=== PATIENT | female | born 1965 | race Caucasian/White ===

== ENCOUNTER 2022-07-29 12:00 | Emergency (ER) | payer OTHER, SELFPAY ==
[2022-07-29 12:07] VITALS: BP 144/94; PULSE 84; TEMP 37.3; O2SAT 97; BMI 25.6
--- NOTE | 2022-07-29 13:04 | ED.BACK ---
HPI - Back Pain/Injury General Chief Complaint: Back Injury/Pain Stated Complaint: Lower right side back pain Time Seen by Provider: 07/29/22 12:21 History of Present Illness HPI Narrative: This 56-year-old female comes in with right-sided low back pain that radiates down her leg. She does have a history of back problems and has taken a steroid in the past which helped improve these symptoms previously. She went to her chiropractor who instructed that she should come here for further evaluation and treatment. She does not report any recent injury event or strenuous activity. Related Data Home Medications Medication Instructions Recorded Confirmed Diabetic Test Strips 02/17/22 02/17/22 albuterol 90 mcg/actuation aerosol 2 spray inhalation PRN 02/17/22 02/17/22 inhaler albuterol sulfate 90 mcg/actuation 2 inhalation PRN 02/17/22 02/17/22 aerosol inhaler atorvastatin 20 mg tablet mg PO .Bedtime 02/17/22 02/17/22 blood-glucose meter (Accu-Chek 02/17/22 02/17/22 Guide Glucose Meter) cholecalciferol (vitamin D3) 50 250 mcg PO DAILY 02/17/22 02/17/22 mcg (2,000 unit) capsule citalopram 20 mg tablet 20 mg PO DAILY 02/17/22 02/17/22 fluorouracil 5 % topical cream 5 applic topical DIRECTED 02/17/22 02/17/22 gabapentin 300 mg capsule mg PO .Bedtime 02/17/22 02/17/22 glipizide 5 mg tablet 5 mg PO 02/17/22 02/17/22 hydrochlorothiazide 50 mg tablet mg PO DAILY 02/17/22 02/17/22 hydroxyzine pamoate 25 mg capsule mg PO PRN 02/17/22 02/17/22 levothyroxine 88 mcg tablet mcg PO DAILY 02/17/22 02/17/22 lorazepam 0.5 mg tablet mg PO .Daily as needed PRN 02/17/22 02/17/22 metformin 500 mg tablet 500 mg PO 02/17/22 02/17/22 Previous Rx's Medication Instructions Recorded cyclobenzaprine 10 mg tablet 10 mg PO TID #15 tabs 07/29/22 hydrocodone 5 mg-acetaminophen 325 1 tab PO Q4-6H PRN pain #20 tabs 07/29/22 mg tablet prednisone 10 mg tablet 10 mg PO TID PRN #30 tabs 07/29/22 Allergies Allergy/AdvReac Type Severity Reaction Status Date / Time morphine Allergy Mild Hives Verified 02/17/22 15:19 naproxen Allergy Mild Verified 02/17/22 15:19 Penicillins Allergy Mild Hives Verified 02/17/22 15:19 Review of Systems Status of ROS: Reports: 10 or more systems reviewed and unremarkable except as noted in History and below Narrative: Constitutional: No fevers, no weight gain or loss. Eyes: No discharge. No vision changes. HENT: No congestion, no sore throat, no ear pain. Cardiovascular: No chest pain, no palpitations. Respiratory: No shortness of breath, no wheezes, no cough. Gastrointestinal: No abdominal pain, no vomiting, no diarrhea. Genitourinary: No dysuria, no hematuria. Musculoskeletal: Normal range of motion. Right-sided low back pain radiating down the right leg. Skin: No rashes, no pruritis. Neurological: No dizziness, weakness, sensory change, speech change. Endo/Heme/Allergies: No bruising or bleeding. No polydipsia. Pysch: no suicidality, no anxiety, no insomnia. All other systems reviewed and are negative. [facility] Social History Smoking Status: Current every day smoker What tobacco products do you use: cigarettes Smoking packs per day: 1 Smoking cigarettes per day: 20.0 How often do you have a drink containing alcohol: never How often do you have six or more drinks on one occasion: Never AUDIT-C Alcohol total score: 0 Non-prescribed substance use: denies use Exam Narrative: Exam Narrative: Constitutional: Well-developed, well-nourished, no acute distress. HEENT: Normocephalic, atraumatic. Neck: Normal range of motion. Nontender. Supple. Heart: Intact distal pulses. Lungs: No chest discomfort. No wheezes, rhonchi, or rales. Abdomen: Nontender. Back: Low back pain on the right radiating down the right leg. Straight leg raise is negative bilaterally. Extremities: Normal range of motion. No injury. Skin: Intact. No rash. Warm. No erythema or pallor. Neurologic: No altered sensation. No weakness. Alert and oriented. Psychiatric: No suicidality. No anxiety or depression. No insomnia. Nursing notes and vitals signs are reviewed. Const: Vital Signs, click to edit/add: Vital Signs - 24 hr 07/29/22 12:07 Temperature 99.2 F Pulse Rate [Left P ulse Oximeter] 84 Blood Pressure [Ri ght Upper Arm] 144/94 H Pulse Oximetry 97 Oxygen Delivery Me thod Room Air Course Vital Signs Vital signs: Initial Vital Signs Temperature 99.2 F 07/29/22 12:07 Temperature Source Temporal Artery Scan 07/29/22 12:07 Pulse Rate 84 07/29/22 12:07 Blood Pressure 144/94 H 07/29/22 12:07 Blood Pressure Mean 110 07/29/22 12:07 Pulse Oximetry 97 07/29/22 12:07 Oxygen Delivery Method 07/29/22 12:07 Vital Signs Temperature 99.2 F 07/29/22 12:07 Pulse Rate 84 07/29/22 12:07 Blood Pressure 144/94 H 07/29/22 12:07 Pulse Oximetry 97 07/29/22 12:07 Oxygen Delivery Method 07/29/22 12:07 Temperature 99.2 F 07/29/22 12:07 Pulse Rate 84 07/29/22 12:07 Blood Pressure 144/94 H 07/29/22 12:07 Pulse Oximetry 97 07/29/22 12:07 Oxygen Delivery Method 07/29/22 12:07 MDM - Back Pain/Injury MDM Narrative Medical decision making narrative: This patient has symptoms typical of a lumbar radiculopathy. She has had symptoms like this in the past. There is no new injury event or mechanism of injury that would indicate imaging at this time. She received an intramuscular injection of Dilaudid and prescription for prednisone, Flexeril, and [place]. I advised her to have follow-up with a spine clinic if not improving. Discharge Plan Discharge Clinical Impression: Lumbar radiculopathy Patient Disposition: Home w/ Parent or Adult Condition: Stable Additional Instructions: Take medication as needed and indicated. Activity as tolerated. Follow up with Spine Clinic if not improving or worsening. Call [phone] for appointment. Prescriptions: New cyclobenzaprine 10 mg tablet 10 mg PO TID Qty: 15 0RF prednisone 10 mg tablet 10 mg PO TID PRNQty: 30 0RF hydrocodone-acetaminophen 5-325 mg tablet 1 tab PO Q4-6H PRN (Reason: pain) Qty: 20 0RF No Action (DME) blood-glucose meter [Accu-Chek Guide Glucose Meter] Misc See Rx Instructions .ROUTE Rx Instructions: As directed glipizide 5 mg tablet 5 mg PO levothyroxine 88 mcg tablet PO DAILY hydroxyzine pamoate 25 mg capsule PO PRN metformin 500 mg tablet 500 mg PO citalopram 20 mg tablet 20 mg PO DAILY (DME) Diabetic Test Strips Misc See Rx Instructions .ROUTE Rx Instructions: As directed albuterol 90 mcg/actuation aerosol 2 spray inhalation PRN atorvastatin 20 mg tablet PO .Bedtime albuterol sulfate 90 mcg/actuation HFA aerosol inhaler 2 inhalation PRN gabapentin 300 mg capsule PO .Bedtime lorazepam 0.5 mg tablet PO .Daily as needed PRN Rx Instructions: 1 po 30 minutes prior to flying for anxiety. hydrochlorothiazide 50 mg tablet PO DAILY cholecalciferol (vitamin D3) 50 mcg (2,000 unit) capsule 250 mcg PO DAILY fluorouracil 5 % cream 5 applic topical DIRECTED Rx Instructions: Apply topically to affected area one day every week. Follow Up/Referrals: Yuan Lira PA-C [Primary Care Provider] - Stand Alone Forms: [facility] Info Instructions
[2022-07-29] MEDS: HYDROmorphone 0.5 mg/0.5 ml inj 1 MG IM (13:23)
[2022-07-29 13:32] VITALS: BP 168/104; PULSE 80; O2SAT 95
== END 2022-07-29 13:33 | disposition home or self-care (01) ==
PROVIDERS: Emergency Provider Emergency Medicine Emergency Medical Services; PCP Physician Assistant Medical
DX: M54.16 Radiculopathy, lumbar region (principal)
CPT/HCPCS: 96372; 99283; 99284; J1170

== ENCOUNTER 2022-12-03 08:30 | Outpatient (CLI) | payer SELFPAY | END 2022-12-03 08:31 | disposition home or self-care (01) | PROVIDERS: PCP Physician Assistant Medical; Visit Provider Physician Assistant Medical | DX: I10 Essential (primary) hypertension (principal); E78.5 Hyperlipidemia, unspecified; E11.9 Type 2 diabetes mellitus without complications; E03.9 Hypothyroidism, unspecified; R79.89 Other specified abnormal findings of blood chemistry; E78.2 Mixed hyperlipidemia | CPT/HCPCS: 80053; 80061; 82043; 82570; 84439; 84443 ==

== ENCOUNTER 2023-02-05 21:58 | Outpatient (REF) | payer SELFPAY ==
[2023-02-12 19:59] LABS: C282Y Hemochromatosis Mutation Negative; H63D Hemochromatosis Mutation Negative; HFE PCR Specimen Whole Blood; S65C Hemochromatosis Mutation Negative
== END 2023-02-05 21:59 | disposition home or self-care (01) ==
LOC: LAB 21:58
PROVIDERS: PCP Physician Assistant Medical
DX: R79.89 Other specified abnormal findings of blood chemistry (principal); R68.81 Early satiety
CPT/HCPCS: 36415; 81256

== ENCOUNTER 2023-03-05 08:25 | Outpatient (CLI) | payer SELFPAY | END 2023-03-05 08:26 | disposition home or self-care (01) | LOC: NFLDREF 03-06 08:32 | PROVIDERS: PCP Physician Assistant Medical; Referring Provider Physician Assistant Medical; Visit Provider Physician Assistant Medical | DX: E03.9 Hypothyroidism, unspecified (principal); E11.9 Type 2 diabetes mellitus without complications; E78.5 Hyperlipidemia, unspecified | CPT/HCPCS: 80061; 84439; 84443; 84450; 84460 ==

== ENCOUNTER 2023-03-14 19:41 | Emergency (ER) | payer SELFPAY ==
[2023-03-14 19:48] VITALS: BP 144/82; PULSE 85; RESP 18; TEMP 35.4; O2SAT 98
[2023-03-14] MEDS: KETOROLAC 30 MG/ML inj 15 MG IM (20:24)
--- NOTE | 2023-03-14 21:44 | ED.DENTAL ---
HPI - Dental/Oral General Date Seen: 03/14/23 Chief complaint: Dental/Oral/Mouth Injury/Pain Stated complaint: Tooth removal last week dealing with a lot of pain Time Seen by Provider: 03/14/23 20:18 Source: patient and family Mode of arrival: ambulatory Limitations: no limitations History of Present Illness HPI Narrative: Patient is a 57-year-old female who presents here with a removal of the tooth, she has a history of carries, and had a tooth removed and [place] approximately 1 week ago she has had ongoing problems with pain, is unable to take ibuprofen because of a history of steatohepatitis. She tells me she called her liver specialist who recommended that she not take Tylenol or ibuprofen or least talk to the nurse. She presents here for help with this she has had no fevers or chills she is worried also about possible infection, she has been unable to get a hold of her dentist. MD Complaint: tooth pain Teeth map: 1. Severity: moderate Relieving factors: nothing Exacerbating factors: chewing and drinking fluids Context: history of dental caries Treatment prior to arrival: topical analgesic and other (Cloves) Related Data Home Medications Medication Instructions Recorded Confirmed Diabetic Test Strips 02/17/22 01/11/23 blood-glucose meter (Accu-Chek 02/17/22 01/11/23 Guide Glucose Meter) fluorouracil 5 % topical cream 5 applic topical DIRECTED 02/17/22 01/11/23 Previous Rx's Medication Instructions Recorded albuterol sulfate 90 mcg/actuation 2 puff inhalation Q4-6H PRN 11/26/22 aerosol inhaler shortness of breath or wheezing #8.5 grams gabapentin 300 mg capsule 300 mg PO .Bedtime #90 caps 12/03/22 glipizide 10 mg tablet 10 mg PO BID #180 tabs 12/03/22 lorazepam 0.5 mg tablet 0.5 mg PO .Daily as needed PRN 12/03/22 fear of flying #10 tabs metformin 1,000 mg tablet 1,000 mg PO BIDWMEAL #180 tabs 12/03/22 hydroxyzine pamoate 25 mg capsule 25 mg PO TID PRN anxiety #90 caps 12/04/22 citalopram 20 mg tablet 20 mg PO DAILY #90 tabs 01/07/23 benzocaine 10 % mucosal gel 1 applic mucous membrane QID PRN 01/11/23 mouth irritation #7 grams hydrochlorothiazide 50 mg tablet 50 mg PO DAILY #90 tabs 03/12/23 levothyroxine 100 mcg tablet 100 mcg PO QDAY #90 tabs 03/12/23 clindamycin HCl 300 mg capsule 300 mg PO TID #20 caps 03/14/23 gabapentin 300 mg capsule 300 mg PO TID #30 caps 03/14/23 Allergies Allergy/AdvReac Type Severity Reaction Status Date / Time Penicillins Allergy Mild Swelling Verified 01/11/23 14:02 of Lip/Tongue/Throat hydrocodone Allergy Verified 01/11/23 14:02 morphine AdvReac Mild Vomiting Verified 01/11/23 14:02 naproxen AdvReac Mild skin Verified 01/11/23 14:02 crawling acetaminophen AdvReac Heartburn Verified 01/11/23 14:02 Review of Systems Status of ROS: Reports: 10 or more systems reviewed and unremarkable except as noted in History and below [facility] Medical History Right upper quadrant abdominal pain ?R10.11 - Right upper quadrant pain (ICD-10) Wheezing ?R06.2 - Wheezing (ICD-10) Sinusitis ?J32.9 - Chronic sinusitis, unspecified (ICD-10) Seasonal allergic rhinitis ?J30.2 - Other seasonal allergic rhinitis (ICD-10) Malignant neoplasm of cervix ?C53.9 - Malignant neoplasm of cervix uteri, unspecified (ICD-10) 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 - Epidermal thickening, unspecified (ICD-10) History of squamous cell carcinoma in situ (SCCIS) of skin ?Z86.007 - Personal history of in-situ neoplasm of skin (ICD-10) History of malignant neoplasm of cervix ?Z85.41 - Personal history of malignant neoplasm of cervix uteri (ICD-10) History of eating disorder ?Z86.59 - Personal history of other mental and behavioral disorders (ICD-10) History of bladder stone ?Z87.448 - Personal history of other diseases of urinary system (ICD-10) Surgical History History of liver biopsy ?Z98.890 - Other specified postprocedural states (ICD-10) History of bladder repair surgery ?Z98.890 - Other specified postprocedural states (ICD-10) History of shoulder surgery ?Z98.890 - Other specified postprocedural states (ICD-10) History of hysterectomy ?Z90.710 - Acquired absence of both cervix and uterus (ICD-10) History of carpal tunnel release of both wrists ?Z98.890 - Other specified postprocedural states (ICD-10) History of bladder surgery ?Z98.890 - Other specified postprocedural states (ICD-10) Family History Mother Diabetes Sudden cardiac , Onset Age: 62 Father Diabetes Sister Diabetes Brother Diabetes Paternal Grandfather Diabetes Paternal Grandmother Diabetes Social History Narrative: Smoker Does not drink alcohol Does not use illicit drugs Smoking Status: Current every day smoker What tobacco products do you use: cigarettes Smoking packs per day: 1 Smoking cigarettes per day: 20.0 How often do you have a drink containing alcohol: never How often do you have six or more drinks on one occasion: Never AUDIT-C Alcohol total score: 0 Non-prescribed substance use: denies use Little interest or pleasure in doing things: several days Feeling down, depressed, or hopeless: several days Exam Narrative: Exam Narrative: Patient is seen in room 3 she is in no apparent distress she is here with a significant other. She has no trismus able to open her mouth, and there is evidence of the right lower more molar, removal, no lymphadenopathy anterior posterior chains, or sublingually notable. She has no mass within her pupil mucosa. Her tongue is otherwise normal. There is some area within the tooth cavity, that is a normal whitish looking post extraction Const: Vital Signs, click to edit/add: Vital Signs - 24 hr 03/14/23 19:48 Temperature 95.8 F L Pulse Rate [Left P ulse Oximeter] 85 Respiratory Rate 18 Blood Pressure [Ri ght Upper Arm] 144/82 H Pulse Oximetry 98 Oxygen Delivery Me thod Room Air Documenting provider has reviewed patient's vital signs: yes Course Course Hospital Course: I offered her a dental block, and a shot of lower does Toradol. I will also refill her gabapentin for 30 tablets, she will call her dentist tomorrow, I do believe she actually has initially dry socket and I will start her on clindamycin as this is worked well for her in the past Vital Signs Vital signs: Initial Vital Signs Temperature 95.8 F L 03/14/23 19:48 Temperature Source Temporal Artery Scan 03/14/23 19:48 Pulse Rate 85 03/14/23 19:48 Pulse Rhythm Regular 03/14/23 19:48 Respiratory Rate 18 03/14/23 19:48 Blood Pressure 144/82 H 03/14/23 19:48 Blood Pressure Mean 102 03/14/23 19:48 Blood Pressure Position Sitting 03/14/23 19:48 Pulse Oximetry 98 03/14/23 19:48 Oxygen Delivery Method Room Air 03/14/23 19:48 Vital Signs Temperature 95.8 F L 03/14/23 19:48 Pulse Rate 85 03/14/23 19:48 Respiratory Rate 18 03/14/23 19:48 Blood Pressure 144/82 H 03/14/23 19:48 Pulse Oximetry 98 03/14/23 19:48 Oxygen Delivery Method Room Air 03/14/23 19:48 Temperature 95.8 F L 03/14/23 19:48 Pulse Rate 85 03/14/23 19:48 Respiratory Rate 18 03/14/23 19:48 Blood Pressure 144/82 H 03/14/23 19:48 Pulse Oximetry 98 03/14/23 19:48 Oxygen Delivery Method Room Air 03/14/23 19:48 MDM - Dental/Oral MDM Narrative Medical decision making narrative: Life-threatening differential diagnosis considered include mastoiditis, and retropharyngeal abscess. Other differential diagnosis considered include dental caries, periodontal abscess, periapical abscess, parotitis, tooth avulsion, tooth fracture, gingivitis as well as other etiologies Medical Records Attestation: I reviewed the patient's medical records. Lab Data Attestation: I reviewed the patient's lab results. Discharge Plan Discharge Clinical Impression: Dry tooth socket, Pain in tooth Patient Disposition: Home w/ Parent or Adult Condition: Stable Instructions: Toothache (ED), Dry Socket (ED) Additional Instructions: Home rest prescription given for clindamycin, and gabapentin, called her dentist tomorrow, you can continue with the clove extract, and your other medications such as Tylenol. Avoidance of ibuprofen until you talk to your claims agent right of way. Activity Level: Light activity Prescriptions: New gabapentin 300 mg capsule 300 mg PO TID Qty: 30 0RF clindamycin HCl 300 mg capsule 300 mg PO TID Qty: 20 0RF No Action lorazepam 0.5 mg tablet 0.5 mg PO .Daily as needed PRN (Reason: fear of flying) Qty: 10 0RF Rx Instructions: 1 po 30 minutes prior to flying for anxiety. gabapentin 300 mg capsule 300 mg PO .Bedtime Qty: 90 3RF metformin 1,000 mg tablet 1,000 mg PO BIDWMEAL Qty: 180 0RF glipizide 10 mg tablet 10 mg PO BID Qty: 180 0RF hydroxyzine pamoate 25 mg capsule 25 mg PO TID PRN (Reason: anxiety) Qty: 90 3RF (DME) blood-glucose meter [Accu-Chek Guide Glucose Meter] Misc See Rx Instructions .Route Rx Instructions: As directed (DME) Diabetic Test Strips Misc See Rx Instructions .Route Rx Instructions: As directed fluorouracil 5 % cream 5 applic topical DIRECTED Rx Instructions: Apply topically to affected area one day every week. albuterol sulfate 90 mcg/actuation HFA aerosol inhaler 2 puff inhalation Q4-6H PRN (Reason: shortness of breath or wheezing) Qty: 8.5 0RF benzocaine 10 % gel 1 applic mucous membrane QID PRN (Reason: mouth irritation) Qty: 7 0RF citalopram 20 mg tablet 20 mg PO DAILY Qty: 90 0RF hydrochlorothiazide 50 mg tablet 50 mg PO DAILY Qty: 90 3RF levothyroxine 100 mcg tablet 100 mcg PO QDAY Qty: 90 1RF Follow Up/Referrals: Yuan Lira PA-C [Primary Care Provider] - Stand Alone Forms: [facility] [employer] Info Instructions
== END 2023-03-14 20:32 | disposition home or self-care (01) ==
PROVIDERS: Emergency Provider Family Medicine; PCP Physician Assistant Medical
DX: M27.3 Alveolitis of jaws (principal)
CPT/HCPCS: 96372; 99283; J1885

== ENCOUNTER 2023-04-09 08:37 | Outpatient (CLI) | payer SELFPAY ==
--- NOTE | 2023-04-09 09:00 | CRLHL7_ITS ---
For Patients: As a result of the Century Cures Act, medical imaging exams and procedure reports are released immediately into your electronic medical record. You may view this report before your referring provider. If you have questions, please contact your health care provider. INDICATION: Nonalcoholic steatohepatitis. Chronic diarrhea.. TECHNIQUE: CT abdomen and pelvis acquired with 100 cc Omnipaque 350 IV contrast. COMPARISON: None. FINDINGS: Heart is normal in size. No pericardial or pleural effusion. Clear lung bases. No focal hepatic lesion. Liver is not enlarged. Diffuse hepatic steatosis. Spleen, gallbladder, pancreas, adrenals and kidneys are within normal limits. No enlarged retroperitoneal or pelvic adenopathy. No free pelvic fluid or ascites. Status post hysterectomy. Urinary bladder is within normal limits. No abnormally dilated bowel loops to suggest bowel obstruction. Normal appendix. Both ovaries are seen. no pneumoperitoneum. No suspicious bony lesion. IMPRESSION: Hepatic steatosis. No focal liver lesion. Please note that all CT scans at this facility use dose modulation, iterative reconstruction, and/or weight-based dosing when appropriate to reduce radiation dose to as low as reasonably achievable. Dictated by Isaiah Lira MD @ 04/13/2023 10:01:22 AM (Electronically Signed)
== END 2023-04-09 08:38 | disposition home or self-care (01) ==
LOC: CT 08:39
PROVIDERS: PCP Physician Assistant Medical; Visit Provider Physician Assistant
DX: K75.81 Nonalcoholic steatohepatitis (NASH) (principal); K52.9 Noninfective gastroenteritis and colitis, unspecified; K76.0 Fatty (change of) liver, not elsewhere classified
CPT/HCPCS: 74177; Q9967

== ENCOUNTER 2023-05-18 08:37 | Outpatient (CLI) | payer SELFPAY | END 2023-05-18 08:38 | disposition home or self-care (01) | PROVIDERS: PCP Physician Assistant Medical; Visit Provider Physician Assistant Medical | DX: E11.9 Type 2 diabetes mellitus without complications (principal); I10 Essential (primary) hypertension; E03.9 Hypothyroidism, unspecified; E78.5 Hyperlipidemia, unspecified; K76.0 Fatty (change of) liver, not elsewhere classified; F41.9 Anxiety disorder, unspecified | CPT/HCPCS: 82043; 82570; 84439; 84443 ==

== ENCOUNTER 2023-08-30 17:54 | Emergency (ER) | payer MEDICAID, SELFPAY ==
[2023-08-30 18:03] VITALS: BP 135/88; PULSE 101; RESP 16; TEMP 36.4; O2SAT 95; BMI 26.9
--- NOTE | 2023-08-30 18:14 | ED.GENADULT ---
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 Has been having pain, bloating, pressure on R side of abdomen that started about 5 days ago. Pain about 5/10. Intermittent nausea/vomiting . 58-year-old woman presenting to the emergency department with concern of abdominal pain the right side of the abdomen or the last 5 days or so. Feels like an intense ache. Feels a little bit better she admits later which places or hand at her side. No dysuria but she has noted stronger odor lately. When I initially am talking with her she is in tears worrying that ?it is getting worse?. Does have a history of VALENCIA. So diabetes. Blood sugars have been a little bit low. She denies constipation of a had a good bowel movement today. Notes usual daily bowel movements but tends towards looser stools from diabetic meds which she a just a little bit also in light of lower blood sugars. She has not had any fever or indication infection otherwise. Did take some ibuprofen earlier today. Acetaminophen makes her stomach hurt she says. Did apparently have a liver biopsy back in January or February of 2023. That is the last time she had an ultrasound. She still has her gallbladder. Has not had any unusual vaginal discharge noting that she is status post hysterectomy; that her ovaries are still there but ?I think they're ?. She has been experiencing nausea with discomfort as above but not actually vomiting. Did try some hydroxyzine but it did seem to make a difference. She has this I believe for anxiety. Does not take chronic pain medication she says. Also notes a number of lesions on her skin and is worried about what I think is probably recurrence of squamous cell carcinoma. Most of what she points out look to be in line with evolving cutaneous horns or keratosis. History of Mohs on her left hand and she is under some degree of surveillance apparently. Related Data Home Medications Medication Instructions Recorded Confirmed Diabetic Test Strips 02/17/22 05/18/23 blood-glucose meter (Accu-Chek 02/17/22 05/18/23 Guide Glucose Meter) fluorouracil 5 % topical cream 5 applic topical DIRECTED 02/17/22 05/18/23 Previous Rx's Medication Instructions Recorded albuterol sulfate 90 mcg/actuation 2 puff inhalation Q4-6H PRN 11/26/22 aerosol inhaler shortness of breath or wheezing #8.5 grams lorazepam 0.5 mg tablet 0.5 mg PO .Daily as needed PRN 12/03/22 fear of flying #10 tabs hydroxyzine pamoate 25 mg capsule 25 mg PO TID PRN anxiety #90 caps 12/04/22 hydrochlorothiazide 50 mg tablet 50 mg PO DAILY #90 tabs 03/12/23 gabapentin 300 mg capsule 300 mg PO TID #30 caps 03/14/23 blood-glucose meter,continuous #1 ea 05/18/23 (Dexcom G7 Finished Stock Inspector) blood-glucose sensor (Dexcom G7 #1 ea 05/18/23 Sensor device) blood-glucose transmitter (Dexcom #1 ea 05/18/23 G6 Transmitter device) citalopram 20 mg tablet See Rx Instructions .Route 05/18/23 .COMPLEX #90 tabs glipizide 5 mg tablet 5 mg PO BID #180 tabs 05/19/23 levothyroxine 100 mcg tablet 100 mcg PO QDAY #45 tabs 05/19/23 levothyroxine 88 mcg tablet 88 mcg PO QDAY #45 tabs 05/19/23 ondansetron 4 mg disintegrating 4 mg PO Q4-6H PRN nausea and 08/30/23 tablet vomiting #12 tabs Allergies Allergy/AdvReac Type Severity Reaction Status Date / Time Penicillins Allergy Mild Swelling Verified 05/18/23 08:24 of Lip/Tongue/Throat hydrocodone Allergy Verified 05/18/23 08:24 morphine AdvReac Mild Vomiting Verified 05/18/23 08:24 naproxen AdvReac Mild skin Verified 05/18/23 08:24 crawling acetaminophen AdvReac Heartburn Verified 05/18/23 08:24 Review of Systems Status of ROS: Reports: 6 or more systems reviewed and unremarkable except as noted in History and below 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 - Epidermal thickening, unspecified (ICD-10) History of squamous cell carcinoma in situ (SCCIS) of skin ?Z86.007 - Personal history of in-situ neoplasm of skin (ICD-10) History of malignant neoplasm of cervix ?Z85.41 - Personal history of malignant neoplasm of cervix uteri (ICD-10) History of eating disorder ?Z86.59 - Personal history of other mental and behavioral disorders (ICD-10) History of bladder stone ?Z87.448 - Personal history of other diseases of urinary system (ICD-10) Surgical History History of liver biopsy ?Z98.890 - Other specified postprocedural states (ICD-10) History of bladder repair surgery ?Z98.890 - Other specified postprocedural states (ICD-10) History of shoulder surgery ?Z98.890 - Other specified postprocedural states (ICD-10) History of hysterectomy ?Z90.710 - Acquired absence of both cervix and uterus (ICD-10) History of carpal tunnel release of both wrists ?Z98.890 - Other specified postprocedural states (ICD-10) History of bladder surgery ?Z98.890 - Other specified postprocedural states (ICD-10) Family History Mother Diabetes Sudden cardiac , Onset Age: 62 Father Diabetes Sister Diabetes Brother Diabetes Paternal Grandfather Diabetes Paternal Grandmother Diabetes Social History Narrative: Smoker Does not drink alcohol Does not use illicit drugs Smoking Status: Current every day smoker What tobacco products do you use: cigarettes Smoking packs per day: 0.5 Smoking cigarettes per day: 10.0 Do you use any of these nicotine containing products: None How often do you have a drink containing alcohol: never How often do you have six or more drinks on one occasion: Never AUDIT-C Alcohol total score: 0 Non-prescribed substance use: denies use Little interest or pleasure in doing things: more than half the days Feeling down, depressed, or hopeless: more than half the days service: No Exam Narrative: Exam Narrative: Pleasant. As noted initially tearful. Skin is warm and dry. On the right lower leg there is a sub cm cutaneous horn is noted. Smaller on the left and another lesion on her right upper chest trace erythema surrounding 1 mm by 3 mm keratotic lesion I think as well. I mention to her that I possible this is start of squamous cell but it is too hard for me to tell right now. She has the various tattoos. Lungs are clear. Abdomen is soft and mild to moderately tender in the right upper quadrant. No peritoneal signs. No is no flank pain. Distracted to cold hands. Heart is in elevated but regular rate. Const: Vital Signs, click to edit/add: Vital Signs - 24 hr 08/30/23 18:03 08/30/23 20:11 Temperature 97.6 F Pulse Rate [Pulse Oximeter] 101 H 74 Respiratory Rate 16 18 Blood Pressure [Ri t Upper Arm] 135/88 113/73 Pulse Oximetry 95 94 Oxygen Delivery Me thod Room Air Room Air Documenting provider has reviewed patient's vital signs: yes Course Vital Signs Vital signs: Initial Vital Signs Temperature 97.6 F 08/30/23 18:03 Temperature Source Temporal Artery Scan 08/30/23 18:03 Pulse Rate 101 H 08/30/23 18:03 Respiratory Rate 16 08/30/23 18:03 Blood Pressure 135/88 08/30/23 18:03 Blood Pressure Mean 103 08/30/23 18:03 Blood Pressure Position Sitting 08/30/23 18:03 Pulse Oximetry 95 08/30/23 18:03 Oxygen Delivery Method Room Air 08/30/23 18:03 Vital Signs Temperature 97.6 F 08/30/23 18:03 Pulse Rate 101 H 08/30/23 18:03 Respiratory Rate 16 08/30/23 18:03 Blood Pressure 135/88 08/30/23 18:03 Pulse Oximetry 95 08/30/23 18:03 Oxygen Delivery Method Room Air 08/30/23 18:03 Temperature 97.6 F 08/30/23 18:03 Pulse Rate 74 08/30/23 20:11 Respiratory Rate 18 08/30/23 20:11 Blood Pressure 113/73 08/30/23 20:11 Pulse Oximetry 94 08/30/23 20:11 Oxygen Delivery Method Room Air 08/30/23 20:11 Medications Administered Medications: Discontinued Medications Generic Name Dose Route Start Last Admin Trade Name Catarinoq PRN Reason Stop Dose Admin Sodium Chloride 1,000 mls @ 1,000 mls/hr 08/30/23 18:40 08/30/23 19:45 0.9 % Sodium Chloride 1000 Ml IV 08/30/23 19:39 Infused .Q1H ONE Infusion Ondansetron HCl 4 mg 08/30/23 19:10 08/30/23 19:18 Ondansetron 2 Mg/Ml Inj IVP 08/30/23 19:11 4 mg ONCE ONE Administration Promethazine HCl 12.5 mg 08/30/23 19:10 08/30/23 19:57 Promethazine 25 Mg/Ml Inj IVP 08/30/23 19:11 12.5 mg ONCE ONE Administration Medical Decision Making MDM Narrative Medical decision making narrative: While I still have ultrasound available this evening I think would be reasonable to do an ultrasound looking for progression of disease or possibly gallbladder issue, biliary colic. Will be collecting related labs as well. Pending progression of disease ascites might cause some pain. Is not clearly a rib edge injury. Low lying pneumonia I suppose could possibly be this however seems without cough or cold-type symptoms. Could be gas symptoms but of unusual duration and location. Possibly diverticulitis. Does not appear to be constipated. Vascular disruption? [employer] is available to quickly do limited abdominal ultrasound. Reported as normal per my conversation with them. Radiology over-read as below INDICATION: Abdominal pain. History of VALENCIA. COMPARISON: CT abdomen and pelvis done 04/09/2023. Findings: The liver is of diffuse increased echogenicity consistent with fatty infiltration of the liver. There is no focal liver lesion. There is no gallstone, gallbladder wall thickening or pericholecystic fluid. The common bile duct is not dilated measuring 0.4 cm. The right kidney measures 10.0 x 5.0 x 4.8 cm with a cortical thickness of 1.1 cm. The right kidney is unremarkable. The visualized portion of pancreas is unremarkable. The proximal aorta measures 1.8 cm in AP dimension. IMPRESSION: No acute abnormality. Fatty infiltration of the liver. Labs are not unexpected other than very mildly elevated white count had a little over 11,000. Transaminases are not inconsistent with known underlying liver disease/fatty liver. Fatty liver, Valencia, I suppose could be causing some pain. There is no suggestion of ascites. Was improved with Zofran but with ultrasound procedure I think discomfort amplified nausea again this was improved again with promethazine. Did receive a L of normal saline. Reexamined abdomen. Still little sore in the right upper quadrant. Is clearly not a rib issue. Ultimately she was requesting departure with intention to follow up with [facility] with whom she already has a relationship. I had anticipated potential CT for further investigation although vitals are reassuring as is her limited degree of discomfort and the labs generally. See patient discharge plan Medical Records Medical records reviewed: Yes I reviewed the patient's medical records Lab Data Lab results reviewed: Yes I reviewed the patient's lab results Labs: Lab Results 08/30/23 08/30/23 08/30/23 Range/Units 18:15 18:15 18:15 WBC 11.39 H (4.50-11.00) K/uL RBC 5.15 (4.00-5.20) m/uL Hgb 16.8 H (12.0-16.0) gm/dL Hct 46.9 (33.0-51.0) % MCV 91 (80-100) fL MCH 33 (26-34) pg MCHC 36 (32-36) gm/dL RDW Coeff of Hammad 11.5 (11.5-15.5) % Plt Count 258 (140-440) K/uL Neut % (Auto) 33.3 L (42.0-72.0) % Lymph % (Auto) 54.0 H (20-44) % [place] % (Auto) 9.0 (0.0-11.0) % Eos % (Auto) 3.0 (0.0-7.0) % Baso % (Auto) 0.4 (0.0-3.0) % Neut # (Auto) 3.80 (1.7-7.0) K/uL Lymph # (Auto) 6.20 H (0.90-2.90) K/uL [place] # (Auto) 1.00 H (0.00-0.90) K/UL Eos # (Auto) 0.30 (0.00-0.50) K/uL Baso # (Auto) 0.00 (0.00-0.30) K/uL Abs Immat Gran (auto) 0.00 (0.00-0.30) K/uL Imm/Tot Granulo (auto) 0.3 % Diff Slide Review Acceptable Review (Acceptable) Sodium Cancelled 137 Potassium Cancelled 3.5 L Chloride Cancelled Carbon Dioxide Anion Gap BUN Creatinine Estimated Creat Clear Estimated GFR Glucose Calcium Total Bilirubin (0.1-1.5) mg/dL Direct Bilirubin (0.0-0.5) mg/dL AST (12-35) U/L ALT (4-35) U/L Alkaline Phosphatase (40-150) U/L Total Creatine Kinase C-Reactive Protein Total Protein (6.0-8.3) g/dL Albumin (3.3-5.0) g/dL Lipase (23-300) U/L Urine Color (Yellow) Urine Appearance (Clear) Urine pH (5.0-8.5) Ur Specific [place] (1.000-1.030) Urine Protein (Negative) Urine Glucose (UA) (Negative) Urine Ketones (Negative) Urine Blood (Negative) Urine Nitrite (Negative) Urine Bilirubin (Negative) Urine Urobilinogen (0.2-1.0) Ur Leukocyte Esterase (Negative) Urine RBC (0-2) Urine WBC (0-5) Ur Squamous Epith Cells (None-Few) Urine Bacteria (None) 08/30/23 08/30/23 08/30/23 Range/Units 18:15 18:15 18:15 WBC (4.50-11.00) K/uL RBC (4.00-5.20) m/uL Hgb (12.0-16.0) gm/dL Hct (33.0-51.0) % MCV (80-100) fL MCH (26-34) pg MCHC (32-36) gm/dL RDW Coeff of Hammad (11.5-15.5) % Plt Count (140-440) K/uL Neut % (Auto) (42.0-72.0) % Lymph % (Auto) (20-44) % [place] % (Auto) (0.0-11.0) % Eos % (Auto) (0.0-7.0) % Baso % (Auto) (0.0-3.0) % Neut # (Auto) (1.7-7.0) K/uL Lymph # (Auto) (0.90-2.90) K/uL [place] # (Auto) (0.00-0.90) K/UL Eos # (Auto) (0.00-0.50) K/uL Baso # (Auto) (0.00-0.30) K/uL Abs Immat Gran (auto) (0.00-0.30) K/uL Imm/Tot Granulo (auto) % Diff Slide Review (Acceptable) Sodium Potassium Chloride 100 Carbon Dioxide Cancelled 27 Anion Gap Cancelled 10 BUN Cancelled Creatinine Estimated Creat Clear Estimated GFR Glucose Calcium Total Bilirubin (0.1-1.5) mg/dL Direct Bilirubin (0.0-0.5) mg/dL AST (12-35) U/L ALT (4-35) U/L Alkaline Phosphatase (40-150) U/L Total Creatine Kinase C-Reactive Protein Total Protein (6.0-8.3) g/dL Albumin (3.3-5.0) g/dL Lipase (23-300) U/L Urine Color (Yellow) Urine Appearance (Clear) Urine pH (5.0-8.5) Ur Specific [place] (1.000-1.030) Urine Protein (Negative) Urine Glucose (UA) (Negative) Urine Ketones (Negative) Urine Blood (Negative) Urine Nitrite (Negative) Urine Bilirubin (Negative) Urine Urobilinogen (0.2-1.0) Ur Leukocyte Esterase (Negative) Urine RBC (0-2) Urine WBC (0-5) Ur Squamous Epith Cells (None-Few) Urine Bacteria (None) 08/30/23 08/30/23 08/30/23 Range/Units 18:15 18:15 18:15 WBC (4.50-11.00) K/uL RBC (4.00-5.20) m/uL Hgb (12.0-16.0) gm/dL Hct (33.0-51.0) % MCV (80-100) fL MCH (26-34) pg MCHC (32-36) gm/dL RDW Coeff of Hammad (11.5-15.5) % Plt Count (140-440) K/uL Neut % (Auto) (42.0-72.0) % Lymph % (Auto) (20-44) % [place] % (Auto) (0.0-11.0) % Eos % (Auto) (0.0-7.0) % Baso % (Auto) (0.0-3.0) % Neut # (Auto) (1.7-7.0) K/uL Lymph # (Auto) (0.90-2.90) K/uL [place] # (Auto) (0.00-0.90) K/UL Eos # (Auto) (0.00-0.50) K/uL Baso # (Auto) (0.00-0.30) K/uL Abs Immat Gran (auto) (0.00-0.30) K/uL Imm/Tot Granulo (auto) % Diff Slide Review (Acceptable) Sodium Potassium Chloride Carbon Dioxide Anion Gap BUN 18 Creatinine Cancelled 0.8 Estimated Creat Clear Cancelled 60.62 Estimated GFR Cancelled Glucose Calcium Total Bilirubin (0.1-1.5) mg/dL Direct Bilirubin (0.0-0.5) mg/dL AST (12-35) U/L ALT (4-35) U/L Alkaline Phosphatase (40-150) U/L Total Creatine Kinase C-Reactive Protein Total Protein (6.0-8.3) g/dL Albumin (3.3-5.0) g/dL Lipase (23-300) U/L Urine Color (Yellow) Urine Appearance (Clear) Urine pH (5.0-8.5) Ur Specific [place] (1.000-1.030) Urine Protein (Negative) Urine Glucose (UA) (Negative) Urine Ketones (Negative) Urine Blood (Negative) Urine Nitrite (Negative) Urine Bilirubin (Negative) Urine Urobilinogen (0.2-1.0) Ur Leukocyte Esterase (Negative) Urine RBC (0-2) Urine WBC (0-5) Ur Squamous Epith Cells (None-Few) Urine Bacteria (None) 08/30/23 08/30/23 08/30/23 Range/Units 18:15 18:15 18:15 WBC (4.50-11.00) K/uL RBC (4.00-5.20) m/uL Hgb (12.0-16.0) gm/dL Hct (33.0-51.0) % MCV (80-100) fL MCH (26-34) pg MCHC (32-36) gm/dL RDW Coeff of Hammad (11.5-15.5) % Plt Count (140-440) K/uL Neut % (Auto) (42.0-72.0) % Lymph % (Auto) (20-44) % [place] % (Auto) (0.0-11.0) % Eos % (Auto) (0.0-7.0) % Baso % (Auto) (0.0-3.0) % Neut # (Auto) (1.7-7.0) K/uL Lymph # (Auto) (0.90-2.90) K/uL [place] # (Auto) (0.00-0.90) K/UL Eos # (Auto) (0.00-0.50) K/uL Baso # (Auto) (0.00-0.30) K/uL Abs Immat Gran (auto) (0.00-0.30) K/uL Imm/Tot Granulo (auto) % Diff Slide Review (Acceptable) Sodium Potassium Chloride Carbon Dioxide Anion Gap BUN Creatinine Estimated Creat Clear Estimated GFR 85 Glucose Cancelled 280 H Calcium Cancelled 9.5 Total Bilirubin 0.4 (0.1-1.5) mg/dL Direct Bilirubin 0.2 (0.0-0.5) mg/dL AST 53 H (12-35) U/L ALT 71 H (4-35) U/L Alkaline Phosphatase 78 (40-150) U/L Total Creatine Kinase Cancelled C-Reactive Protein Total Protein (6.0-8.3) g/dL Albumin (3.3-5.0) g/dL Lipase (23-300) U/L Urine Color (Yellow) Urine Appearance (Clear) Urine pH (5.0-8.5) Ur Specific [place] (1.000-1.030) Urine Protein (Negative) Urine Glucose (UA) (Negative) Urine Ketones (Negative) Urine Blood (Negative) Urine Nitrite (Negative) Urine Bilirubin (Negative) Urine Urobilinogen (0.2-1.0) Ur Leukocyte Esterase (Negative) Urine RBC (0-2) Urine WBC (0-5) Ur Squamous Epith Cells (None-Few) Urine Bacteria (None) 08/30/23 08/30/23 08/30/23 Range/Units 18:15 18:15 19:45 WBC (4.50-11.00) K/uL RBC (4.00-5.20) m/uL Hgb (12.0-16.0) gm/dL Hct (33.0-51.0) % MCV (80-100) fL MCH (26-34) pg MCHC (32-36) gm/dL RDW Coeff of Hammad (11.5-15.5) % Plt Count (140-440) K/uL Neut % (Auto) (42.0-72.0) % Lymph % (Auto) (20-44) % [place] % (Auto) (0.0-11.0) % Eos % (Auto) (0.0-7.0) % Baso % (Auto) (0.0-3.0) % Neut # (Auto) (1.7-7.0) K/uL Lymph # (Auto) (0.90-2.90) K/uL [place] # (Auto) (0.00-0.90) K/UL Eos # (Auto) (0.00-0.50) K/uL Baso # (Auto) (0.00-0.30) K/uL Abs Immat Gran (auto) (0.00-0.30) K/uL Imm/Tot Granulo (auto) % Diff Slide Review (Acceptable) Sodium Potassium Chloride Carbon Dioxide Anion Gap BUN Creatinine Estimated Creat Clear Estimated GFR Glucose Calcium Total Bilirubin (0.1-1.5) mg/dL Direct Bilirubin (0.0-0.5) mg/dL AST (12-35) U/L ALT (4-35) U/L Alkaline Phosphatase (40-150) U/L Total Creatine Kinase 88 C-Reactive Protein Cancelled 0.5 Total Protein 8.2 (6.0-8.3) g/dL Albumin 4.6 (3.3-5.0) g/dL Lipase 286 (23-300) U/L Urine Color Yellow (Yellow) Urine Appearance Clear (Clear) Urine pH 6.5 (5.0-8.5) Ur Specific [place] 1.025 (1.000-1.030) Urine Protein Negative (Negative) Urine Glucose (UA) 1+ A (Negative) Urine Ketones Negative (Negative) Urine Blood Negative (Negative) Urine Nitrite Negative (Negative) Urine Bilirubin Negative (Negative) Urine Urobilinogen 0.2 (0.2-1.0) Ur Leukocyte Esterase Negative (Negative) Urine RBC 0-2 (0-2) Urine WBC 0-2 (0-5) Ur Squamous Epith Cells Few (None-Few) Urine Bacteria None (None) Discharge Plan Discharge Clinical Impression: Right upper quadrant abdominal pain, VALENCIA (nonalcoholic steatohepatitis) Patient Disposition: Home w/ Parent or Adult Condition: Stable Additional Instructions: I understand that you want to go and follow-up with [facility]. There are some diagnoses that we have not ruled out yet. I understand that you do not want to wait for CT imaging. Some of this differential might include dysfunctional gallbladder, diverticulitis, dissecting aneurysm. Please return/be seen if pain gets much more intense and persistent, you develop a fever, become short of breath, experience chest pain. I am sorry we are out of Zofran in the [facility], so I have sent it to your pharmacy Prescriptions: New ondansetron 4 mg tablet,disintegrating 4 mg PO Q4-6H PRN (Reason: nausea and vomiting) Qty: 12 0RF No Action lorazepam 0.5 mg tablet 0.5 mg PO .Daily as needed PRN (Reason: fear of flying) Qty: 10 0RF Rx Instructions: 1 po 30 minutes prior to flying for anxiety. hydroxyzine pamoate 25 mg capsule 25 mg PO TID PRN (Reason: anxiety) Qty: 90 3RF (DME) blood-glucose meter [Accu-Chek Guide Glucose Meter] Misc See Rx Instructions .Route Rx Instructions: As directed (DME) Diabetic Test Strips Misc See Rx Instructions .Route Rx Instructions: As directed fluorouracil 5 % cream 5 applic topical DIRECTED Rx Instructions: Apply topically to affected area one day every week. albuterol sulfate 90 mcg/actuation HFA aerosol inhaler 2 puff inhalation Q4-6H PRN (Reason: shortness of breath or wheezing) Qty: 8.5 0RF (DME) Wallept G6 Transmitter Device See Rx Instructions .Route Qty: 1 0RF Rx Instructions: As directed (DME) Dexcom G7 Finished Stock Inspector Misc See Rx Instructions .Route Qty: 1 0RF Rx Instructions: As directed (DME) Dexcom G7 Sensor Device See Rx Instructions .Route Qty: 1 0RF Rx Instructions: As directed citalopram 20 mg tablet See Rx Instructions .ROUTE .COMPLEX Qty: 90 3RF Dose Instruction: TAKE 1 TABLET BY MOUTH DAILY Rx Instructions: TAKE 1 TABLET BY MOUTH DAILY glipizide 5 mg tablet 5 mg PO BID Qty: 180 0RF levothyroxine 88 mcg tablet 88 mcg PO QDAY Qty: 45 0RF Hold Instructions: Doctor's Order Rx Instructions: Alternate every other day with 88mcg and 100mcg levothyroxine 100 mcg tablet 100 mcg PO QDAY Qty: 45 0RF Rx Instructions: Alternate every other day with 88mcg and 100mcg gabapentin 300 mg capsule 300 mg PO TID Qty: 30 0RF Hold Instructions: Doctor's Order hydrochlorothiazide 50 mg tablet 50 mg PO DAILY Qty: 90 3RF Follow Up/Referrals: Yuan Lira PA-C [Primary Care Provider] - Stand Alone Forms: [employer] Info Instructions
--- NOTE | 2023-08-30 18:30 | CRLHL7_ITS ---
For Patients: As a result of the Century Cures Act, medical imaging exams and procedure reports are released immediately into your electronic medical record. You may view this report before your referring provider. If you have questions, please contact your health care provider. INDICATION: Abdominal pain. History of VALENCIA. COMPARISON: CT abdomen and pelvis done 04/09/2023. Findings: The liver is of diffuse increased echogenicity consistent with fatty infiltration of the liver. There is no focal liver lesion. There is no gallstone, gallbladder wall thickening or pericholecystic fluid. The common bile duct is not dilated measuring 0.4 cm. The right kidney measures 10.0 x 5.0 x 4.8 cm with a cortical thickness of 1.1 cm. The right kidney is unremarkable. The visualized portion of pancreas is unremarkable. The proximal aorta measures 1.8 cm in AP dimension. IMPRESSION: No acute abnormality. Fatty infiltration of the liver. Dictated by Almas Chang MD @ 08/30/2023 7:30:59 PM (Electronically Signed)
[2023-08-30] MEDS: 0.9 % SODIUM CHLORIDE 1000 ml 1,000 ML IV (18:40)
--- OUTSIDE RECORDS SUMMARY | 2023-08-30 18:41 | XMS_ITS | Data Portability ---
Author Name Unknown Address [address] [place] [address] Phone [phone] Organization [facility], Main Office Address [address] [place] [address] Assessment Encounter Date Assessment Date Assessment LastModified by Organization Details LastModified Time 10/28/2020 10/28/2020 1. 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 Here for Mohs surgery. Verbally we discussed the taut nature of the hand once its placed in a fist formation. Risk of infection being higher. She has artificial nails we will start doxycycline 100 mg p.o. twice daily. Warned of GI upset photosensitivity. She is taking it before without difficulties. She will take 2 to 3 days off of working in the [employer] and work in the office. Reviewed elevation and support ice. Reviewed the chance of infection bleeding the length of the scar. Lengthening of the scar to decrease tension. Cleansed with Betadine followed by alcohol, anesthetized 1% lidocaine with epinephrine. Mohs case number M 21? 0 3 6. Stage I: Curette debulk. 2 mm margins taken down to the subcutis revealing no residual squamous cell carcinoma. Total stages 1, total sections 1. Final defect 1.2 x 1.2 cm. Tangentially oriented redundancies were removed. Undermined all directions 1 cm. Hemostasis obtained with electrocautery and pressure. Closed with 4-0 Vicryl and 4-0 nylon. Elevation ice were all reviewed. Typewritten and verbal wound care instructions given. Final intermediate closure length was 7.0 cm. Pressure dressing applied. 2. Hypertrophic actinic keratosis left pretibial leg treated with cryotherapy. Discussed premalignant nature 1 lesion total. 3. Seborrheic keratosis x2 on the thigh and one on the left popliteal fossa offered reassurance. Follow-up in 15 days in [place]. Verbal, typewritten wound care instructions given. Cell phone number given [email or web address] Not available 10/28/2020 14:55:38 Plan of Treatment Reminders Order Date Submit Date Provider Last Modified By Organization Details Last Modified Time Details Appointments None recorded. Lab None recorded. Referral None recorded. Procedures None recorded. Surgeries None recorded. Imaging None recorded. Medication Orders doxycycline hyclate 100 mg capsule 2020 021 [email or web address] [id number], [address] [place], [place], [id number], 15:28:55 Patient TargetsNo targets recorded. Patient Instructions Encounter Date Encounter Id Patient Instructions Last Modified By Organization Details Last Modified Time 10/28/2020 [id number] actinic keratosis: care instructions Not available 10/28/2020 15:29:06 cellulitis: care instructions Not available 10/28/2020 14:24:45 Reason for Referral None Reported. Results Created Date Observation Date Name Description Value Unit Range Abnormal Flag LastModifiedBy Organization Detail LastModifiedTime Result Notes None recorded. Medical Equipment None Reported. Medications Name Sig Start Date Stop Date Status Note LastModified by Organization Details LastModified Time doxycycline hyclate 100 mg capsule TAKE 1 CAPSULE BY MOUTH TWICE DAILY active Not Available Not Available No t Available hydrochlorot hiazide 50 mg tablet TAKE 1 TABLET BY MOUTH DAILY active Not Available Not Available Not Available ondansetron HCl 4 mg tablet TK 1 T PO EVERY 6 HOURS PRN active Not Available Not Available No t Available fluorouracil 5 % topical cream active Not Available Not Available Not Available simvastatin 10 mg tablet TK 1 T PO HS active Not Available Not Available No t Available acetaminophe n 300 mg-codeine 30 mg tablet TK 1-2 TS PO EVERY 4 HOURS PRN active Not Available Not Available No t Available ketorolac 10 mg tablet TK 1 T PO TID PRN active Not Available Not Available No t Available levothyroxin e 75 mcg tablet TK 1 T PO QD active Not Available Not Available No t Available levothyroxin e 100 mcg tablet TAKE 1 TABLET BY MOUTH EVERY DAY active Not Available Not Available No t Available citalopram 20 mg tablet TAKE 1 TABLET BY MOUTH DAILY active Not Available Not Available Not Available lorazepam 0.5 mg tablet TK 1 T PO 30 MINUTES PRIOR TO FLIGHT PRN FOR ANXIETY active Not Available Not Available Not Available gabapentin 300 mg capsule TAKE 1 CAPSULE BY MOUTH AT BEDTIME active Not Available Not Available No t Available mupirocin 2 % topical ointment APPLY EXTERNALLY TO THE AFFECTED AREA THREE TIMES DAILY active Not Available Not Available Not Available cefdinir 300 mg capsule TK 1 C PO BID FOR 10 DAYS active Not Available Not Available No t Available metformin ER 500 mg tablet,exten ded release 24 hr TAKE TWO TABLETS BY MOUTH TWICE DAILY active Not Available Not Available No t Available levothyroxin e 112 mcg tablet TAKE 1 TABLET BY MOUTH DAILY active Not Available Not Available Not Available hydroxyzine pamoate 25 mg capsule TAKE 1 CAPSULE BY MOUTH THREE TIMES DAILY NEEDED active Not Available Not Available No t Available Vitals None Recorded Social History None recorded. Functional Status None recorded. Mental Status None recorded. Family History Nothing Reported. Medical History No medical history recorded. Gynecological HistoryNo gynecological history recorded. Obstetrics History GPAL:G 0 P 0 0 0 0 Past Encounters Encounter ID Performer Location Encounter Start Date Encounter Closed Date Diagnosis/Indication [id number] Chloe Ferreira MD Main Office [address] [address] 10/28/2020 10:19:24 10/28/2020 15:30:04 Cellulitis Squamous cell carcinoma of hand Actinic keratosis Health Concerns Section Related Observation LastModified by Organization Detai ls LastModified Time None Recorded Concern Status LastModified by Organization Details LastModified Time None Recorded Advance Directives Directive None Recorded Payers Encounter Date Sequence Insurance Name Policy Number Policy Garcia Covered Member ID Garcia Member ID Guarantor Name 10/28/2020 1 [employer] - INDIVIDUAL AND FAMILY (HMO) Akanksha Araiza [id number] Akanksha [place] Notes Date Note Type Note Provider Name and Address Organization Details Recorded Time 10/28/2020 text/html HPI Notes: 55-year-old female presents with her sister for Mohs surgery of a biopsy-proven painful squamous cell carcinoma left lateral dorsal hand. She has several other lesions she would like evaluated on her legs today. Scaly area left pretibial leg slightly erythematous slightly scaly duration months. No prior treatments. Brown scaly stuck on lesion left popliteal fossa irritated with shaving. Diffuse pink scaly areas on the left leg. She is using Efudex once weekly notes her right leg is clearing well. Her past medical history, family history, and social history: Are unchanged in the interim since seeing her in [place]. Review systems: patient feels overall excellent health, weight stable, no issues with bleeding, clotting or healing. Chloe Ferreira MD [address] [place] [address],[address], [place], [address], [facility] 10/28/2020 15:29:59 OBGyn Episode No OBEpisode recorded.
--- OUTSIDE RECORDS SUMMARY | 2023-08-30 18:41 | XMS_ITS | Encounter Summary ---
Author Name Unknown Organization [place] Address [address] [place] [address] Care Team Providers Care Dance Instructor Name Role Phone Yuan Lira PA-C Primary Care Provider [phone] Encounter Details Date Type Department Care Team (Late st Contact Info) Description 10/08/2021 Documentation Only INTERFACED REPORT Unknown, Provider Social History Tobacco Use Types Packs/Day Years Used Date Smoking Tobacco: Every Day Alcohol Use Standard Drinks/Week Comments No 0 (1 standard drink = 0.6 oz pur e alcohol) Sex and Gender Information Value Date Recorded Sex Assigned at Not on file Gender Identity Not on file Sexual Orientation Not on file COVID-19 Exposure Response Date Recorded In the last month, have you been in contact with someone who was confirmed or suspected to have Coronavirus / COVID-19? 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 [address] [place] [address] PCP - General 10/08/21 documented as of this encounter
--- OUTSIDE RECORDS SUMMARY | 2023-08-30 18:41 | XMS_ITS | Clinical Summary ---
Author Name Unknown Organization [facility] Address [place], [place] [address] Care Team Providers Care Stove Fitter Name Role Phone Pcp, No Primary Care Provider Unavailabl e Allergies Active Allergy Reactions Criticality Noted Date Comments Hydrocodone-Acetaminophen Nausea Only 0 Morphine Vomiting 05/30/2006 Naproxen Other - Describe In Comment Field 10/01/2011 Severe gerd Penicillins Nausea And Vomiting High 01/08/2011 Swelling Medications Medication Sig Dispensed Refills Start Date End Date Status albuterol HFA (PRO-AIR,VENTOLIN, PROVENTIL) 90 mcg/actuation inhalerIndications :COPD exacerbation (HC) Inhale 2 Puffs by mouth every 4 hours if needed. Or any brand covered by insurance 1 Inhaler 2 12/23/2015 Active blood-glucose meter (CONTOUR METER)Indications: Diabetes type 2, controlled (HC) Dispense meter, test strips, lancets covered by pt ins. E11.9 NIDDM type II - Test 1 time/day 1 Kit 0 02/12/2016 Active gabapentin (NEURONTIN) 300 mg capsuleIndications :Carpal tunnel syndrome, unspecified laterality 1 TABLETS AT BEDTIME FOR HAND PAIN. 90 capsule 0 11/16/2016 Active acetaminophen-code ine, 300-30 mg, (TYLENOL #3) tabletIndications: Midline low back pain without sciatica, unspecified chronicity Take 1 tablet by mouth every 4 hours if needed. Max acetaminophen dose: 4000mg in 24 hrs. 30 tablet 0 11/27/2016 Active citalopram (CELEXA) 20 mg tabletIndications: Anxiety Take 1 tablet by mouth once daily. 90 tablet 1 03/11/2017 Active hydroCHLOROthiazid e 50 mg tabletIndications: Essential hypertension Take 1 tablet by mouth once daily. 90 tablet 3 03/11/2017 Active levothyroxine (SYNTHROID) 75 mcg tabletIndications: Hypothyroidism, unspecified type Take 1 tablet by mouth once daily. 90 tablet 1 03/12/2017 Active hydrOXYzine pamoate (VISTARIL) 25 mg capsuleIndications :Depression with anxiety TAKE ONE CAPSULE BY MOUTH THREE TIMES DAILY NEEDED FOR ANXIETY 90 capsule 0 07/26/2017 Active LORazepam (ATIVAN) 0.5 mg tabIndications:Sit uational anxiety Take 1 tablet by mouth 2 times daily if needed for Anxiety. For panic attack. 12 tablet 0 07/26/2017 Active metFORMIN (GLUCOPHAGE XR) 500 mg Extended-Release tablet Take 2,000 mg by mouth two times daily with meals. 0 Active glipiZIDE (GLUCOTROL) 10 mg tablet Take 10 mg by mouth two times daily before meals. 0 12/03/2022 Active Active Problems Problem Noted Date Diagnosed Date Squamous cell carcinoma in situ of skin 02/24/20 16 Hypothyroidism 01/20/2016 Diabetes type 2, controlled 01/20/2016 Dyslipidemia 01/16/2016 Hypertriglyceridemia 01/16/2016 Carpal tunnel syndrome on both sides 10/31/2014 Overview: Carpal Tunnel Syndrome cortisone injections with good but temporary relief: 04/2014 and 07/2014. November 2014: EMG at [facility], showed Moderate right and mild left Carpal Tunnel Syndrome changes. Depression with anxiety 07/07/2012 Rotator cuff tendonitis 08/25/2011 Overview: R - work injury 07/14/11 Shoulder bursitis 08/25/2011 Overview: R - work injury 07/14/11 Carcinoma in situ of cervix uteri 11/15/2006 Allergic rhinitis, cause unspecified 05/30/2006 Anorexia 05/30/2006 Unspecified essential hypertension 05/30/2006 Nausea alone 05/30/2006 Overview: chronic Tobacco use disorder 05/30/2006 Esophageal reflux Resolved Problems Problem Noted Date Diagnosed Date Resolved Date Prediabetes 07/29/2012 02/12/2016 HTN (hypertension) 05/23/2012 2 Anxiety state, unspecified 05/30/2006 1 09/25/2011 Immunizations Name Administration Dates Next Due Influenza, IIV4 07/07/2016 Td (Age >=7 Years) 11/25/2004,07/11/2004 Tdap 03/11/2015 Family History Medical History Relation Name Comments Diabetes Brother Diabetes Father Other Father glaucoma Heart Disease Maternal Aunt 2 Cancer-breast Maternal Grandmother 50's Heart Disease Maternal Grandmother Diabetes Mother Heart Disease Mother Cancer-breast Paternal Grandmother 50's Diabetes Sister and cervical CA Relation Name Status Comments Brother Father (Age 75) diabetes c omplications Maternal Aunt 1 Maternal Aunt 2 Maternal Grandmother Mother (Age 63) think GA? Paternal Grandmother Sister Social History Tobacco Use Types Packs/Day Years Used Date Smoking Tobacco: Every Day Cigarettes 0.3 20 Smokeless Tobacco: Never Tobacco Cessation:Ready to Q uit: No; Counseling Given: Yes Comments:about 10 cigs per day Alcohol Use Standard Drinks/Week Comments No 0 (1 standard drink = 0.6 oz pur e alcohol) Sex and Gender Information Value Date Recorded Sex Assigned at Not on file Gender Identity Not on file Sexual Orientation Not on file Obstetrics History Para Term AB IAB SAB Ectopic Multiple Livin g Live Births 3 2 1 1 1 Date Outcome GA Total Labor Labor/2nd/3rd Weight Sex Delivery Anes PTL Maris A1 A5 Name Cl in IAB SAB Last Filed Vital Signs Vital Sign Reading Time Taken Comments Blood Pressure 129/70 02/12/2023 12:00 PM CDT Pulse 91 02/12/2023 12:00 PM CDT Temperature 36.7 ??C (98.1 ??F) 02/12/2023 10:34 AM C DT Respiratory Rate 16 02/12/2023 10:45 AM CDT Oxygen Saturation 94% 02/12/2023 12:00 PM CDT Inhaled Oxygen Concentration - - Weight 64.4 kg (142 lb) 02/12/2023 7:00 AM CDT Height 157.5 cm (5' 2) 02/12/2023 7:00 AM CDT Body Mass Index 25.97 02/12/2023 7:00 AM CDT Plan of Treatment Health Maintenance Due Date Last Done Comments COVID-19 vaccine series (#1) 01/31/1966 Mammogram for age 45-75 09/18/2011 09/18/2010, 05/16 Zoster (shingles) series for age 50+ (1 of 2) 2015 Fecal testing non-DNA (FIT,FOBT,iFOBT) for age 45-75 02/11/2017 02/12/2016 Depression screening for age 12+ 11/27/2017 11/27/2016, 10/22/2016, 07/07/2016, Additional history exists BMI (ht and wt on same day) for age 18+ 03/11/2018 03/11/2017, 10/19/2016, 02/12/2016, Additional history exists Pap test for age 21-65 02/11/2019 6, 03/31/2012, 10/14/2009, Additional history exists Lipids for age 45-75 01/16/2021 01/17/2016, 12/02/2015, 12/02/2015, Additional history exists Influenza for age 50-64 04/09/2023 07/07/2016 Tetanus booster 03/11/2025 03/11/2015, 11/07, 07/11/2004 HIV for age 15-65 Completed 03/31/2012 Hepatitis C screening for age 18-79 Completed 03/31/2012 Tdap Completed 03/11/2015 Pneumococcal series for age 6-64 Aged Out No longer eligible based on patient's age to complete this topic Care Teams Stove Fitter Relationship Specialty Start Date End Date Pcp, No . PCP - General 08/24/19
--- OUTSIDE RECORDS SUMMARY | 2023-08-30 18:41 | XMS_ITS | Referral Summary ---
Author Name Unknown Organization [place] Address [address] [place] [address] Care Team Providers Care House Manager Name Role Phone Yuan Lira PA-C Primary Care Provider [phone] Allergies Active Allergy Reactions Criticality Noted Date Comments Morphine Sulfate 07/31/2012 Penicillins 07/31/2012 Medications Medication Sig Dispensed Refills Start Date End Date Status HYDROCHLOROTHIAZIDE PO Take by mouth. 0 Active FLUoxetine HCl (PROZAC PO) Take by mouth. 0 Active VITAMIN D, CHOLECALCIFEROL, PO Take by mouth daily. 0 Active Cyanocobalamin (VITAMIN B 12 PO) Take by mouth. 0 Act ben oxyCODONE IR (ROXICODONE) 5 MG tablet Take 1-2 tablets (5-10 mg) by mouth every 6 hours as needed for moderate to severe pain 12 tablet 0 10/02/2017 Active ondansetron (ZOFRAN-ODT) 4 MG ODT tab Take 1 tablet (4 mg) by mouth every 8 hours as needed for nausea 5 tablet 0 10/02/2017 Active Resolved Problems Problem Noted Date Diagnosed Date Resolved Date Pain in joint, shoulder region 08/15/2012 11/23/2012 Stiffness of joint, not else where classified, shoulder region 08/15/2012 11/23/2012 Other postprocedural status(V45.89) 08/15/2012 11/23/2012 Disorder of bursae and tendo ns in shoulder region 09/07/2011 01/18/2012 Overview: Problem list name updated by automated process. Provider to review Rotator cuff (capsule) sprain 09/07/2011 01/18/2012 Pain in joint, shoulder region 09/07/2011 01/18/2012 Social History Tobacco Use Types Packs/Day Years Used Date Smoking Tobacco: Every Day Alcohol Use Standard Drinks/Week Comments No 0 (1 standard drink = 0.6 oz pur e alcohol) Adolescent Education Answer Date Record ed Getting School Help Needed Not on file 04/30 Sex and Gender Information Value Date Recorded Sex Assigned at Not on file Gender Identity Not on file Sexual Orientation Not on file Last Filed Vital Signs Vital Sign Reading Time Taken Comments Blood Pressure 113/67 10/08/2021 11:15 AM BREAK OUT MAN Pulse 69 10/08/2021 11:15 AM BREAK OUT MAN Temperature 36.9 ??C (98.4 ??F) 10/08/2021 9:25 AM CS T Respiratory Rate 18 10/08/2021 9:25 AM BREAK OUT MAN Oxygen Saturation 97% 10/08/2021 11: 15 AM BREAK OUT MAN Inhaled Oxygen Concentration - - Weight 74.8 kg (164 lb 14.5 oz) 022 10:08 AM BREAK OUT MAN Height 157.5 cm (5' 2) 10/02/2017 9:05 AM BREAK OUT MAN Body Mass Index 30.16 10/02/2017 9:05 AM BREAK OUT MAN Plan of Treatment Not on file Care Teams House Manager Relationship Specialty Start Date End Date Yuan Lira PA-C [place] [address] [place] [phone] PCP - General 10/08/21
--- OUTSIDE RECORDS SUMMARY | 2023-08-30 18:41 | XMS_ITS | Clinical Summary ---
Author Name Unknown Organization [facility] Address [address], [place] [address] Care Team Providers Care Chrome Plater Helper Name Role Phone No Primary/Referring, Phy Primary Care Provider Unavailable Source Comments You are receiving this document as you are listed as the primary care provider,follow-up provider, or the patient has been referred to you for consultation.This is in compliance with the Medicare andSelect Medical [facility] Hospital[facility] EHR Incentive Program,which states Providers who transition their patient to another setting of careor provider of care or refers their patient to another provider of care shouldprovide summary care record for each transition of care or referral. [facility] All[facility] Active Allergy Reactions Criticality Noted Date Comments Morphine Gastrointestinal 06/29/2018 Penicillins Other, see comments 06/29/2018 Mouth and jaw swelling Medications Medication Sig Dispensed Refills Start Date End Date Status hydroCHLOROthiazide (ORETIC) 50 MG tablet Take 50 mg by mouth daily. 0 Active levothyroxine (SYNTHROID) 50 MCG tablet Take 50 mcg by mouth daily. 0 Active escitalopram oxalate (LEXAPRO) 20 MG tablet Take 20 mg by mouth daily. 0 Active metFORMIN (GLUCOPHAGE) 500 MG tablet Take 500 mg by mouth daily with breakfast. 0 Active azithromycin (ZITHROMAX) 250 MG tabletIndications:Pn eumonia Take by mouth. Take two tablets on the first day, and take one tablet each day on days 2-5 Indications: Pneumonia 6 Tablet 0 06/29/2018 Active Social History Tobacco Use Types Packs/Day Years Used Date Smoking Tobacco: Every Day Smokeless Tobacco: Never Sex and Gender Information Value Date Recorded Sex Assigned at Not on file Gender Identity Not on file Sexual Orientation Not on file Last Filed Vital Signs Vital Sign Reading Time Taken Comments Blood Pressure 143/91 06/29/2018 12:43 PM HAND BUFFER Pulse 79 06/29/2018 12:43 PM HAND BUFFER Temperature 36.9 ??C (98.4 ??F) 06/29/2018 12:[address] Respiratory Rate 20 06/29/2018 12:43 PM HAND BUFFER Oxygen Saturation 96% 06/29/2018 12:43 PM HAND BUFFER Inhaled Oxygen Concentration - - Weight 73 kg (161 lb) 06/29/2018 12:43 PM HAND BUFFER Height 160 cm (5' 3) 06/29/2018 12:43 PM HAND BUFFER Body Mass Index 28.52 06/29/2018 12:43 PM HAND BUFFER Plan of Treatment Health Maintenance Due Date Last Done Comments Cervical Cancer Screening Due 1965 Colon Cancer Screening Plan Due 1965 Hep C Screening (Preventive Services) 1965 HepB (1) 1965 Mammogram 1965 COVID-19 Vaccine (#1) 01/31/1966 HIV Screening (Preventive Services) 1981 Adult Preventive Visit 1983 Cholesterol 2010 Zoster/Shingles (1 of 2) 2015 Influenza (#1) 2023 07/07/2016 DTaP/Tdap/Td (2 - Tdap) 03/11/2025 03/11/20 15, 11/25/2004, 07/11/2004 HepA Aged Out No longer eligi ble based on patient's age to complete this topic Hib Aged Out No longer eligi ble based on patient's age to complete this topic IPV (Polio) Aged Out No longer eligi ble based on patient's age to complete this topic MCV4 Aged Out No longer eligi ble based on patient's age to complete this topic Pneumococcal Aged Out No longer eligi ble based on patient's age to complete this topic Care Teams Chrome Plater Helper Relationship Specialty Start Date End Date No Primary/Referring, Erviny PCP - General 06/29/18
--- OUTSIDE RECORDS SUMMARY | 2023-08-30 18:41 | XMS_ITS | Clinical Summary ---
Author Name Unknown Organization [facility] Address [address] [place] [address] Care Team Providers Care Food Crops Farm Hand Name Role Phone Yuan Lira PA-C Primary Care Provider [phone] Allergies Active Allergy Reactions Criticality Noted Date [...] Comments Blood Pressure 113/67 10/08/2021 11:15 AM STRIPER SPRAY GUN Pulse 69 10/08/2021 11:15 AM STRIPER SPRAY GUN Temperature 36.9 ??C (98.4 ??F) 10/08/2021 9:25 AM CS T Respiratory Rate 18 10/08/2021 9:25 AM STRIPER SPRAY GUN Oxygen Saturation 97% 10/08/2021 11: 15 AM STRIPER SPRAY GUN Inhaled Oxygen Concentration - - Weight 74.8 kg (164 lb 14.5 oz) 022 10:08 AM STRIPER SPRAY GUN Height 157.5 cm (5' 2) 10/02/2017 9:05 AM STRIPER SPRAY GUN Body Mass Index 30.16 10/02/2017 9:05 AM STRIPER SPRAY GUN Plan of Treatment Health Maintenance Due Date Last Done Comments ADVANCE CARE PLANNING 1965 ANNUAL REVIEW OF HM ORDERS 1965 CT COLONOGRAPHY 1965 FIT 1965 FLEX SIG 1965 HEPATITIS B IMMUNIZATION (1 of 3 - 3-dose series) 1965 MAMMO SCREENING 1965 YEARLY PREVENTIVE VISIT 1965 sDNA (Cologuard) 1965 COVID-19 Vaccine (#1) 01/31/1966 Pneumococcal Vaccine: Pediatrics (0 to 5 Years) and At-Risk Patients (6 to 64 Years) (1 of 2 - PCV) 1971 COLONOSCOPY 1975 COLORECTAL CANCER SCREENING 1975 HIV SCREENING 1980 HEPATITIS C SCREENING 1983 PAP 1986 LIPID 2010 LUNG CANCER SCREENING 2015 ZOSTER IMMUNIZATION (1 of 2) 2015 INFLUENZA VACCINE (#1) 2023 07/07/2016 PHQ-2 (once per calendar year) 2023 DTAP/TDAP/TD IMMUNIZATION (2 - Td or Tdap) 03/11/2025 03/11/2015, 11/25/2004, 07/11/2004 HPV IMMUNIZATION Aged Out No longer e ligible based on patient's age to complete this topic IPV IMMUNIZATION Aged Out No longer e ligible based on patient's age to complete this topic MENINGITIS IMMUNIZATION Aged Out No l onger eligible based on patient's age to complete this topic RSV MONOCLONAL ANTIBODY Aged Out No l onger eligible based on patient's age to complete this topic Care Teams Food Crops Farm Hand Relationship Specialty Start Date End Date Yuan Lira PA-C [facility] [address] [place], [place] [phone] PCP - General 10/08/21
[2023-08-30] MEDS: ONDANSETRON 2 MG/ML inj 4 MG IVP (19:18)
[2023-08-30 19:29] LABS: Albumin* 4.6 g/dL (3.3-5.0); Basophils Percent Auto 0.4 % (0.0-3.0); Chloride* 100 mmol/L (96-114); Hematocrit 46.9 % (33.0-51.0); Hemoglobin* 16.8 gm/dL (12.0-16.0); Immature Granulocytes Pct Auto 0.3 %; Mean Corpuscular HGB Conc 36 gm/dL (32-36); Mean Corpuscular Hemoglobin 33 pg (26-34); Mean Corpuscular Volume 91 fL (80-100); Neutrophils Percent Auto 33.3 % (42.0-72.0); Platelet Count* 258 K/uL (140-440); RDW Coefficient of Variation % 11.5 % (11.5-15.5); Red Blood Count 5.15 m/uL (4.00-5.20); White Blood Count* 11.39 K/uL (4.50-11.00)
[2023-08-30 19:30] LABS: Potassium* 3.5 mmol/L (3.6-5.1); Sodium* 137 mmol/L (135-149)
[2023-08-30 19:31] LABS: Creatinine* 0.8 mg/dL (0.5-1.5); Est. Creatinine Clearance* 60.62; Estimated Glomerular Filt Rate 85 ml/min
[2023-08-30 19:32] LABS: Alkaline Phosphatase* 78 U/L (40-150); Anion Gap 10 mEq/L (7-15); Aspartate Amino Transferase* 53 U/L (12-35); Bilirubin Direct* 0.2 mg/dL (0.0-0.5); Bilirubin Total* 0.4 mg/dL (0.1-1.5); Blood Urea Nitrogen* 18 mg/dL (7-30); Carbon Dioxide* 27 mmol/L (20-32); Total Protein* 8.2 g/dL (6.0-8.3)
[2023-08-30 19:33] LABS: Alanine Aminotransferase* 71 U/L (4-35); Calcium* 9.5 mg/dL (8.4-10.6); Creatine Kinase* 88 U/L (41-117); Glucose* 280 mg/dL (60-115); Lipase* 286 U/L (23-300)
[2023-08-30 19:35] LABS: C Reactive Protein* 0.5 mg/dL (0.5-1.0)
[2023-08-30 19:51] LABS: Slide Review Reflex Yes
[2023-08-30 19:52] LABS: Slide Review Acceptable Review (Acceptable)
[2023-08-30] MEDS: PROMETHAZINE 25 MG/ML INJ 12.5 MG IVP (19:57)
[2023-08-30 19:59] LABS: Appearance Urine Clear (Clear); Bilirubin Urine Negative (Negative); Blood Urine Negative (Negative); Color Urine Yellow (Yellow); Glucose Urine 1+ (Negative); Ketones Urine Negative (Negative); Leukocyte Esterase Urine Negative (Negative); Nitrite Urine Negative (Negative); Protein Urine Negative (Negative); Specific Gravity Urine 1.025 (1.000-1.030); Urobilinogen Urine 0.2 (0.2-1.0); pH Urine 6.5 (5.0-8.5)
[2023-08-30 20:11] VITALS: BP 113/73; PULSE 74; RESP 18; O2SAT 94
--- NOTE | 2023-08-30 20:11 | ED.NURSE ---
Pt report given to onchannah RN
[2023-08-30 20:17] LABS: RBC Urine 0-2 (0-2); WBC Urine 0-2 (0-5)
[2023-08-30 20:18] LABS: Squamous Epithelial Cell Urine Few (None-Few)
== END 2023-08-30 20:22 | disposition home or self-care (01) ==
PROVIDERS: Emergency Provider Family Medicine; PCP Physician Assistant Medical
DX: R10.11 Right upper quadrant pain (principal); K75.81 Nonalcoholic steatohepatitis (NASH)
CPT/HCPCS: 36415; 76705; 80048; 80076; 81001; 82550; 83690; 85025; 86140; 87493; 96361; 96374; 96375; 99284; J2405; J2550; J7030

== ENCOUNTER 2023-10-25 13:29 | Outpatient (CLI) | payer BC, SELFPAY ==
--- NOTE | 2023-10-25 14:00 | CT_ITS ---
Patient: DOROTHY RUTLEDGE Facility:?[facility] Patient ID:?[id number] Site Patient ID:?[id number]. Site :?[id number] Study:?CT-Abdomen/Pelvis W/ 72CC ISOVUE 370-10/25/2023 3:01:01 PM Ordering Physician:MARYSE RILEY Final Report: Indication: RIGHT LOWER QUADRANT PAIN HX OF NON Alcoholic Steatohepatitis Technique: CT Abdomen/Pelvis W/ 72CC ISOVUE 370Add TF Please note that all CT scans at this facility use dose modulation, iterative reconstruction, and/or weight-based dosing when appropriate to reduce radiation dose to as low as reasonably achievable. Comparison: 04/09/2023 Findings: Lung bases are clear. Diffuse low-attenuation of the hepatic parenchyma. Liver measures 16.2 cm. No intrahepatic mass. Gallbladder normal. Normal pancreas and spleen. The adrenal glands are within normal limits. Normal kidneys. No hiatal hernia. The bladder is incompletely distended. No pelvic mass. Postop changes hysterectomy. Ovaries are unremarkable and unchanged. Normal appendix. No bowel obstruction, free air, free fluid or abscess. No enlarged lymph nodes within the abdomen or pelvis. Degenerative disc disease L4-5 with discogenic sclerosis and vacuum disc phenomenon. No vertebral body compression fracture. Atherosclerotic changes noted without aneurysm. Incidental bone island within the right posterior iliac bone. Spurring at the iliac crests. Mild degenerative joint disease of both hips. Normal patency of the main portal vein. Impression: Diffuse hepatic steatosis without intrahepatic mass or ascites. Normal appendix. No bowel obstruction or inflammatory change. Please note that all CT scans at this facility use dose modulation, iterative reconstruction, and/or weight-based dosing when appropriate to reduce radiation dose to as low as reasonably achievable. Dictated by Anil Murphy MD @ 10/26/2023 11:46:20 AM Signed by:?Anil Murphy MD @10/26/2023 11:46:20 AM (Electronic Signature)
[2023-10-25 14:08] LABS: Creatinine* 0.7 mg/dL (0.5-1.5); Estimated Glomerular Filt Rate 100 ml/min
== END 2023-10-25 13:30 | disposition home or self-care (01) ==
LOC: CT 13:30
PROVIDERS: PCP Physician Assistant Medical; Visit Provider Physician Assistant
DX: K75.81 Nonalcoholic steatohepatitis (NASH) (principal); K76.0 Fatty (change of) liver, not elsewhere classified; R10.31 Right lower quadrant pain; R53.83 Other fatigue; R68.81 Early satiety
CPT/HCPCS: 36415; 74177; 82565; Q9967

== ENCOUNTER 2024-01-22 06:54 | Emergency (ER) | payer BC, SELFPAY ==
[2024-01-22 07:02] VITALS: BP 119/71; PULSE 96; RESP 18; TEMP 35.9; O2SAT 92; BMI 26.2
--- NOTE | 2024-01-22 07:24 | ED.GENADULT ---
HPI - General Adult General Chief complaint: Dental/Oral/Mouth Injury/Pain Stated complaint: tooth infection Time Seen by Provider: 01/22/24 07:24 History of Present Illness HPI narrative: comes to ed with concerns of an infection of the upper gum-my teeth are rotting. has numerous health issues and has taken old doxycycline at home- had 8 doses (old rx) . feels that the infection is going up to her nostrils. has had low grade temp 99.6 -had chills. this started on Wednesday. 58-year-old woman presenting to the emergency department with concern of a tooth infection. She has been taking an old prescription of doxycycline. She has pain up into the upper right face. She is worried that an infection is tracking up here. Has had some chills mildly elevated temperature. No drainage from any tooth. Historically bad dentition. Also has a sore on her left lower leg that has developed after suture removal following excision of suspected skin cancer; I believe squamous cell. This wound has been present for quite some time. She has been treating it with hydrogen peroxide. There has been some drainage. Is not having significant pain here. Related Data Home Medications ?Medication ?Instructions ?Recorded ?Confirmed Diabetic Test Strips 02/17/22 12/01/23 blood-glucose meter (Accu-Chek 02/17/22 12/01/23 Guide Glucose Meter) fluorouracil 5 % topical cream 5 applic topical DIRECTED 02/17/22 12/01/23 dimenhydrinate 50 mg tablet 50 mg PO Q4-6H PRN 12/01/23 12/01/23 (Dramamine) Previous Rx's ?Medication ?Instructions ?Recorded albuterol sulfate 90 mcg/actuation 2 puff inhalation Q4-6H PRN 11/26/22 aerosol inhaler shortness of breath or wheezing #8.5 grams hydrochlorothiazide 50 mg tablet 50 mg PO DAILY #90 tabs 03/12/23 citalopram 20 mg tablet See Rx Instructions .Route 05/18/23 .COMPLEX #90 tabs ondansetron 4 mg disintegrating 4 mg PO Q4-6H PRN nausea and 08/30/23 tablet vomiting #12 tabs hydroxyzine pamoate 25 mg capsule 25 mg PO TID PRN anxiety #90 caps 10/01/23 lorazepam 0.5 mg tablet 0.5 mg PO .Daily as needed PRN 10/01/23 fear of flying #10 tabs blood-glucose sensor (Dexcom G7 #1 ea 10/19/23 Sensor device) metformin 500 mg tablet,extended 2,000 mg (4 x 500 mg) PO QDAY 90 12/01/23 release 24 hr days #360 tabs gabapentin 300 mg capsule 300 mg PO TID 90 days #270 caps 12/08/23 levothyroxine 100 mcg tablet 100 mcg PO QDAY #45 tabs 12/08/23 levothyroxine 88 mcg tablet 88 mcg PO .qod #45 tabs 12/08/23 chlorhexidine gluconate 0.12 % 15 ml mucous membrane BID #1,893 mL 01/22/24 mouthwash clindamycin HCl 300 mg capsule 300 mg PO QID 8 days #32 caps 01/22/24 glipizide 10 mg tablet, extended 10 mg PO BID #180 tabs 02/01/24 release 24 hr Allergies Allergy/AdvReac Type Severity Reaction Status Date / Time Penicillins Allergy Mild Swelling Verified 12/01/23 12:32 of Lip/Tongue/Throat hydrocodone Allergy Verified 12/01/23 12:32 semaglutide [From Ozempic] AdvReac Severe nausea, Verified 12/01/23 12:32 vomiting, morphine AdvReac Mild Vomiting Verified 12/01/23 12:32 naproxen AdvReac Mild skin Verified 12/01/23 12:32 crawling acetaminophen AdvReac Heartburn Verified 12/01/23 12:32 Review of Systems Status of ROS: Reports: 6 or more systems reviewed and unremarkable except as noted in History and below [facility] Medical History Dental caries ?K02.9 - Dental caries, unspecified (ICD-10) Seasonal allergic rhinitis ?J30.2 - Other seasonal allergic rhinitis (ICD-10) Malignant neoplasm of cervix ?C53.9 - Malignant neoplasm of cervix uteri, unspecified (ICD-10) 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 - Epidermal thickening, unspecified (ICD-10) History of squamous cell carcinoma in situ (SCCIS) of skin ?Z86.007 - Personal history of in-situ neoplasm of skin (ICD-10) History of malignant neoplasm of cervix ?Z85.41 - Personal history of malignant neoplasm of cervix uteri (ICD-10) History of eating disorder ?Z86.59 - Personal history of other mental and behavioral disorders (ICD-10) History of bladder stone ?Z87.448 - Personal history of other diseases of urinary system (ICD-10) Surgical History History of liver biopsy ?Z98.890 - Other specified postprocedural states (ICD-10) History of bladder repair surgery ?Z98.890 - Other specified postprocedural states (ICD-10) History of shoulder surgery ?Z98.890 - Other specified postprocedural states (ICD-10) History of hysterectomy ?Z90.710 - Acquired absence of both cervix and uterus (ICD-10) History of carpal tunnel release of both wrists ?Z98.890 - Other specified postprocedural states (ICD-10) History of bladder surgery ?Z98.890 - Other specified postprocedural states (ICD-10) Family History Mother Diabetes Sudden cardiac , Onset Age: 62 Father Diabetes Sister Diabetes Brother Diabetes Paternal Grandfather Diabetes Paternal Grandmother Diabetes Social History Narrative: Smoker Does not drink alcohol Does not use illicit drugs Smoking Status: Current every day smoker What tobacco products do you use: cigarettes Smoking packs per day: 0.5 Smoking cigarettes per day: 10.0 Do you use any of these nicotine containing products: None How often do you have a drink containing alcohol: never How often do you have six or more drinks on one occasion: Never AUDIT-C Alcohol total score: 0 Non-prescribed substance use: denies use Little interest or pleasure in doing things: several days Feeling down, depressed, or hopeless: several days service: No Exam Narrative: Exam Narrative: Pleasant. Appears little uncomfortable. Breathing easily. Lungs appear to be clear. Heart in elevated rate but regular rhythm I do not see any facial swelling or erythema. There is not particular tenderness reproducible to palpation of the face. Oropharynx with inflamed gingiva consistent with gingivitis. Various teeth are decayed or broken. There is broken tooth I believe 6 or 7 that she would quite with the potential problem. Lower extremities with tattoos. No edema. The wound in question is about 3 cm in maximal size it is an oval on the lower outer leg. Serosanguineous light drainage present. I do not see significant surrounding induration or erythema or calor. Const: Vital Signs, click to edit/add: Vital Signs - 24 hr 01/22/24 07:02 Temperature 96.7 F L Pulse Rate [Pulse Oximeter] 96 Respiratory Rate 18 Blood Pressure [Ri ght Upper Arm] 119/71 Pulse Oximetry 92 Oxygen Delivery Me thod Room Air Documenting provider has reviewed patient's vital signs: yes Course Vital Signs Vital signs: Initial Vital Signs Temperature 96.7 F L 01/22/24 07:02 Temperature Source Temporal Artery Scan 01/22/24 07:02 Pulse Rate 96 01/22/24 07:02 Pulse Rhythm Regular 01/22/24 07:02 Respiratory Rate 18 01/22/24 07:02 Blood Pressure 119/71 01/22/24 07:02 Blood Pressure Mean 87 01/22/24 07:02 Blood Pressure Position Supine 01/22/24 07:02 Pulse Oximetry 92 01/22/24 07:02 Oxygen Delivery Method Room Air 01/22/24 07:02 Vital Signs Temperature 96.7 F L 01/22/24 07:02 Pulse Rate 96 01/22/24 07:02 Respiratory Rate 18 01/22/24 07:02 Blood Pressure 119/71 01/22/24 07:02 Pulse Oximetry 92 01/22/24 07:02 Oxygen Delivery Method Room Air 01/22/24 07:02 Temperature 96.7 F L 01/22/24 07:02 Pulse Rate 96 01/22/24 07:02 Respiratory Rate 18 01/22/24 07:02 Blood Pressure 119/71 01/22/24 07:02 Pulse Oximetry 92 01/22/24 07:02 Oxygen Delivery Method Room Air 01/22/24 07:02 Medical Decision Making MDM Narrative Medical decision making narrative: I doubt that this wound is the source of the chills and potential infection. Possibly secondary viral process. Dentition is clearly bothering her and might certainly have an apical abscess. We discussed potential imaging though I do not think has a loculated sinus infection. With a history of diabetes however I would be concerned about evolving infection. I think at this point might be prudent to initiate clindamycin. Concerned though would be potential C diff colitis. Ms. [place] is familiar with clindamycin; I think this would be a better oral drug. With history of diabetes and the gingivitis present I think an oral antibacterial rinse would be a good idea. Prescribing a chlorhexidine gluconate. I would also like follow-up with wound clinic. Sounds like puzzling or limited advice to date and is delaying healing with application of hydrogen peroxide to the wound. Would like her to follow-up with wound clinic locally as it might be more convenient as well. Does have peripheral neuropathy. See patient discharge plan for further discussion Medical Records Medical records reviewed: Yes I reviewed the patient's medical records Discharge Plan Discharge Clinical Impression: Dental decay, Dental infection, Gingivitis, Open wound Patient Disposition: Home w/ Parent or Adult Condition: Stable Additional Instructions: Yes. I do have concerns that the use of hydrogen peroxide is slowing your wound healing. Would discuss that further with your registered physical therapist. Partly out of convenience, there is a wound care center here at the [facility] that you might consider attending. Prescriptions: New chlorhexidine gluconate 0.12 % mouthwash 15 ml mucous membrane BID Qty: 1893 0RF clindamycin HCl 300 mg capsule 300 mg PO QID 8 Days Qty: 32 0RF No Action hydroxyzine pamoate 25 mg capsule 25 mg PO TID PRN (Reason: anxiety) Qty: 90 3RF lorazepam 0.5 mg tablet 0.5 mg PO .Daily as needed PRN (Reason: fear of flying) Qty: 10 0RF Rx Instructions: 1 po 30 minutes prior to flying for anxiety. (DME) Dexcom G7 Sensor Device See Rx Instructions .Route Qty: 1 11RF Rx Instructions: As directed dimenhydrinate [Dramamine] 50 mg tablet 50 mg PO Q4-6H PRN (DME) blood-glucose meter [Accu-Chek Guide Glucose Meter] Misc See Rx Instructions .Route Rx Instructions: As directed (DME) Diabetic Test Strips Misc See Rx Instructions .Route Rx Instructions: As directed fluorouracil 5 % cream 5 applic topical DIRECTED Rx Instructions: Apply topically to affected area one day every week. albuterol sulfate 90 mcg/actuation HFA aerosol inhaler 2 puff inhalation Q4-6H PRN (Reason: shortness of breath or wheezing) Qty: 8.5 0RF citalopram 20 mg tablet See Rx Instructions .ROUTE .COMPLEX Qty: 90 3RF Dose Instruction: TAKE 1 TABLET BY MOUTH DAILY Rx Instructions: TAKE 1 TABLET BY MOUTH DAILY metformin 500 mg tablet extended release 24 hr 2,000 mg PO QDAY 90 Days Qty: 360 1RF ondansetron 4 mg tablet,disintegrating 4 mg PO Q4-6H PRN (Reason: nausea and vomiting) Qty: 12 0RF hydrochlorothiazide 50 mg tablet 50 mg PO DAILY Qty: 90 3RF gabapentin 300 mg capsule 300 mg PO TID 90 Days Qty: 270 3RF levothyroxine 100 mcg tablet 100 mcg PO QDAY Qty: 45 0RF Rx Instructions: Alternate every other day with 88mcg and 100mcg levothyroxine 88 mcg tablet 88 mcg PO .qod Qty: 45 0RF Rx Instructions: alternate with 100mcg levothyroxine glipizide 10 mg tablet extended release 24hr 10 mg PO BID Qty: 180 0RF Follow Up/Referrals: Yuan Lira PA-C [Primary Care Provider] - [facility]one [facility]
--- OUTSIDE RECORDS SUMMARY | 2024-01-22 08:03 | XMS_ITS | Clinical Summary ---
Author Organization [facility] Address [address] [place] [address] Care Team Providers Care Meter Reader Inspector Name Role Phone No Primary/Referring, Phy Primary Care Provider Unavailable Source Comments You are receiving this document as you are listed as the primary care provider,follow-up provider, or the patient has been referred to you for consultation.This is in compliance with the Medicare and[facility] EHR Incentive Program,which states Providers who transition their patient to another setting of careor provider of care or refers their patient to another provider of care shouldprovide summary care record for each transition of care or referral. [employer] Allergies Active Allergy Reactions Criticality Noted Date Comments Morphine Gastrointestinal 06/29/2018 Penicillins Other, see comments 06/29/2018 Mouth and jaw swelling Medications Medication Sig Dispensed Refills Start Date End Date Status hydroCHLOROthiazide (ORETIC) 50 MG tablet Take 50 mg by mouth daily. Active levothyroxine (SYNTHROID) 50 MCG tablet Take 50 mcg by mouth daily. Active escitalopram oxalate (LEXAPRO) 20 MG tablet Take 20 mg by mouth daily. Active metFORMIN (GLUCOPHAGE) 500 MG tablet Take 500 mg by mouth daily with breakfast. Active azithromycin (ZITHROMAX) 250 MG tabletIndications:Pn eumonia Take by mouth. Take two tablets on the first day, and take one tablet each day on days 2-5 Indications: Pneumonia 6 Tablet 06/29/2018 Active Social History Tobacco Use Types Packs/Day Years Used Date Smoking Tobacco: Every Day Smokeless Tobacco: Never Sex and Gender Information Value Date Recorded Sex Assigned at Not on file Gender Identity Not on file Sexual Orientation Not on file Last Filed Vital Signs Vital Sign Reading Time Taken Comments Blood Pressure 143/91 06/29/2018 12:43 PM BLACKENER Pulse 79 06/29/2018 12:43 PM BLACKENER Temperature 36.9 ??C (98.4 ??F) 06/29/2018 12:[address] Respiratory Rate 20 06/29/2018 12:43 PM BLACKENER Oxygen Saturation 96% 06/29/2018 12:43 PM BLACKENER Inhaled Oxygen Concentration - - Weight 73 kg (161 lb) 06/29/2018 12:43 PM BLACKENER Height 160 cm (5' 3) 06/29/2018 12:43 PM BL[facility]ENER Body Mass Index 28.52 06/29/2018 12:43 PM BLACKENER Plan of Treatment Health Maintenance Due Date Last Done Comments Cervical Cancer Screening Due 1965 Colon Cancer Screening Plan Due 1965 Hep C Screening (Preventive Services) 1965 Mammogram 1965 HIV Screening (Preventive Services) 1981 Adult Preventive Visit 1983 HepB (1) 1984 Cholesterol 2010 Zoster/Shingles (1 of 2) 2015 COVID-19 Vaccine (1 - 2022-2 4 season) 2023 Influenza (Season Ended) 2024 07/07/2016 DTaP/Tdap/Td (2 - Tdap) 03/11/2025 03/11/20 [...] age to complete this topic Care Teams Meter Reader Inspector Relationship Specialty Start Date End Date No Primary/Referring, Erviny PCP - General 06/29/18
--- OUTSIDE RECORDS SUMMARY | 2024-01-22 08:03 | XMS_ITS | Clinical Summary ---
Author Organization [facility] Address [address] [place] [address] Care Team Providers Care Paper Coating Supervisor Name Role Phone Yuan Lira PA-C Primary Care Provider [phone] Allergies Active Allergy Reactions Criticality Noted Date Comments Morphine Sulfate 07/31/2012 Penicillins 07/31/2012 Medications Medication Sig Dispensed Refills Start Date End Date Status HYDROCHLOROTHIAZIDE PO Take by mouth. Active FLUoxetine HCl (PROZAC PO) Take by mouth. Active VITAMIN D, CHOLECALCIFEROL, PO Take by mouth daily. Active Cyanocobalamin (VITAMIN B 12 PO) Take by mouth. Act ben oxyCODONE IR (ROXICODONE) 5 MG tablet Take 1-2 tablets (5-10 mg) by mouth every 6 hours as needed for moderate to severe pain 12 tablet 10/02/2017 Active ondansetron (ZOFRAN-ODT) 4 MG ODT tab Take 1 tablet (4 mg) by mouth every 8 hours as needed for nausea 5 tablet 10/02/2017 Active Resolved Problems Problem Noted Date [...] Comments Blood Pressure 113/67 10/08/2021 11:15 AM [employer]NAGER Pulse 69 10/08/2021 11:15 AM [employer] MANAGER Temperature 36.9 ??C (98.4 ??F) 10/08/2021 9:25 AM CS T Respiratory Rate 18 10/08/2021 9:25 AM [employer] MANAGER Oxygen Saturation 97% 10/08/2021 11: 15 AM [employer] MANAGER Inhaled Oxygen Concentration - - Weight 74.8 kg (164 lb 14.5 oz) 022 10:08 AM [employer] MANAGER Height 157.5 cm (5' 2) 10/02/2017 9:05 AM [employer] MANA[employer] Body Mass Index 30.16 10/02/2017 9:05 AM [employer] MANAGER Plan of Treatment Health Maintenance Due Date Last Done Comments ADVANCE CARE PLANNING 1965 ANNUAL REVIEW OF HM ORDERS 1965 CT COLONOGRAPHY 1965 FIT 1965 FLEX SIG 1965 MAMMO SCREENING 1965 YEARLY PREVENTIVE VISIT 1965 sDNA (Cologuard) 1965 Pneumococcal Vaccine: Pediatrics (0 to 5 Years) and At-Risk Patients (6 to 64 Years) (1 of 2 - PCV) 1971 COLONOSCOPY 1975 COLORECTAL CANCER SCREENING 1975 HIV SCREENING 1980 HEPATITIS C SCREENING 1983 HEPATITIS B IMMUNIZATION (1 of 3 - 19+ 3-dose series) 1984 PAP 1986 LIPID 2005 LUNG CANCER SCREENING 2015 ZOSTER IMMUNIZATION (1 of 2) 2015 GLUCOSE 10/02/2020 10/02/2017 COVID-19 Vaccine (1 - 2022-2 4 season) 2023 PHQ-2 (once per calendar year) 2023 INFLUENZA VACCINE (Season Ended) 2024 07/07/2016 DTAP/TDAP/TD IMMUNIZATION (2 - Td or Tdap) [...] on patient's age to complete this topic Procedures Procedure Name Priority Date/Time Associated Diagnosis Comments COMPREHENSIVE METABOLIC PANEL STAT 10/02/2017 8:50 AM [employer] MANAGER from Last 3 Months or Most Recently Relevant to Health Maintenance Results * (ABNORMAL) Comprehensive metabolic panel (10/02/2017 8:50 AM [employer] MANAGER) Sodium 138 133 - 144 mmol/L 10/02/2017 9:30 AM [facility] Potassium 3.3(L) 3.4 - 5.3 mmol/L 10/02/2017 9:30 AM [facility] Chloride 103 94 - 109 mmol/L 10/02/2017 9:30 AM [facility] Carbon Dioxide 31 20 - 32 mmol/L 10/02/2017 9:30 AM [facility] Anion Gap 4 3 - 14 mmol/L 10/02/2017 9:30 AM [facility] Glucose 82 70 - 99 mg/dL 10/02/2017 9:30 AM [facility] Urea Nitrogen 14 7 - 30 mg/dL 10/02/2017 9:30 AM [facility] Creatinine 0.79 0.52 - 1.04 mg/dL 10/02/2017 9:30 AM [facility] GFR Estimate 76 >60 mL/min/1.7 m2 10/02/2017 9:30 AM [facility] Comment:Non GFR Calc GFR Estimate If Black >90 >60 mL/min/1.7 m2 10/02/2017 9:30 AM [facility] Comment: GFR Calc Calcium 8.8 8.5 - 10.1 mg/dL 10/02/2017 9:30 AM [facility] Bilirubin Total 0.3 0.2 - 1.3 mg/dL 10/02/2017 9:30 AM [facility] Albumin 3.5 3.4 - 5.0 g/dL 10/02/2017 9:30 AM [facility] Protein Total 7.4 6.8 - 8.8 g/dL 10/02/2017 9:30 AM [facility] Alkaline Phosphatase 71 40 - 150 U/L 10/02/2017 9:30 AM [facility] ALT 54(H) 0 - 50 U/L 10/02/2017 9:30 AM [facility] AST 25 0 - 45 U/L 10/02/2017 9:30 AM [facility] Blood specimen (specimen) 10/02/2017 8:50 AM [employer] MANAGER 10/02/2017 9:08 AM [employer]CH MANAGER Chip Urbina MD LAB - BLOOD ORD ERABLES [facility] [address] [place] [address], [facility] [phone] from Last 3 Months or Most Recently Relevant to Health Maintenance Care Teams Paper Coating Supervisor Relationship Specialty Start Date End Date Yuan Lira PA-C [facility] [address] [place] [address] [place] [id number] PCP - General 10/08/21
--- OUTSIDE RECORDS SUMMARY | 2024-01-22 08:03 | XMS_ITS | Encounter Summary ---
Author Organization [place] Address [address] [place] [address] Care Team Providers Care Cad Developer Name Role Phone Yuan Lira PA-C Primary Care Provider [phone] Encounter Details Date Type Department Care Team [...] COVID-19? No / Unsure 10/08/2021 9:20 AM PILE TRIMMER documented as of this encounter Plan of Treatment Not on file documented as of this encounter Visit Diagnoses Not on filedocumented in this encounter Care Teams Cad Developer Relationship Specialty Start Date End Date Yuan Lira PA-C [facility] [address] [place] [id number] PCP - General 10/08/21 documented as of this encounter
--- OUTSIDE RECORDS SUMMARY | 2024-01-22 08:03 | XMS_ITS | Referral Summary ---
Author Organization [place] Address [address] [place] [address] Care Team Providers Care Instructor Technical Training Name Role Phone Yuan Lira PA-C Primary Care Provider [phone] Allergies Active Allergy Reactions Criticality Noted Date [...] Comments Blood Pressure 113/67 10/08/2021 11:15 AM MANAGER MARKET DEVELOPMENT Pulse 69 10/08/2021 11:15 AM MANAGER MARKET DEVELOPMENT Temperature 36.9 ??C (98.4 ??F) 10/08/2021 9:25 AM CS T Respiratory Rate 18 10/08/2021 9:25 AM MANAGER MARKET DEVELOPMENT Oxygen Saturation 97% 10/08/2021 11: 15 AM MANAGER MARKET DEVELOPMENT Inhaled Oxygen Concentration - - Weight 74.8 kg (164 lb 14.5 oz) 022 10:08 AM MANAGER MARKET DEVELOPMENT Height 157.5 cm (5' 2) 10/02/2017 9:05 AM MANAGER MARKET DEVELOPMENT Body Mass Index 30.16 10/02/2017 9:05 AM MANAGER MARKET DEVELOPMENT Plan of Treatment Not on file Procedures Procedure Name Priority Date/Time Associated Diagnosis Comments COMPREHENSIVE METABOLIC PANEL STAT 10/02/2017 8:50 AM MANAGER MARKET DEVELOPMENT from Last 3 Months or Most Recently Relevant to Health Maintenance Results * (ABNORMAL) Comprehensive metabolic panel (10/02/2017 8:50 AM MANAGER MARKET DEVELOPMENT) Sodium 138 133 - 144 mmol/L 10/02/2017 9:30 AM [facility] Potassium 3.3(L) 3.4 - 5.3 mmol/L 10/02/2017 9:30 AM [facility] Chloride 103 94 - 109 mmol/L 10/02/2017 9:30 AM [facility] Carbon Dioxide 31 20 - 32 mmol/L 10/02/2017 9:30 AM [facility] Anion Gap 4 3 - 14 mmol/L 10/02/2017 9:30 AM [facility] Glucose 82 70 - 99 mg/dL 10/02/2017 9:30 AM [facility] Urea Nitrogen 14 7 - 30 mg/dL 10/02/2017 9:30 AM [facility] Creatinine 0.79 0.52 - 1.04 mg/dL 10/02/2017 9:30 AM [facility] GFR Estimate 76 >60 mL/min/1.7 m2 10/02/2017 9:30 AM [facility] Comment:Non GFR Calc GFR Estimate If Black >90 >60 mL/min/1.7 m2 10/02/2017 9:30 AM [facility] Comment: GFR Calc Calcium 8.8 8.5 - 10.1 mg/dL 10/02/2017 9:30 AM [facility] Bilirubin Total 0.3 0.2 - 1.3 mg/dL 10/02/2017 9:30 AM [facility] Albumin 3.5 3.4 - 5.0 g/dL 10/02/2017 9:30 AM [facility] Protein Total 7.4 6.8 - 8.8 g/dL 10/02/2017 9:30 AM [facility] Alkaline Phosphatase 71 40 - 150 U/L 10/02/2017 9:30 AM [facility] ALT 54(H) 0 - 50 U/L 10/02/2017 9:30 AM [facility] AST 25 0 - 45 U/L 10/02/2017 9:30 AM [facility] Blood specimen (specimen) 10/02/2017 8:50 AM MANAGER MARKET DEVELOPMENT 10/02/2017 9:08 AM MANAGER MARKET DEVELOPMENT Chip Urbina MD LAB - BLOOD ORD ERABLES [facility] [address] [place] [address], [facility] [phone] from Last 3 Months or Most Recently Relevant to Health Maintenance Care Teams Instructor Technical Training Relationship Specialty Start Date End Date Yuan Lira PA-C [facility] & [address] [place], [place] [id number] PCP - General 10/08/21
--- OUTSIDE RECORDS SUMMARY | 2024-01-22 08:03 | XMS_ITS | Clinical Summary ---
Author Organization [email or web address] Address [place], [place] [address] Care Team Providers Care Lean Manufacturing Engineer Name Role Phone Pcp, No Primary Care [...] AT BEDTIME FOR HAND PAIN. 90 capsule 11/16/2016 Active acetaminophen-code ine, 300-30 mg, (TYLENOL #3) tabletIndications: Midline low back pain without sciatica, unspecified chronicity Take 1 tablet by mouth every 4 hours if needed. Max acetaminophen dose: 4000mg in 24 hrs. 30 tablet 11/27/2016 Active citalopram (CELEXA) 20 mg tabletIndications: [...] TIMES DAILY NEEDED FOR ANXIETY 90 capsule 07/26/2017 Active LORazepam (ATIVAN) 0.5 mg tabIndications:Sit uational anxiety Take 1 tablet by mouth 2 times daily if needed for Anxiety. For panic attack. 12 tablet 07/26/2017 Active metFORMIN (GLUCOPHAGE XR) 500 mg Extended-Release tablet Take 2,000 mg by mouth two times daily with meals. Active glipiZIDE (GLUCOTROL) 10 mg tablet Take 10 mg by mouth two times daily before meals. 12/03/2022 Active Active Problems Problem Noted Date Diagnosed Date Squamous cell carcinoma in situ of skin 02/24/20 16 Hypothyroidism 01/20/2016 Diabetes type 2, controlled 01/20/2016 Dyslipidemia 01/16/2016 Hypertriglyceridemia 01/16/2016 Carpal tunnel syndrome on both sides 10/31/2014 Overview: Carpal Tunnel Syndrome cortisone injections with good but temporary relief: 04/2014 and 07/2014. November 2014: EMG at [place], showed Moderate right and mild left Carpal [...] Date Prediabetes 07/29/2012 02/12/2016 HTN (hypertension) 05/23/2012 10/15/201 2 Anxiety state, unspecified 05/30/2006 1 09/25/2011 Encounters Date Type Department Care Team Description 11/29/2023 Orders Only [facility] Scanner 1 scan: (1-Ord) [facility] DERMAPATHOLOGY, SKIN BIOPSY RESULT, 11/29/2023 from Last 3 Months Immunizations Name Administration Dates Next Due Influenza, [...] 2 Maternal Grandmother Mother (Age 63) think [place]? Paternal Grandmother Sister Social History Tobacco Use [...] Outcome GA Total Labor Labor/2nd/3rd Weight Sex Type Anes PTL Maris A1 A5 Name Clin IAB SAB Last Filed Vital Signs Vital [...] Health Maintenance Due Date Last Done Comments Mammogram for age 45-75 09/18/2011 09/18/2010, 05/16 [...] 01/16/2021 01/17/2016, 12/02/2015, 12/02/2015, Additional history exists COVID-19 vaccine series (2022- season) 2023 Influenza for age 50-64 04/09/2024 07/07/2016 Tetanus booster 03/11/2025 03/11/2015, 11/07, 07/11/2004 HIV for age 15-65 Completed 03/31/2012 Hepatitis C screening for age 18-79 Completed 03/31/2012 Tdap Completed 03/11/2015 Pneumococcal series for age 6-64 Aged Out No longer eligible based on patient's age to complete this topic Procedures Procedure Name Priority Date/Time Associated Diagnosis Comments SCAN-PATHOLOGY REPORT 11/29/2023 12:00 AM CDT PRINCIPAL ENGINEER THIN PREP PAP DIAGNOSTIC IMAGED Routine 02/12/2016 11:48 AM CDT Carcinoma in situ of cervix uteri OCCULT BLOOD IFOBT STOOL Routine 02/12/2016 8:40 AM CDT Special screening for malignant neoplasm LIPID PANEL W REFLEX MEASURED LDL Routine 01/17/2016 7:24 AM CDT Elevated triglycerides with high cholesterol ANTI HIV 1/2 Routine 03/31/2012 3:19 PM CDT Screening for STD (sexually transmitted disease) ANTI HCV Routine 03/31/2012 3:19 PM CDT Screening for STD (sexually transmitted disease) XR MAMMO SCREENING BILATERAL (IA) Routine 09/18/2010 Other screening mammogram from Last 3 Months or Most Recently Relevant to Health Maintenance Results * SCAN-PATHOLOGY REPORT (11/29/2023 12:00 AM CDT) Scanner OTHER * PRINCIPAL ENGINEER THIN PREP PAP DIAGNOSTIC IMAGED (02/12/2016 11:48 AM CDT) PRINCIPAL ENGINEER CYTOLOGY See Anatomic Pathology case 02/13/2016 12:00 PM CDT [facility] LAB[facility] Other (Cervical) Non-Blood / Unknown 02/12/2016 11:48 AM CDT 02/12/2016 11:48 AM CDT Micaela Lainez DO PATHOLOGY/[facility]TOLOGY [facility] [address] [place] [address], [place] * OCCULT BLOOD IFOBT STOOL (02/12/2016 8:40 AM CDT) STOOL BLOOD ,IFOBT Negative Negative 02/12/2016 11:08 AM CDT [facility] Stool STOOL SPECIMEN / Unknown Non-Blood / Unknown 02/12/2016 8:40 AM CDT 02/12/2016 11:01 AM CDT Micaela Lainez DO LABORATORY [facility] [address] [place] [address], [place] [phone] * (ABNORMAL) LIPID PANEL W REFLEX MEASURED LDL (01/17/2016 7:24 AM CDT) CHOLESTEROL,TOTAL 242(H) 100 - 199 mg/dL 01/17/2016 4:59 PM CDT [facility] TRIGLYCERIDES 326(H) <150 mg/dL 01/17/2016 4:59 PM CDT [facility] HDL CHOLESTEROL 35(L) >40 mg/dL 01/17/2016 4:59 PM CDT [facility] NON-HDL CHOLESTEROL 207(H) <145 mg/dl 01/17/2016 4:59 PM CDT [facility] CHOL/HDL RATIO 6.91(H) <4.50 01/17/2016 4:59 PM CDT [facility] LDL CHOLESTEROL 142(H) <=130 mg/dL 01/17/2016 4:59 PM CDT [facility] PATIENT STATUS FASTING 01/17/2016 4:59 PM CDT [facility] Blood specimen (specimen) BLOOD SPECIMEN / Unknown Venipuncture / Unknown 01/17/2016 7:24 AM CDT 01/17/2016 7:25 AM CDT Saima Mayo MD CHEMISTRY [facility] [address] [place] [address], * ANTI HCV (03/31/2012 3:19 PM CDT) Pathologist [facility] ANTI HCV Non-reacti ve [facility] Blood specimen (specimen) BLOOD SPECIMEN / Unknown 03/31/2012 3:19 PM CDT 03/31/2012 3:18 PM CDT Cinthia Joya MD SEND OUTS [facility] LAB[facility]ORY INTERNAL ZIP [address] [place] [address] * ANTI HIV 1/2 (03/31/2012 3:19 PM CDT) Pathologist [facility] ANTI HIV 1/2 Non-reacti [facility] Blood specimen (specimen) BLOOD SPECIMEN / Unknown 03/31/2012 3:19 PM CDT 03/31/2012 3:18 PM CDT Cinthia Joya MD SEND OUTS [facility] INTERNAL ZIP [address] [address] [place] [address] * XR MAMMO SCREENING BILATERAL (09/18/2010) Anatomical Region Laterality Modality BREASTS, Breast Left, Breast Right Bilateral Other Cinthia Joya MD MAMMO from Last 3 Months or Most Recently Relevant to Health Maintenance Care Teams Lean Manufacturing Engineer Relationship Specialty Start Date End Date Pcp, No . PCP - General 08/24/19
--- OUTSIDE RECORDS SUMMARY | 2024-01-22 08:03 | XMS_ITS | Data Portability ---
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 Reviewed [...] offered reassurance. Follow-up in 15 days in [place]. Verbal, typewritten wound care instructions given. Cell phone number given [email or web address] Not available 10/28/2020 14:55:38 Plan of Treatment Reminders Order Date Submit Date Provider Last Modified By Organization Details Last Modified Time Details Appointments None recorded. Lab None recorded. Referral None recorded. Procedures None recorded. Surgeries None recorded. Imaging None recorded. Medication Orders doxycycline hyclate 100 mg capsule 2020 021 [id number] [facility] #[id number], [address] [place], [place], [id number], 15:28:55 Patient TargetsNo targets recorded. 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 Review systems: patient feels overall excellent health, weight stable, no issues with bleeding, clotting or healing. Chloe Ferreira MD [address] [place] [address],[facility], [place], [address], [facility] 10/28/2020 15:29:59 OBGyn Episode No OBEpisode recorded.
== END 2024-01-22 08:03 | disposition home or self-care (01) ==
LOC: ED 08:00
PROVIDERS: Emergency Provider Family Medicine; PCP Physician Assistant Medical
DX: K02.9 Dental caries, unspecified (principal); K05.10 Chronic gingivitis, plaque induced; S81.802A Unspecified open wound, left lower leg, initial encounter
CPT/HCPCS: 99284

== ENCOUNTER 2024-01-27 13:56 | Outpatient (CLI) | payer BC, SELFPAY ==
--- OUTSIDE RECORDS SUMMARY | 2024-01-27 13:59 | XMS_ITS | Clinical Summary ---
Author Organization [facility] Address [address] [place] [address] Care Team Providers Care Air Conditioning Insulation Installer Name Role Phone No Primary/Referring, Phy Primary Care Provider Unavailable Source Comments You are receiving this document as you are listed as the primary care provider,follow-up provider, or the patient has been referred to you for consultation.This is in compliance with the Medicare and[facility] EHR Incentive Program,which states Providers who transition their patient to another setting of careor provider of care or refers their patient to another provider of care shouldprovide summary care record for each transition of care or referral. [employer] Allergies Active Allergy Reactions Criticality Noted Date [...] Comments Blood Pressure 143/91 06/29/2018 12:43 PM SECURITY SYSTEMS ENGINEER Pulse 79 06/29/2018 12:43 PM SECURITY SYSTEMS ENGINEER Temperature 36.9 ??C (98.4 ??F) 06/29/2018 12:[address] Respiratory Rate 20 06/29/2018 12:43 PM SECURITY SYSTEMS ENGINEER Oxygen Saturation 96% 06/29/2018 12:43 PM SECURITY SYSTEMS ENGINEER Inhaled Oxygen Concentration - - Weight 73 kg (161 lb) 06/29/2018 12:43 PM SECURITY SYSTEMS ENGINEER Height 160 cm (5' 3) 06/29/2018 12:43 PM SECURITY SYSTEMS ENGINEER Body Mass Index 28.52 06/29/2018 12:43 PM SECURITY SYSTEMS ENGINEER Plan of Treatment Health Maintenance Due Date [...] age to complete this topic Care Teams Air Conditioning Insulation Installer Relationship Specialty Start Date End Date No Primary/Referring, Erviny PCP - General 06/29/18
--- OUTSIDE RECORDS SUMMARY | 2024-01-27 13:59 | XMS_ITS | Data Portability ---
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 Reviewed [...] offered reassurance. Follow-up in 15 days in [place]. Verbal, typewritten wound care instructions given. Cell phone number given [email or web address] Not available 10/28/2020 14:55:38 Plan of Treatment Reminders Order Date Submit Date Provider Last Modified By Organization Details Last Modified Time Details Appointments None recorded. Lab None recorded. Referral None recorded. Procedures None recorded. Surgeries None recorded. Imaging None recorded. Medication Orders doxycycline hyclate 100 mg capsule 2020 021 apappas6 [facility] #[id number], [address] [place], [place], [id number], 15:28:55 Patient TargetsNo targets recorded. Patient Instructions [...] 7737 Chloe Ferreira MD Main Office [address] [address] 10/28/2020 10:19:24 10/28/2020 15:30:04 Cellulitis [id number] Squamous c ell carcinoma of hand [id number] Actinic keratosis Health Concerns Section Related Observation LastModified by Organization Detai ls LastModified Time None Recorded Concern Status LastModified by Organization Details LastModified Time None Recorded Advance Directives Directive None Recorded Payers Encounter Date Sequence Insurance Name Policy Number Policy Garcia Covered Member ID Garcia Member ID Guarantor Name 10/28/2020 1 [facility] - INDIVIDUAL AND FAMILY (HMO) Akanksha Teodora [id number] Akanksha [place] Notes Date Note Type Note [...] in the interim since seeing her in [place]. Review systems: patient feels overall excellent health, weight stable, no issues with bleeding, clotting or healing. Chloe Ferreira MD [address] [place] [address],[facility] S, [place], [address], [facility] 10/28/2020 15:29:59 OBGyn Episode No OBEpisode recorded.
--- OUTSIDE RECORDS SUMMARY | 2024-01-27 13:59 | XMS_ITS | Referral Summary ---
Author Organization [facility] Address [address] [place] [address] Care Team Providers Care Nuclear Physician Name Role Phone Yuan Lira PA-C Primary Care Provider [phone] Allergies Active Allergy Reactions Criticality Noted Date [...] Comments Blood Pressure 113/67 10/08/2021 11:15 AM TURFGRASS TECHNICIAN Pulse 69 10/08/2021 11:15 AM TURFGRASS TECHNICIAN Temperature 36.9 ??C (98.4 ??F) 10/08/2021 9:25 AM CS T Respiratory Rate 18 10/08/2021 9:25 AM TURFGRASS TECHNICIAN Oxygen Saturation 97% 10/08/2021 11: 15 AM TURFGRASS TECHNICIAN Inhaled Oxygen Concentration - - Weight 74.8 kg (164 lb 14.5 oz) 022 10:08 AM TURFGRASS TECHNICIAN Height 157.5 cm (5' 2) 10/02/2017 9:05 AM TURFGRASS TECHNICIAN Body Mass Index 30.16 10/02/2017 9:05 AM TURFGRASS TECHNICIAN Plan of Treatment Not on file Procedures Procedure Name Priority Date/Time Associated Diagnosis Comments COMPREHENSIVE METABOLIC PANEL STAT 10/02/2017 8:50 AM TURFGRASS TECHNICIAN from Last 3 Months or Most Recently Relevant to Health Maintenance Results * (ABNORMAL) Comprehensive metabolic panel (10/02/2017 8:50 AM TURFGRASS TECHNICIAN) Sodium 138 133 - 144 mmol/L 10/02/2017 9:[address] [facility] Potassium 3.3(L) 3.4 - 5.3 mmol/L 10/02/2017 9:[address] [facility] Chloride 103 94 - 109 mmol/L 10/02/2017 9:[address] [facility] Carbon Dioxide 31 20 - 32 mmol/L 10/02/2017 9:[address] [facility] Anion Gap 4 3 - 14 mmol/L 10/02/2017 9:[address] [facility] Glucose 82 70 - 99 mg/dL 10/02/2017 9:[address] [facility] Urea Nitrogen 14 7 - 30 mg/dL 10/02/2017 9:[address] [facility] Creatinine 0.79 0.52 - 1.04 mg/dL 10/02/2017 9:[address] [facility] GFR Estimate 76 >60 mL/min/1.7 m2 10/02/2017 9:[address] [facility] Comment:Non GFR Calc GFR Estimate If Black >90 >60 mL/min/1.7 m2 10/02/2017 9:[address] [facility] Comment: GFR Calc Calcium 8.8 8.5 - 10.1 mg/dL 10/02/2017 9:[address] [facility] Bilirubin Total 0.3 0.2 - 1.3 mg/dL 10/02/2017 9:[address] [facility] Albumin 3.5 3.4 - 5.0 g/dL 10/02/2017 9:[address] [facility] Protein Total 7.4 6.8 - 8.8 g/dL 10/02/2017 9:[address] [facility] Alkaline Phosphatase 71 40 - 150 U/L 10/02/2017 9:[address] [facility] ALT 54(H) 0 - 50 U/L 10/02/2017 9:[address] [facility] AST 25 0 - 45 U/L 10/02/2017 9:[address] [facility] Blood specimen (specimen) 10/02/2017 8:50 AM TURFGRASS TECHNICIAN 10/02/2017 9:08 AM TURFGRASS TECHNICIAN Chip Urbina MD LAB - BLOOD ORD ERABLES [facility] [address] [place] [address], [facility] [phone] from Last 3 Months or Most Recently Relevant to Health Maintenance Care Teams Nuclear Physician Relationship Specialty Start Date End Date Yuan Lira PA-C [facility] & [address] [place], [place] [phone] PCP - General 10/08/21
--- OUTSIDE RECORDS SUMMARY | 2024-01-27 13:59 | XMS_ITS | Clinical Summary ---
Author Organization [facility] Address [employer] [place], [place] [address] Care Team Providers Care Retanned Leather Roller Name Role Phone Pcp, No Primary Care [...] 04/2014 and 07/2014. November 2014: EMG at [place], showed Moderate right and mild left Carpal [...] Department Care Team Description 11/29/[address] [facility] Scanner 1 scan: (1-Ord) [facility] DERMAPATHOLOGY, SKIN BIOPSY RESULT, 11/29/2023 from Last [...] 2 Maternal Grandmother Mother (Age 63) think [place]? Paternal Grandmother Sister Social History Tobacco Use [...] Comments SCAN-PATHOLOGY REPORT 11/29/2023 12:00 AM CDT CRACKLING PRESS OPERATOR THIN PREP PAP DIAGNOSTIC IMAGED Routine 02/12/2016 [...] (11/29/2023 12:00 AM CDT) Scanner OTHER * CRACKLING PRESS OPERATOR THIN PREP PAP DIAGNOSTIC IMAGED (02/12/2016 11:48 AM CDT) CRACKLING PRESS OPERATOR CYTOLOGY See Anatomic Pathology case 02/13/2016 12:00 PM CDT [facility] TRAL LABORATORY Other (Cervical) Non-Blood / Unknown 02/12/2016 11:48 AM CDT 02/12/2016 11:48 AM CDT Micaela Lainez DO PATHOLOGY/CYTOLOGY [facility] [address] [place] [address], [place] * OCCULT BLOOD IFOBT STOOL (02/12/2016 8:40 AM CDT) STOOL BLOOD ,IFOBT Negative Negative 02/12/2016 11:08 AM CDT [facility] Stool STOOL SPECIMEN / Unknown Non-Blood / Unknown 02/12/2016 8:40 AM CDT 02/12/2016 11:01 AM CDT Micaela Lainez DO LABORATORY [facility] [address] [place] [address], [place] [phone] * (ABNORMAL) LIPID PANEL W REFLEX MEASURED LDL (01/17/2016 7:24 AM CDT) CHOLESTEROL,TOTAL 242(H) 100 - 199 mg/dL 01/17/2016 4:59 PM CDT [facility] TRIGLYCERIDES 326(H) <150 mg/dL 01/17/2016 4:59 PM CDT [facility] HDL CHOLESTEROL 35(L) >40 mg/dL 01/17/2016 4:59 PM CDT [facility] NON-HDL CHOLESTEROL 207(H) <145 mg/dl 01/17/2016 4:59 PM CDT [facility] CHOL/HDL RATIO 6.91(H) <4.50 01/17/2016 4:59 PM CDT [facility] LDL CHOLESTEROL 142(H) <=130 mg/dL 01/17/2016 4:59 PM CDT [facility] PATIENT STATUS FASTING 01/17/2016 4:59 PM CDT [facility] Blood specimen (specimen) BLOOD SPECIMEN / Unknown Venipuncture / Unknown 01/17/2016 7:24 AM CDT 01/17/2016 7:25 AM CDT Saima Mayo MD CHEMISTRY [facility] [address] [place] [address], * ANTI HCV (03/31/2012 3:19 PM CDT) Pathologist [facility] ANTI HCV Non-reacti ve [facility] Blood specimen (specimen) BLOOD SPECIMEN / Unknown 03/31/2012 3:19 PM CDT 03/31/2012 3:18 PM CDT Cinthia Joya MD SEND OUTS [facility] INTERNAL ZIP [address] [place] [address] * ANTI HIV 1/2 (03/31/2012 3:19 PM CDT) Pathologist [facility] ANTI HIV 1/2 Non-reacti [facility] Blood specimen (specimen) BLOOD SPECIMEN / Unknown 03/31/2012 3:19 PM CDT 03/31/2012 3:18 PM CDT Cinthia Joya MD SEND OUTS [facility] INTERNAL ZIP [address] [address] [place] [address] * XR MAMMO SCREENING BILATERAL (09/18/2010) Anatomical Region Laterality Modality BREASTS, Breast Left, Breast Right Bilateral Other Cinthia Joya MD MAMMO from Last 3 Months or Most Recently Relevant to Health Maintenance Care Teams Retanned Leather Roller Relationship Specialty Start Date End Date Pcp, No . PCP - General 08/24/19
--- OUTSIDE RECORDS SUMMARY | 2024-01-27 13:59 | XMS_ITS | Clinical Summary ---
Author Organization [facility] Address [address] [place] [address] Care Team Providers Care Director Biologics Name Role Phone Yuan Lira PA-C Primary Care Provider [phone] Allergies Active Allergy Reactions Criticality Noted Date [...] Comments Blood Pressure 113/67 10/08/2021 11:[address] PHOTOGRAPHER Pulse 69 10/08/2021 11:[address] PHOTOGRAPHER Temperature 36.9 ??C (98.4 ??F) 10/08/2021 9:25 AM CS T Respiratory Rate 18 10/08/2021 9:[address] PHOTOGRAPHER Oxygen Saturation 97% 10/08/2021 11: [address] PHOTOGRAPHER Inhaled Oxygen Concentration - - Weight 74.8 kg (164 lb 14.5 oz) 022 10:[address] PHOTOGRAPHER Height 157.5 cm (5' 2) 10/02/2017 9:[address] PHOTOGRAPHER Body Mass Index 30.16 10/02/2017 9:[address] PHOTOGRAPHER Plan of Treatment Health Maintenance Due Date [...] COMPREHENSIVE METABOLIC PANEL STAT 10/02/2017 8:[address] PHOTOGRAPHER from Last 3 Months or Most Recently Relevant to Health Maintenance Results * (ABNORMAL) Comprehensive metabolic panel (10/02/2017 8:[address] PHOTOGRAPHER) Sodium 138 133 - 144 mmol/L 10/02/2017 9:30 AM [facility] Potassium 3.3(L) 3.4 - 5.3 mmol/L 10/02/2017 9:30 AM [facility] Chloride 103 94 - 109 mmol/L 10/02/2017 9:30 AM [facility] Carbon Dioxide 31 20 - 32 mmol/L 10/02/2017 9:30 AM [facility] Anion Gap 4 3 - 14 mmol/L 10/02/2017 9:30 AM [facility] Glucose 82 70 - 99 mg/dL 10/02/2017 9:30 AM [facility] Urea Nitrogen 14 7 - 30 mg/dL 10/02/2017 9:30 AM [facility] Creatinine 0.79 0.52 - 1.04 mg/dL 10/02/2017 9:30 AM [facility] GFR Estimate 76 >60 mL/min/1.7 m2 10/02/2017 9:30 AM [facility] Comment:Non GFR Calc GFR Estimate If Black >90 >60 mL/min/1.7 m2 10/02/2017 9:30 AM [facility] Comment: GFR Calc Calcium 8.8 8.5 - 10.1 mg/dL 10/02/2017 9:30 AM [facility] Bilirubin Total 0.3 0.2 - 1.3 mg/dL 10/02/2017 9:30 AM [facility] Albumin 3.5 3.4 - 5.0 g/dL 10/02/2017 9:30 AM [facility] Protein Total 7.4 6.8 - 8.8 g/dL 10/02/2017 9:30 AM [facility] Alkaline Phosphatase 71 40 - 150 U/L 10/02/2017 9:30 AM [facility] ALT 54(H) 0 - 50 U/L 10/02/2017 9:30 AM [facility] AST 25 0 - 45 U/L 10/02/2017 9:30 AM [facility] Blood specimen (specimen) 10/02/2017 8:[address] PHOTOGRAPHER 10/02/2017 9:[address] PHOTOGRAPHER Chip Urbina MD LAB - BLOOD ORD ERABLES [facility] [address] [place] [address], [facility] [phone] from Last 3 Months or Most Recently Relevant to Health Maintenance Care Teams Director Biologics Relationship Specialty Start Date End Date Yuan Lira PA-C [facility] [address] [place] [address] [address] [facility] [place] [address] PCP - General 10/08/21
--- OUTSIDE RECORDS SUMMARY | 2024-01-27 13:59 | XMS_ITS | Encounter Summary ---
Author Organization [facility] Address [address] [place] [address] Care Team Providers Care Branch Chief Name Role Phone Yuan Lira PA-C Primary Care Provider [phone] Encounter Details Date Type Department Care Team [...] COVID-19? No / Unsure 10/08/2021 9:20 AM RIG HAND documented as of this encounter Plan of Treatment Not on file documented as of this encounter Visit Diagnoses Not on filedocumented in this encounter Care Teams Branch Chief Relationship Specialty Start Date End Date Yuan Lira PA-C [facility] [address] [facility] [place] [address] PCP - General 10/08/21 documented as of this encounter
== END 2024-01-27 13:57 | disposition home or self-care (01) ==
LOC: WOUND 13:56
PROVIDERS: PCP Physician Assistant Medical; Visit Provider Family Medicine
DX: E11.622 Type 2 diabetes mellitus with other skin ulcer (principal); E11.42 Type 2 diabetes mellitus with diabetic polyneuropathy; L97.822 Non-pressure chronic ulcer of other part of left lower leg with fat layer exposed; K05.6 Periodontal disease, unspecified; K75.81 Nonalcoholic steatohepatitis (NASH); E03.9 Hypothyroidism, unspecified; Z79.84 Long term (current) use of oral hypoglycemic drugs; Z72.0 Tobacco use
CPT/HCPCS: 11042; G0463

== ENCOUNTER 2024-02-04 10:01 | Outpatient (CLI) | payer BC, SELFPAY ==
--- OUTSIDE RECORDS SUMMARY | 2024-02-04 10:03 | XMS_ITS | Clinical Summary ---
Author Organization [facility] Address [address] [place] [address] Care Team Providers Care Autographer Name Role Phone Yuan Lira PA-C Primary Care Provider [phone] Allergies Active Allergy Reactions Criticality Noted Date [...] Comments Blood Pressure 113/67 10/08/2021 11:15 AM SODA FOUNTAIN MANAGER Pulse 69 10/08/2021 11:15 AM SODA FOUNTAIN MANAGER Temperature 36.9 ??C (98.4 ??F) 10/08/2021 9:25 AM CS T Respiratory Rate 18 10/08/2021 9:25 AM SODA FOUNTAIN MANAGER Oxygen Saturation 97% 10/08/2021 11: 15 AM SODA FOUNTAIN MANAGER Inhaled Oxygen Concentration - - Weight 74.8 kg (164 lb 14.5 oz) 022 10:08 AM SODA FOUNTAIN MANAGER Height 157.5 cm (5' 2) 10/02/2017 9:05 AM SODA FOUNTAIN MANAGER Body Mass Index 30.16 10/02/2017 9:05 AM SODA FOUNTAIN MANAGER Plan of Treatment Health Maintenance Due [...] COMPREHENSIVE METABOLIC PANEL STAT 10/02/2017 8:50 AM SODA FOUNTAIN MANAGER from Last 3 Months or Most Recently Relevant to Health Maintenance Results * (ABNORMAL) Comprehensive metabolic panel (10/02/2017 8:50 AM SODA FOUNTAIN MANAGER) Sodium 138 133 - 144 mmol/L 10/02/2017 9:30 AM [facility] Potassium 3.3(L) 3.4 - 5.3 mmol/L 10/02/2017 9:30 AM [facility] Chloride 103 94 - 109 mmol/L 10/02/2017 9:30 AM [facility] Carbon Dioxide 31 20 - 32 mmol/L 10/02/2017 9:30 AM [facility] Anion Gap 4 3 - 14 mmol/L 10/02/2017 9:30 AM [facility] Glucose 82 70 - 99 mg/dL 10/02/2017 9:30 AM [facility] Urea Nitrogen 14 7 - 30 mg/dL 10/02/2017 9:30 AM [facility] Creatinine 0.79 0.52 - 1.04 mg/dL 10/02/2017 9:30 AM [facility] GFR Estimate 76 >60 mL/min/1.7 m2 10/02/2017 9:30 AM [facility] Comment:Non GFR Calc GFR Estimate If Black >90 >60 mL/min/1.7 m2 10/02/2017 9:30 AM [facility] Comment: GFR Calc Calcium 8.8 8.5 - 10.1 mg/dL 10/02/2017 9:30 AM [facility] Bilirubin Total 0.3 0.2 - 1.3 mg/dL 10/02/2017 9:30 AM [facility] Albumin 3.5 3.4 - 5.0 g/dL 10/02/2017 9:30 AM [facility] Protein Total 7.4 6.8 - 8.8 g/dL 10/02/2017 9:30 AM [facility] Alkaline Phosphatase 71 40 - 150 U/L 10/02/2017 9:30 AM [facility] ALT 54(H) 0 - 50 U/L 10/02/2017 9:30 AM [facility] AST 25 0 - 45 U/L 10/02/2017 9:30 AM [facility] Blood specimen (specimen) 10/02/2017 8:50 AM SODA FOUNTAIN MANAGER 10/02/2017 9:08 AM SODA FOUNTAIN MANAGER Chip Urbina MD LAB - BLOOD ORD ERABLES [facility] [address] [place] [address], [facility] [phone] from Last 3 Months or Most Recently Relevant to Health Maintenance Care Teams Autographer Relationship Specialty Start Date End Date Yuan Lria PA-C [facility] [address] [place] [address] [place] [address] PCP - General 10/08/21
--- OUTSIDE RECORDS SUMMARY | 2024-02-04 10:03 | XMS_ITS | Encounter Summary ---
Author Organization [facility] Address [address] [place] [address] Care Team Providers Care V Belt Coverer Name Role Phone Yuan Lira PA-C Primary Care Provider [phone] Encounter Details Date Type Department Care Team [...] COVID-19? No / Unsure 10/08/2021 9:20 AM TYRE FITTER documented as of this encounter Plan of Treatment Not on file documented as of this encounter Visit Diagnoses Not on filedocumented in this encounter Care Teams V Belt Coverer Relationship Specialty Start Date End Date Yuan Lira PA-C [facility] [address] [place] [address] PCP - General 10/08/21 documented as of this encounter
--- OUTSIDE RECORDS SUMMARY | 2024-02-04 10:03 | XMS_ITS | Clinical Summary ---
Author Organization [facility] Address [place], [place] [address] Care Team Providers Care Associate Financial Analyst Name Role Phone Pcp, No Primary Care [...] 04/2014 and 07/2014. November 2014: EMG at [place], showed Moderate right and mild left Carpal [...] Department Care Team Description 11/29/2023 Orders Only [facility] Scanner 1 scan: (1-Ord) [facility] DERMAPATHOLOGY, SKIN BIOPSY RESULT, 11/29/2023 from Last [...] 2 Maternal Grandmother Mother (Age 63) [address]? Paternal Grandmother Sister Social History Tobacco Use [...] Comments SCAN-PATHOLOGY REPORT 11/29/2023 12:00 AM CDT DIRECTOR SOCIAL SERVICE THIN PREP PAP DIAGNOSTIC IMAGED Routine 02/12/2016 [...] (11/29/2023 12:00 AM CDT) Scanner OTHER * DIRECTOR SOCIAL SERVICE THIN PREP PAP DIAGNOSTIC IMAGED (02/12/2016 11:48 AM CDT) DIRECTOR SOCIAL SERVICE CYTOLOGY See Anatomic Pathology case 02/13/2016 12:00 PM CDT [facility] TRAL LABORATORY Other (Cervical) Non-Blood / Unknown 02/12/2016 11:48 AM CDT 02/12/2016 11:48 AM CDT Micaela Lainez DO PATHOLOGY/CYTOLOGY [facility] [address] [place] [address], [place] * OCCULT BLOOD IFOBT STOOL (02/12/2016 8:40 AM CDT) STOOL BLOOD ,IFOBT Negative Negative 02/12/2016 11:08 AM CDT [facility] Stool STOOL SPECIMEN / Unknown Non-Blood / Unknown 02/12/2016 8:40 AM CDT 02/12/2016 11:01 AM CDT Micaela Lainez DO LABORATORY [facility] [address] [place] [address], [place] [phone] * (ABNORMAL) LIPID PANEL W REFLEX MEASURED [...] 7:25 AM CDT Saima Mayo MD CHEMISTRY [facility] [address] [place] [address], * ANTI HCV (03/31/2012 3:19 PM CDT) Pathologist [facility] [place] ANTI HCV Non-reacti ve [facility] Blood specimen (specimen) BLOOD SPECIMEN / Unknown 03/31/2012 3:19 PM CDT 03/31/2012 3:18 PM CDT Cinthia Joya MD SEND OUTS [facility] INTERNAL ZIP [id number] [place] [address] * ANTI HIV 1/2 (03/31/2012 3:19 PM CDT) Pathologist [facility] [place] ANTI HIV 1/2 Non-reacti [facility] Blood specimen (specimen) BLOOD SPECIMEN / Unknown 03/31/2012 3:19 PM CDT 03/31/2012 3:18 PM CDT Cinthia Joya MD SEND OUTS [facility] INTERNAL ZIP [id number] [address] [place] [address] * XR MAMMO SCREENING BILATERAL (09/18/2010) Anatomical Region Laterality Modality BREASTS, Breast Left, Breast Right Bilateral Other Cinthia Joya MD MAMMO from Last 3 Months or Most Recently Relevant to Health Maintenance Care Teams Associate Financial Analyst Relationship Specialty Start Date End Date Pcp, No . PCP - General 08/24/19
--- OUTSIDE RECORDS SUMMARY | 2024-02-04 10:03 | XMS_ITS | Referral Summary ---
Author Organization [facility] Address [address] [place] [address] Care Team Providers Care Educational Therapist Name Role Phone Yuan Lira PA-C Primary Care Provider [phone] Allergies Active Allergy Reactions Criticality Noted Date [...] Comments Blood Pressure 113/67 10/08/2021 11:15 AM BIOINFORMATICS SUPPORT SPECIALIST Pulse 69 10/08/2021 11:15 AM BIOINFORMATICS SUPPORT SPECIALIST Temperature 36.9 ??C (98.4 ??F) 10/08/2021 9:25 AM CS T Respiratory Rate 18 10/08/2021 9:25 AM BIOINFORMATICS SUPPORT SPECIALIST Oxygen Saturation 97% 10/08/2021 11: 15 AM BIOINFORMATICS SUPPORT SPECIALIST Inhaled Oxygen Concentration - - Weight 74.8 kg (164 lb 14.5 oz) 022 10:08 AM BIOINFORMATICS SUPPORT SPECIALIST Height 157.5 cm (5' 2) 10/02/2017 9:05 AM BIOINFORMATICS SUPPORT SPECIALIST Body Mass Index 30.16 10/02/2017 9:05 AM BIOINFORMATICS SUPPORT SPECIALIST Plan of Treatment Not on file Procedures Procedure Name Priority Date/Time Associated Diagnosis Comments COMPREHENSIVE METABOLIC PANEL STAT 10/02/2017 8:50 AM BIOINFORMATICS SUPPORT SPECIALIST from Last 3 Months or Most Recently Relevant to Health Maintenance Results * (ABNORMAL) Comprehensive metabolic panel (10/02/2017 8:50 AM BIOINFORMATICS SUPPORT SPECIALIST) Sodium 138 133 - 144 mmol/L 10/02/2017 9:30 AM [facility] Potassium 3.3(L) 3.4 - 5.3 mmol/L 10/02/2017 9:30 AM [facility] Chloride 103 94 - 109 mmol/L 10/02/2017 9:30 AM [facility] Carbon Dioxide 31 20 - 32 mmol/L 10/02/2017 9:30 AM [facility] Anion Gap 4 3 - 14 mmol/L 10/02/2017 9:30 AM [facility] Glucose 82 70 - 99 mg/dL 10/02/2017 9:30 AM [facility] Urea Nitrogen 14 7 - 30 mg/dL 10/02/2017 9:30 AM [facility] Creatinine 0.79 0.52 - 1.04 mg/dL 10/02/2017 9:30 AM [facility] GFR Estimate 76 >60 mL/min/1.7 m2 10/02/2017 9:30 AM [facility] Comment:Non GFR Calc GFR Estimate If Black >90 >60 mL/min/1.7 m2 10/02/2017 9:30 AM [facility] Comment: GFR Calc Calcium 8.8 8.5 - 10.1 mg/dL 10/02/2017 9:30 AM [facility] Bilirubin Total 0.3 0.2 - 1.3 mg/dL 10/02/2017 9:30 AM [facility] Albumin 3.5 3.4 - 5.0 g/dL 10/02/2017 9:30 AM [facility] Protein Total 7.4 6.8 - 8.8 g/dL 10/02/2017 9:30 AM [facility] Alkaline Phosphatase 71 40 - 150 U/L 10/02/2017 9:30 AM [facility] ALT 54(H) 0 - 50 U/L 10/02/2017 9:30 AM [facility] AST 25 0 - 45 U/L 10/02/2017 9:30 AM [facility] Blood specimen (specimen) 10/02/2017 8:50 AM BIOINFORMATICS SUPPORT SPECIALIST 10/02/2017 9:08 AM BIOINFORMATICS SUPPORT SPECIALIST Chip Urbina MD LAB - BLOOD ORD ERABLES [facility] [address] [place] [address], [facility] [phone] from Last 3 Months or Most Recently Relevant to Health Maintenance Care Teams Educational Therapist Relationship Specialty Start Date End Date Yuan Lira PA-C [facility] & [address] [place], [place] [id number] PCP - General 10/08/21
--- OUTSIDE RECORDS SUMMARY | 2024-02-04 10:03 | XMS_ITS | Clinical Summary ---
Author Organization [facility] Address [address] [place] [address] Care Team Providers Care Medical Laboratory Technician Name Role Phone No Primary/Referring, Phy Primary Care Provider Unavailable Source Comments You are receiving this document as you are listed as the primary care provider,follow-up provider, or the patient has been referred to you for consultation.This is in compliance with the Medicare and[facility] EHR Incentive Program,which states Providers who transition their patient to another setting of careor provider of care or refers their patient to another provider of care shouldprovide summary care record for each transition of care or referral. FID3 Allergies Active Allergy Reactions Criticality Noted Date [...] Comments Blood Pressure 143/91 06/29/2018 12:43 PM ULTRASOUND SONOGRAPHER Pulse 79 06/29/2018 12:43 PM ULTRASOUND SONOGRAPHER Temperature 36.9 ??C (98.4 ??F) 06/29/2018 12:[address] Respiratory Rate 20 06/29/2018 12:43 PM ULTRASOUND SONOGRAPHER Oxygen Saturation 96% 06/29/2018 12:43 PM ULTRASOUND SONOGRAPHER Inhaled Oxygen Concentration - - Weight 73 kg (161 lb) 06/29/2018 12:43 PM ULTRASOUND SONOGRAPHER Height 160 cm (5' 3) 06/29/2018 12:43 PM ULTRASOUND SONOGRAPHER Body Mass Index 28.52 06/29/2018 12:43 PM ULTRASOUND SONOGRAPHER Plan of Treatment Health Maintenance Due Date [...] age to complete this topic Care Teams Medical Laboratory Technician Relationship Specialty Start Date End Date No Primary/Referring, Erviny PCP - General 06/29/18
== END 2024-02-04 10:02 | disposition home or self-care (01) ==
LOC: WOUND 10:01
PROVIDERS: PCP Physician Assistant Medical; Visit Provider Nurse Practitioner Family
DX: E11.622 Type 2 diabetes mellitus with other skin ulcer (principal); E11.42 Type 2 diabetes mellitus with diabetic polyneuropathy; L97.828 Non-pressure chronic ulcer of other part of left lower leg with other specified severity; Z79.84 Long term (current) use of oral hypoglycemic drugs
CPT/HCPCS: 11042

== ENCOUNTER 2024-02-11 10:10 | Outpatient (CLI) | payer BC, SELFPAY ==
--- OUTSIDE RECORDS SUMMARY | 2024-02-11 10:13 | XMS_ITS | Clinical Summary ---
Author Organization [facility] Address [address] [place] [address] Care Team Providers Care Class A Lineman Name Role Phone No Primary/Referring, Phy Primary Care Provider Unavailable Source Comments You are receiving this document as you are listed as the primary care provider,follow-up provider, or the patient has been referred to you for consultation.This is in compliance with the Medicare and[facility] EHR Incentive Program,which states Providers who transition their patient to another setting of careor provider of care or refers their patient to another provider of care shouldprovide summary care record for each transition of care or referral. [employer] Allergies Active Allergy Reactions Criticality Noted Date [...] Comments Blood Pressure 143/91 06/29/2018 12:43 PM RECREATION ENGINEER Pulse 79 06/29/2018 12:43 PM RECREATION ENGINEER Temperature 36.9 ??C (98.4 ??F) 06/29/2018 12:[address] Respiratory Rate 20 06/29/2018 12:43 PM RECREATION ENGINEER Oxygen Saturation 96% 06/29/2018 12:43 PM RECREATION ENGINEER Inhaled Oxygen Concentration - - Weight 73 kg (161 lb) 06/29/2018 12:43 PM RECREATION ENGINEER Height 160 cm (5' 3) 06/29/2018 12:43 PM RECREATION ENGINEER Body Mass Index 28.52 06/29/2018 12:43 PM RECREATION ENGINEER Plan of Treatment Health Maintenance Due [...] age to complete this topic Care Teams Class A Lineman Relationship Specialty Start Date End Date No Primary/Referring, Erviny PCP - General 06/29/18
--- OUTSIDE RECORDS SUMMARY | 2024-02-11 10:13 | XMS_ITS | Clinical Summary ---
Author Organization [facility] Address [address] [place] [address] Care Team Providers Care Router Operator Name Role Phone Yuan Lira PA-C Primary Care Provider [phone] Allergies Active Allergy Reactions Criticality Noted Date [...] Comments Blood Pressure 113/67 10/08/2021 11:15 AM FACILITIES CUSTODIAN Pulse 69 10/08/2021 11:15 AM FACILITIES CUSTODIAN Temperature 36.9 ??C (98.4 ??F) 10/08/2021 9:25 AM CS T Respiratory Rate 18 10/08/2021 9:25 AM FACILITIES CUSTODIAN Oxygen Saturation 97% 10/08/2021 11: 15 AM FACILITIES CUSTODIAN Inhaled Oxygen Concentration - - Weight 74.8 kg (164 lb 14.5 oz) 022 10:08 AM FACILITIES CUSTODIAN Height 157.5 cm (5' 2) 10/02/2017 9:05 AM FACILITIES CUSTODIAN Body Mass Index 30.16 10/02/2017 9:05 AM FACILITIES CUSTODIAN Plan of Treatment Health Maintenance Due Date [...] (once per calendar year) 2023 INFLUENZA VACCINE (#1) 2024 07/07/2016 DTAP/TDAP/TD IMMUNIZATION (2 - Td [...] COMPREHENSIVE METABOLIC PANEL STAT 10/02/2017 8:50 AM FACILITIES CUSTODIAN from Last 3 Months or Most Recently Relevant to Health Maintenance Results * (ABNORMAL) Comprehensive metabolic panel (10/02/2017 8:50 AM FACILITIES CUSTODIAN) Sodium 138 133 - 144 mmol/L 10/02/2017 [...] CENTER Blood specimen (specimen) 10/02/2017 8:50 AM FACILITIES CUSTODIAN 10/02/2017 9:08 AM FACILITIES CUSTODIAN Chip Urbina MD LAB - BLOOD ORD ERABLES [facility] [address] [place] [address], [facility] [phone] from Last 3 Months or Most Recently Relevant to Health Maintenance Care Teams Router Operator Relationship Specialty Start Date End Date Yuan Liar PA-C [facility] [address] [place] [address] [address] [facility] [address] PCP - General 10/08/21
--- OUTSIDE RECORDS SUMMARY | 2024-02-11 10:13 | XMS_ITS | Continuity of Care Document ---
Author Organization [facility] Address [address] [address] [place] [address] Phone Care Team Providers Care Core Analysis Operator Name Role Phone Rin Mcmillan Unavailable Unavailabl e Allergies, Adverse Reactions, Alerts Substance Reaction Status Criticality semaglutide Active No Information morphine Angioedema Active No Information PENICILLIN Nausea/Vomiting Active No Informati on Medications Medication Instructions Dosage Effective Dates (start - stop) Status Comments ondansetron [address] 1 tablet by translingual route up to 3 times every day on top of the tongue where they will dissolve, then swallow - Active Tylenol Extra Strength 500 mg tablet take 2 tablet by oral route every 6 hours as needed 1000 MG - Active metformin ER 1,000 mg tablet,extended release 24hr (osmotic) take 2 tablet by oral route every day with glipizde 1 in am 1 in pm - Active omeprazole 20 mg capsule,delayed release take 1 capsule by oral route every day 30 minutes to 1 hour before a meal 20 MG - Active levothyroxine 100 mcg capsule take 1 capsule by oral route every day 100 MCG - Active Vistaril 50 mg capsule take 1 capsule by oral route as needed - Active hydrochlorothiazide 50 mg tablet take 1 tablet by oral route every day 50 MG - Active citalopram 10 mg tablet take 1 Tablet by oral route every day 10 MG - Active glipizide 10 mg tablet take 1 tablet by oral route 2 times every day before a meal 10 MG - Active Ventolin HFA 90 mcg/actuation aerosol inhaler inhale 1 - 2 puff by inhalation route every 4 - 6 hours as needed 1-2 puff - Active ondansetron [address] 1 tablet by translingual route up to 3 times every day on top of the tongue where they will dissolve, then swallow - No Longer Active Procedures Procedure Date Offic/outpt E&m Estab Mod-hi 2 Routine Serum Collection Offic/outpt E&m Estab Mod-hi 2 24 Routine Serum Collection Offic/outpt E&m Estab Mod-hi 2 23 Routine Serum Collection Ugi Endo; W/bx 1/mx Level Iv-surg Path Gross/micro 23 Office Cons New/estab Mod Routine Serum Collection Advance Directives Directive Yes / No Effective Date File Name No Information Encounters Encounter Description Practice Location Reason(s) For Visit Diagnoses Date Provider Providers Copied on Encounter [facility], [address] [address], [place], [id number], [place] tel:[phone] [facility] No Information 4 Jonatan Gar . [address] [place] [address], [facility] [address], [place], [id number] , [place]. tel:[phone] [facility], [address] [address], [place], [id number], [place] tel:[phone] [facility] Chronic diarrhea 4 Jonatan Gar . [address] [facility], [place], [id number] , [place]. tel:[phone] Offic/outpt E&m Estab Mod-hi 2 [facility] [address] [address], [place], [id number], [place] tel:[phone] [facility] GI Symptoms or Concerns (chief complaint) Chronic nauseaChronic diarrheaNonalcoholi c steatohepatitis (VALENCIA)Chronic depressionElevated blood-pressure reading, w/o diagnosis of htn 4 Jonatan Gar . [address] [facility] [address], [place], [place], [id number] , [place]. [phone] Referring Provider: Referral Self, USE FOR SELF REFERRALS. Offic/outpt E&m Estab Mod-hi 2 [facility], [address] [address], [place], [id number], [place] tel:[phone] [facility] GI Symptoms or Concerns (chief complaint) Nonalcoholic steatohepatitis (VALENCIA)Early satietyOther fatigueRight lower quadrant abdominal painEssential (primary) hypertension 4 Jonatan Gar . [address] [facility] [address], [address], [place], [place], [id number] , [place]. [phone] Referring Provider: Rin Inman, [address] [facility] [address], [place], [address] . tel:[phone] Offic/outpt E&m Estab Mod-hi 2 [facility], [address] [address], [place], [id number], [place] tel:[phone] [facility] GI Symptoms or Concerns (chief complaint) Nonalcoholic steatohepatitis (VALENCIA)Chronic diarrhea 3 Jonatan Gar . [address] [facility] [address], [address], [place], [place], [id number] , [place]. [phone] Referring Provider: Referral Self, USE FOR SELF REFERRALS. [facility], [address] [address], [place], [place], [id number], [place] tel:[phone] [facility] GI Symptoms or Concerns (chief complaint) Early satietyHiatal herniaEarly satietyDiaphragmati c hernia without obstruction or gangrene 3 Anayeli Ferrera . [address] [facility] [address], [place], [place], [id number] , [place]. [phone] Referring Provider: Referral Self, USE FOR SELF REFERRALS. [facility], [address] [address], [place], [id number], [place] tel:[phone] [facility] Elevated LFTs 3 Jonatan PAIZ Rin . [address] [facility], [place], [id number] , [place]. [phone] Office Cons New/estab Mod [facility], [address] [address], [place], [id number], [place] tel:[phone] [facility] GI Symptoms or Concerns (chief complaint) Elevated LFTsEarly satiety 3 Jonatan Gar . [address] [facility], [address], [place], [id number] , [place]. [phone] Referring Provider: Yuan PAIZ, [address], [place], [address]. tel:[phone] [facility], [address] [address], [place], [id number], [place] tel:[phone] [facility] No Information 3 Johnny Pagan. [address] [facility], [place], [id number] , [place]. [phone] Family History Family Member Type Diagnosis Age At Onset Sister Problem (finding) Pancreatitis Mother Problem (finding) Thyroid disorder Mother Problem (finding) Pancreatitis Brother Problem (finding) Pancreatitis Sister Problem (finding) Gallbladder disease Son Problem (finding) GERD Mother Problem (finding) Gallbladder disease Son Problem (finding) Pancreatitis Immunizations Vaccine Date Status Comments Afluria Qd administered Note: [facility] bi-directional interface ; Source: Other Registry tetanus toxoid, reduced diphtheria toxoid, and acellular pertussis vaccine, adsorbed administered Note: [facility] bi-direct ional interface ; Source: Other Registry Payers Payer name Insurance type Covered republican ID Authoriza tion(s) No Information Social History Type Description Quantity Date Captured Comments Alcohol Use Details Unknown Caffeine Use Details Unknown Tobacco Use Status Smoking Status No Information Sex Female Chief Complaint And Reason For Visit No Information Reason For Referral Reason For Referral No Information Plan Of Treatment Date Type Action Status Referral Ordered: referred to Endocrinology Diabetes management, suspect gastropares ordered Referral Ordered: referred to Psychiatry Depression ordered Referral Ordered: Gastric Emptying Study (4 Hours) Appointment date/timeframe: 03/31/2024 ordered Referral Ordered: Ultrasound Liver Appointment date/timeframe: 03/31/2024 ordered Referral Ordered: CT Abdomen And Pelvis With Contrast Per Radiology Appointment date/timeframe: 10/04/2023 ordered Referral Ordered: follow-up visit 3 Months Appointment date/timeframe: 3 Months ordered Referral Ordered: CT Abdomen And Pelvis WITH Contrast Appointment date/timeframe: 04/13/2023 ordered Referral Ordered: Liver Biopsy With Ultrasound Guidance Appointment date/timeframe: 02/12/2023 ordered Referral Ordered: Celiac: TTG IgA + Total IgA ordered Referral Ordered: Actin (Smooth Muscle) Antibody ordered Referral Ordered: AntiMitochondrial Ab (AMA), By IFA ordered Referral Ordered: EGD Appointment date/timeframe: 01/28/2023 ordered Referral Ordered: Antinuclear Antibodies, TIA, IFA ordered Referral Ordered: Hemochromatosis, DNA Gene Test, Whole Blood Appointment date/timeframe: 03/05/2023 ordered History Of Present Illness Encounter Date Complaint History Of Prese nt Illness GI Symptoms or Concerns Akanksha Colorado is a 58-year-old female seen today for follow-up of several GI concerns including 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 She was subsequently started on hepatoma screening. Most recently she underwent a CT abdomen and pelvis with contrast for evaluation of right lower quadrant abdominal pain as well as hepatoma surveillance. This revealed diffuse hepatic steatosis without any intrahepatic masses or ascites and no acute changes to explain abdominal pain.Laboratory testing 09/16/2023 revealed a normal AFP of 4.3 hemoglobin of 17.1, total bilirubin 0.3 mildly elevated aminotransferases with ALT of 91 AST 53. This had been improvement compared to January 2023. Labs in September showed a substantially elevated glucose of 286, hemoglobin A1c of 9.9, TSH of 2.2 and INR 1.0.Today, patient reports she was started on Ozempic for management of her diabetes but this was ultimately stopped on November 13. She has continued issues with upper abdominal pain, nausea and vomiting. There she notes that there have been times that she has vomiting and throws up food from several days prior. She reports her last A1c was 11-she is not sure exactly when this was last checked. Has not seen endocrinology. She has been following a bland diet as she is not able to tolerate many foods. Her teeth have started to erode due to frequency of vomiting.She does endorse ongoing issues with GERD. She is not taking omeprazole daily has been taking Zantac at night.She continues to have issues with diarrheal stools typically 3-4 times per day. She has not had any recent antibiotics. Does not consume many dairy products.Of note, she did have a basal cell carcinoma on her ankle that was removed recently. She has been taking ibuprofen and Tylenol for this.Due to ongoing symptoms patient reports worsening depression. Denies any suicidal or homicidal ideation. 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 She was also noted to have an elevated hemoglobin A1c of 11.1, elevated triglycerides of 506, along with elevated total cholesterol and low HDL. An abdominal ultrasound in 2019 had revealed concern for hepatic steatosis. Serological workup had been remarkable for a positive smooth-muscle antibody at 21. Additional serologies for autoimmune liver disease including TIA and antimitochondrial antibody were negative. Testing was negative to screen for celiac disease. She was not GI Symptoms or Concerns Akanksha Colorado is a 57 year old female seen today for follow up of elevated LFTs and hepatic steatosis. She is accompanied today by her sister, Carol. I last saw patient for a visit on 01/21/2023 and refer you to my previous note for further details. Her past medical history significant for anxiety, diabetes, hyperlipidemia, hypertension, anorexia and bulimia (in recovery), cervical cancer status post hysterectomy and thyroid disease status post thyroidectomy. A prior ultrasound in 2019 for concern of right upper quadrant pain and vomiting had revealed coarsened echogenicity of the liver concerning for fatty liver but was otherwise unremarkable. At the time of her last visit she had also endorsed some early satiety along with frequent stomachaches happened taking significant amount of ibuprofen for dental pain she had also reported continued tobacco use. She does not drink alcohol. Following her last visit laboratory testing was significant for a weakly positive smooth muscle antibody and elevated aminotransferases with AST 103 ALT 155. She was noted to have an elevated hemoglobin level of 17.4 with an elevated ferritin of 276 however her other iron studies are within acceptable ranges. Gene testing for C282Y, H63D and S65C mutations for hereditary hemochromatosis was negative. Viral hepatitis serologies revealed a negative hepatitis-B surface antigen, core antibody and surface antibody. Hepatitis-C antibody was negative. She was noted to have a normal alpha 1 antitrypsin level a negative TIA and negative antimitochondrial antibody. Tissue transglutaminase levels within acceptable ranges with slightly elevated IgA level. Given her weekly positive smooth muscle antibody she did undergo a liver biopsy which revealed steatohepatitis with moderate inflammatory activity and stage III of 4 bridging fibrosis. Given her early satiety she underwent upper endoscopy which revealed gastritis with erosions and erythema in the antrum and a small hiatal hernia pathology demonstrated normal gastric mucosa.Since her last visit, patient reports her stomach discomfort has continued. She is continuing to take Prilosec 20 milligrams daily before bed but no chills not taken this in the last several days due to nausea which she takes Vistaril for. She reports continued lack of appetite but reports she is no longer taking ibuprofen. She does report frequent night sweats and does still have her ovaries following her hysterectomy. She was previously on supplemental estrogen but this was stopped given concerns with her liver. She also notes frequent loose stools that typically do not have any form to them but occur mainly in the morning. She did recently have a tooth extraction and was prescribed clindamycin for 5 days but reports she did not finish her course of this medication. Denies any recent travel. No known prior exposures to individuals with gastrointestinal illnesses. Denies any melena or hematochezia. She reports her last colonoscopy was about a year ago in [place] unfortunately I do not have results of that but patient reports it was unremarkable. GI Symptoms or Concerns GI Symptoms or Concerns Akanksha Colorado is a 57-year-old female seen today at the request of Yuan Lira PA-C for concern of elevated LFTs.She is accompanied today by her sister, Carol. Past medical history is significant for anxiety, diabetes, hyperlipidemia, hypertension, anorexia and bulimia (in recovery), cervical cancer status post hysterectomy and thyroid disease status post thyroidectomy.I reviewed records from [facility] which included laboratory testing for on 12/03/2022 t and included a CBC with an elevated hemoglobin of 17.5, platelet count of 254, hepatic function panel with elevated transaminases with AST 138, ALT 261, alkaline phosphatase 93, albumin 4.7, total bilirubin 0.7, elevated hemoglobin A1c of 11.1, elevated triglycerides of 506 with elevated total cholesterol 276, HDL 34 and LDL of 141. TSH was elevated to low at 11.0 with free T4 in normal limits at 1.09. She also underwent ultrasound of the abdomen on 02/24/2020 concern of right upper quadrant pain and vomiting which revealed coarsened echogenicity of the liver concerning for fatty liver but was otherwise unremarkable.She denies any known history of liver disease. No family history of liver disease. Previously had been prescribed a statin for management of her hyperlipidemia but reports she did not regularly take it. Recently has had her dose of metformin and levothyroxine changed. She does endorse early satiety along with frequent stomach aches. Endorses use of Ibuprofen 800mg 3x/wk for dental pain and does not take a PPI. Reports regular bowel movements daily- Bourbon Type 4 or 6 in consistency. She notes she needs significant dental work completed 2/2 anorexia and bulimia and notes she needs clearance from a liver standpoint to proceed with this. Denies any melena, hematochezia, dysphagia, jaundice, nausea and vomiting. SOCIAL HISTORY EtOH- Denies alcohol use, no heavier useTobacco- 20cigs/ day IV/IN Drugs: no history Tattoos- done professionally in a shop Herbal supplements- none Diet: Whole wheat toast, eggs, more tuna, lettuce wraps, coffee with sugar free creamer, no soda, juices Weight: Has been stable but doesn't pay a lot of attention as recovering anorexic Multiple sexual partners in the past- not aware that any had hx of viral hepatitis MEDICATIONSHydrochlorothizide, ibuprofen, citalopram, levothyroxine, vistaril, glipizide, ventolin, metformin Functional Status Date Functional Assessmen t No Information Instructions Date Instruction Additional Infor sophia Insulin resistance diet Related to Nonalcoholic steatohepatitis (VALENCIA) Hiatal Hernia Related to Hiata l hernia Assessments Type Assessment Date No Information Patient Care Teams Name Effective Dates (start - stop) Status Members No Information
--- OUTSIDE RECORDS SUMMARY | 2024-02-11 10:13 | XMS_ITS | Clinical Summary ---
Author Organization [facility] Address [place], [place] [address] Care Team Providers Care Varnish Remover Name Role Phone Pcp, No Primary Care [...] 04/2014 and 07/2014. November 2014: EMG at [place], showed Moderate right and mild left Carpal [...] Department Care Team Description 11/29/2023 Orders Only [facility] Scanner 1 scan: (1-Ord) [facility] DERMAPATHOLOGY, SKIN BIOPSY RESULT, 11/29/2023 from [...] 2 Maternal Grandmother Mother (Age 63) think [place]? Paternal Grandmother Sister Social History Tobacco Use [...] Comments SCAN-PATHOLOGY REPORT 11/29/2023 12:00 AM CDT BENCH TECHNICIAN THIN PREP PAP DIAGNOSTIC IMAGED Routine 02/12/2016 [...] (11/29/2023 12:00 AM CDT) Scanner OTHER * BENCH TECHNICIAN THIN PREP PAP DIAGNOSTIC IMAGED (02/12/2016 11:48 AM CDT) BENCH TECHNICIAN CYTOLOGY See Anatomic Pathology case 02/13/2016 12:00 PM CDT [facility] Other (Cervical) Non-Blood / Unknown 02/12/2016 11:48 AM CDT 02/12/2016 11:48 AM CDT Micaela Lainez DO PATHOLOGY/[facility]Y [facility] [address] [place] [address], [place] * OCCULT BLOOD IFOBT STOOL (02/12/2016 8:40 AM CDT) STOOL BLOOD ,IFOBT Negative Negative 02/12/2016 11:08 AM CDT [facility] Stool STOOL SPECIMEN / Unknown Non-Blood / Unknown 02/12/2016 8:40 AM CDT 02/12/2016 11:01 AM CDT Micaela Lainez DO LABORATORY [facility] [address] [place] [address], [place] [phone] * (ABNORMAL) LIPID PANEL W REFLEX MEASURED LDL (01/17/2016 7:24 AM CDT) CHOLESTEROL,TOTAL 242(H) 100 - 199 mg/dL 01/17/2016 4:59 PM CDT [facility] TRIGLYCERIDES 326(H) <150 mg/dL 01/17/2016 4:59 PM CDT [facility] HDL CHOLESTEROL 35(L) >40 mg/dL 01/17/2016 4:59 PM CDT [facility] NON-HDL CHOLESTEROL 207(H) <145 mg/dl 01/17/2016 4:59 PM CDT [facility] CHOL/HDL RATIO 6.91(H) <4.50 01/17/2016 4:59 PM CDT [facility] LDL CHOLESTEROL 142(H) <=130 mg/dL 01/17/2016 4:59 PM CDT [facility] PATIENT STATUS FASTING 01/17/2016 4:59 PM CDT [facility] Blood specimen (specimen) BLOOD SPECIMEN / Unknown Venipuncture / Unknown 01/17/2016 7:24 AM CDT 01/17/2016 7:25 AM CDT Saima Mayo MD CHEMISTRY [facility] [address] [place] [address], * ANTI HCV (03/31/2012 3:19 PM CDT) Pathologist [facility] ANTI HCV Non-reacti ve [facility] Blood specimen (specimen) BLOOD SPECIMEN / Unknown 03/31/2012 3:19 PM CDT 03/31/2012 3:18 PM CDT Cinthia Joya MD SEND OUTS [facility] INTERNAL ZIP [id number] [place] [address] * ANTI HIV 1/2 (03/31/2012 3:19 PM CDT) Pathologist [facility] ANTI HIV 1/2 Non-reacti [facility] Blood specimen (specimen) BLOOD SPECIMEN / Unknown 03/31/2012 3:19 PM CDT 03/31/2012 3:18 PM CDT Cinthia Joya MD SEND OUTS [facility] INTERNAL ZIP [id number] [address] [place] [address] * XR MAMMO SCREENING BILATERAL (09/18/2010) Anatomical Region Laterality Modality BREASTS, Breast Left, Breast Right Bilateral Other Cinthia Joya MD MAMMO from Last 3 Months or Most Recently Relevant to Health Maintenance Care Teams Varnish Remover Relationship Specialty Start Date End Date Pcp, No . PCP - General 08/24/19
--- OUTSIDE RECORDS SUMMARY | 2024-02-11 10:13 | XMS_ITS | Encounter Summary ---
Author Organization [facility] Address [address] [place] [address] Care Team Providers Care Water Taxi Driver Name Role Phone Yuan Lira PA-C Primary Care Provider [phone] Encounter Details Date Type Department Care Team [...] COVID-19? No / Unsure 10/08/2021 9:20 AM PR MANAGER documented as of this encounter Plan of Treatment Not on file documented as of this encounter Visit Diagnoses Not on filedocumented in this encounter Care Teams Water Taxi Driver Relationship Specialty Start Date End Date Yuan Lira PA-C [facility] [address] [place] [address] PCP - General 10/08/21 documented as of this encounter
--- OUTSIDE RECORDS SUMMARY | 2024-02-11 10:13 | XMS_ITS | Referral Summary ---
Author Organization [facility] Address [address] [place] [address] Care Team Providers Care Business Management Manager Name Role Phone Yuan Lira PA-C Primary Care Provider [phone] Allergies Active Allergy Reactions Criticality Noted Date [...] Comments Blood Pressure 113/67 10/08/2021 11:15 AM STEREOTYPER APPRENTICE Pulse 69 10/08/2021 11:15 AM STEREOTYPER APPRENTICE Temperature 36.9 ??C (98.4 ??F) 10/08/2021 9:25 AM CS T Respiratory Rate 18 10/08/2021 9:25 AM STEREOTYPER APPRENTICE Oxygen Saturation 97% 10/08/2021 11: 15 AM STEREOTYPER APPRENTICE Inhaled Oxygen Concentration - - Weight 74.8 kg (164 lb 14.5 oz) 022 10:08 AM STEREOTYPER APPRENTICE Height 157.5 cm (5' 2) 10/02/2017 9:05 AM STEREOTYPER APPRENTICE Body Mass Index 30.16 10/02/2017 9:05 AM STEREOTYPER APPRENTICE Plan of Treatment Not on file Procedures Procedure Name Priority Date/Time Associated Diagnosis Comments COMPREHENSIVE METABOLIC PANEL STAT 10/02/2017 8:50 AM STEREOTYPER APPRENTICE from Last 3 Months or Most Recently Relevant to Health Maintenance Results * (ABNORMAL) Comprehensive metabolic panel (10/02/2017 8:50 AM STEREOTYPER APPRENTICE) Sodium 138 133 - 144 mmol/L 10/02/2017 9:[address] [facility] Potassium 3.3(L) 3.4 - 5.3 mmol/L 10/02/2017 9:[address] [facility] Chloride 103 94 - 109 mmol/L 10/02/2017 9:[address] [facility] Carbon Dioxide 31 20 - 32 mmol/L 10/02/2017 9:[address] [facility] Anion Gap 4 3 - 14 mmol/L 10/02/2017 9:[address] [facility] Glucose 82 70 - 99 mg/dL 10/02/2017 9:[address] [facility] Urea Nitrogen 14 7 - 30 mg/dL 10/02/2017 9:[address] [facility] Creatinine 0.79 0.52 - 1.04 mg/dL 10/02/2017 9:[address] [facility] GFR Estimate 76 >60 mL/min/1.7 m2 10/02/2017 9:[address] [facility] Comment:Non GFR Calc GFR Estimate If Black >90 >60 mL/min/1.7 m2 10/02/2017 9:[address] [facility] Comment: GFR Calc Calcium 8.8 8.5 - 10.1 mg/dL 10/02/2017 9:[address] [facility] Bilirubin Total 0.3 0.2 - 1.3 mg/dL 10/02/2017 9:[address] [facility] Albumin 3.5 3.4 - 5.0 g/dL 10/02/2017 9:[address] [facility] Protein Total 7.4 6.8 - 8.8 g/dL 10/02/2017 9:[address] [facility] Alkaline Phosphatase 71 40 - 150 U/L 10/02/2017 9:[address] [facility] ALT 54(H) 0 - 50 U/L 10/02/2017 9:[address] [facility] AST 25 0 - 45 U/L 10/02/2017 9:[address] [facility] Blood specimen (specimen) 10/02/2017 8:50 AM STEREOTYPER APPRENTICE 10/02/2017 9:08 AM STEREOTYPER APPRENTICE Chip Urbina MD LAB - BLOOD ORD ERABLES [facility] [address] [place] [address], [facility] [phone] from Last 3 Months or Most Recently Relevant to Health Maintenance Care Teams Business Management Manager Relationship Specialty Start Date End Date Yuan Lira PA-C [facility] & [address] [place], [place] [phone] PCP - General 10/08/21
== END 2024-02-11 10:11 | disposition home or self-care (01) ==
LOC: WOUND 10:10
PROVIDERS: PCP Physician Assistant Medical; Visit Provider Nurse Practitioner Family
DX: E11.622 Type 2 diabetes mellitus with other skin ulcer (principal); E11.42 Type 2 diabetes mellitus with diabetic polyneuropathy; L97.822 Non-pressure chronic ulcer of other part of left lower leg with fat layer exposed; Z79.84 Long term (current) use of oral hypoglycemic drugs
CPT/HCPCS: 11042

== ENCOUNTER 2024-02-25 09:57 | Outpatient (CLI) | payer BC, SELFPAY ==
--- OUTSIDE RECORDS SUMMARY | 2024-02-25 09:59 | XMS_ITS | Encounter Summary ---
Author Organization [facility] Address [address] [place] [address] Care Team Providers Care Grinding Wheel Operator Name Role Phone Yuan Lira PA-C Primary Care Provider [phone] Encounter Details Date Type Department Care Team [...] COVID-19? No / Unsure 10/08/2021 9:20 AM RN NEONATAL documented as of this encounter Plan of Treatment Not on file documented as of this encounter Visit Diagnoses Not on filedocumented in this encounter Care Teams Grinding Wheel Operator Relationship Specialty Start Date End Date Yuan Lira PA-C [facility] [address] [place] [address] PCP - General 10/08/21 documented as of this encounter
--- OUTSIDE RECORDS SUMMARY | 2024-02-25 09:59 | XMS_ITS | Clinical Summary ---
Author Organization [facility] Address [address] [place] [address] Care Team Providers Care Knot Tying Operator Name Role Phone No Primary/Referring, Phy Primary Care Provider Unavailable Source Comments You are receiving this document as you are listed as the primary care provider,follow-up provider, or the patient has been referred to you for consultation.This is in compliance with the Medicare and[facility] EHR Incentive Program,which states Providers who transition their patient to another setting of careor provider of care or refers their patient to another provider of care shouldprovide summary care record for each transition of care or referral. WhoKnows Allergies Active Allergy Reactions Criticality Noted Date [...] Comments Blood Pressure 143/91 06/29/2018 12:43 PM COIL WINDER REPAIR Pulse 79 06/29/2018 12:43 PM COIL WINDER REPAIR Temperature 36.9 ??C (98.4 ??F) 06/29/2018 12:[address] Respiratory Rate 20 06/29/2018 12:43 PM COIL WINDER REPAIR Oxygen Saturation 96% 06/29/2018 12:43 PM COIL WINDER REPAIR Inhaled Oxygen Concentration - - Weight 73 kg (161 lb) 06/29/2018 12:43 PM COIL WINDER REPAIR Height 160 cm (5' 3) 06/29/2018 12:43 PM COIL WINDER REPAIR Body Mass Index 28.52 06/29/2018 12:43 PM COIL WINDER REPAIR Plan of Treatment Health Maintenance Due Date Last Done Comments Cervical Cancer Screening Due 1965 Colon Cancer Screening Plan Due 1965 Hep C Screening (Preventive Services) 1965 Mammogram 1965 HIV Screening (Preventive Services) 1981 Adult Preventive Visit 1983 HepB (1) 1984 Cholesterol 2010 Zoster/Shingles (1 of 2) 2015 COVID-19 Vaccine (1 - 2022-2 4 season) 2023 Influenza (#1) 2024 07/07/2016 DTaP/Tdap/Td (2 - Tdap) 03/11/2025 [...] age to complete this topic Care Teams Knot Tying Operator Relationship Specialty Start Date End Date No Primary/Referring, Erviny PCP - General 06/29/18
--- OUTSIDE RECORDS SUMMARY | 2024-02-25 09:59 | XMS_ITS | Clinical Summary ---
Author Organization [place] Address [address] [place] [address] Care Team Providers Care Tube Bending Machine Operator Name Role Phone Yuan Lira PA-C Primary Care Provider Allergies Active Allergy Reactions Criticality Noted Date [...] Comments Blood Pressure 113/67 10/08/2021 11:15 AM RESIDENTIAL DOOR UNIT INSTALLER Pulse 69 10/08/2021 11:15 AM RESIDENTIAL DOOR UNIT INSTALLER Temperature 36.9 ??C (98.4 ??F) 10/08/2021 9:25 AM CS T Respiratory Rate 18 10/08/2021 9:25 AM RESIDENTIAL DOOR UNIT INSTALLER Oxygen Saturation 97% 10/08/2021 11: 15 AM RESIDENTIAL DOOR UNIT INSTALLER Inhaled Oxygen Concentration - - Weight 74.8 kg (164 lb 14.5 oz) 022 10:08 AM RESIDENTIAL DOOR UNIT INSTALLER Height 157.5 cm (5' 2) 10/02/2017 9:05 AM RESIDENTIAL DOOR UNIT INSTALLER Body Mass Index 30.16 10/02/2017 9:05 AM RESIDENTIAL DOOR UNIT INSTALLER Plan of Treatment Health Maintenance Due Date [...] COMPREHENSIVE METABOLIC PANEL STAT 10/02/2017 8:50 AM RESIDENTIAL DOOR UNIT INSTALLER from Last 3 Months or Most Recently Relevant to Health Maintenance Results * (ABNORMAL) Comprehensive metabolic panel (10/02/2017 8:50 AM RESIDENTIAL DOOR UNIT INSTALLER) Sodium 138 133 - 144 mmol/L 10/02/2017 9:30 AM [facility] Potassium 3.3(L) 3.4 - 5.3 mmol/L 10/02/2017 9:30 AM [facility] Chloride 103 94 - 109 mmol/L 10/02/2017 9:30 AM [facility] Carbon Dioxide 31 20 - 32 mmol/L 10/02/2017 9:30 AM [facility] Anion Gap 4 3 - 14 mmol/L 10/02/2017 9:30 AM [facility] Glucose 82 70 - 99 mg/dL 10/02/2017 9:30 AM [facility] Urea Nitrogen 14 7 - 30 mg/dL 10/02/2017 9:30 AM [facility] Creatinine 0.79 0.52 - 1.04 mg/dL 10/02/2017 9:30 AM [facility] GFR Estimate 76 >60 mL/min/1.7 m2 10/02/2017 9:30 AM [facility] Comment:Non GFR Calc GFR Estimate If Black >90 >60 mL/min/1.7 m2 10/02/2017 9:30 AM [facility] Comment: GFR Calc Calcium 8.8 8.5 - 10.1 mg/dL 10/02/2017 9:30 AM [facility] Bilirubin Total 0.3 0.2 - 1.3 mg/dL 10/02/2017 9:30 AM [facility] Albumin 3.5 3.4 - 5.0 g/dL 10/02/2017 9:30 AM [facility] Protein Total 7.4 6.8 - 8.8 g/dL 10/02/2017 9:30 AM [facility] Alkaline Phosphatase 71 40 - 150 U/L 10/02/2017 9:30 AM [facility] ALT 54(H) 0 - 50 U/L 10/02/2017 9:30 AM [facility] AST 25 0 - 45 U/L 10/02/2017 9:30 AM [facility] Blood specimen (specimen) 10/02/2017 8:50 AM RESIDENTIAL DOOR UNIT INSTALLER 10/02/2017 9:08 AM RESIDENTIAL DOOR UNIT INSTALLER Chip Urbina MD LAB - BLOOD ORD ERABLES [facility] [address] [place] [address] [place] [address], [facility] [phone] from Last 3 Months or Most Recently Relevant to Health Maintenance Care Teams Tube Bending Machine Operator Relationship Specialty Start Date End Date Yuan Lira PA-C [facility] [address] [place] [address] [place] [address] PCP - General 10/08/21
--- OUTSIDE RECORDS SUMMARY | 2024-02-25 09:59 | XMS_ITS | Referral Summary ---
Author Organization [facility] Address [address] [place] [address] Care Team Providers Care Customs Collector Name Role Phone Yuan Lira PA-C Primary Care Provider [phone] Allergies Active Allergy Reactions Criticality Noted Date [...] Comments Blood Pressure 113/67 10/08/2021 11:15 AM MORTGAGE LOAN REVIEWER Pulse 69 10/08/2021 11:15 AM MORTGAGE LOAN REVIEWER Temperature 36.9 ??C (98.4 ??F) 10/08/2021 9:25 AM CS T Respiratory Rate 18 10/08/2021 9:25 AM MORTGAGE LOAN REVIEWER Oxygen Saturation 97% 10/08/2021 11: 15 AM MORTGAGE LOAN REVIEWER Inhaled Oxygen Concentration - - Weight 74.8 kg (164 lb 14.5 oz) 022 10:08 AM MORTGAGE LOAN REVIEWER Height 157.5 cm (5' 2) 10/02/2017 9:05 AM MORTGAGE LOAN REVIEWER Body Mass Index 30.16 10/02/2017 9:05 AM MORTGAGE LOAN REVIEWER Plan of Treatment Not on file Procedures Procedure Name Priority Date/Time Associated Diagnosis Comments COMPREHENSIVE METABOLIC PANEL STAT 10/02/2017 8:50 AM MORTGAGE LOAN REVIEWER from Last 3 Months or Most Recently Relevant to Health Maintenance Results * (ABNORMAL) Comprehensive metabolic panel (10/02/2017 8:50 AM MORTGAGE LOAN REVIEWER) Sodium 138 133 - 144 mmol/L 10/02/2017 9:30 AM [facility] Potassium 3.3(L) 3.4 - 5.3 mmol/L 10/02/2017 9:30 AM [facility] Chloride 103 94 - 109 mmol/L 10/02/2017 9:30 AM [facility] Carbon Dioxide 31 20 - 32 mmol/L 10/02/2017 9:30 AM [facility] Anion Gap 4 3 - 14 mmol/L 10/02/2017 9:30 AM [facility] Glucose 82 70 - 99 mg/dL 10/02/2017 9:30 AM [facility] Urea Nitrogen 14 7 - 30 mg/dL 10/02/2017 9:30 AM [facility] Creatinine 0.79 0.52 - 1.04 mg/dL 10/02/2017 9:30 AM [facility] GFR Estimate 76 >60 mL/min/1.7 m2 10/02/2017 9:30 AM [facility] Comment:Non GFR Calc GFR Estimate If Black >90 >60 mL/min/1.7 m2 10/02/2017 9:30 AM [facility] Comment: GFR Calc Calcium 8.8 8.5 - 10.1 mg/dL 10/02/2017 9:30 AM [facility] Bilirubin Total 0.3 0.2 - 1.3 mg/dL 10/02/2017 9:30 AM [facility] Albumin 3.5 3.4 - 5.0 g/dL 10/02/2017 9:30 AM [facility] Protein Total 7.4 6.8 - 8.8 g/dL 10/02/2017 9:30 AM [facility] Alkaline Phosphatase 71 40 - 150 U/L 10/02/2017 9:30 AM [facility] ALT 54(H) 0 - 50 U/L 10/02/2017 9:30 AM [facility] AST 25 0 - 45 U/L 10/02/2017 9:30 AM [facility] Blood specimen (specimen) 10/02/2017 8:50 AM MORTGAGE LOAN REVIEWER 10/02/2017 9:08 AM MORTGAGE LOAN REVIEWER Chip Urbina MD LAB - BLOOD ORD ERABLES [facility] [address] [place] [address], [facility] [phone] from Last 3 Months or Most Recently Relevant to Health Maintenance Care Teams Customs Collector Relationship Specialty Start Date End Date Yuan Lira PA-C [facility] & [address] [place], [place] [id number] PCP - General 10/08/21
--- OUTSIDE RECORDS SUMMARY | 2024-02-25 10:00 | XMS_ITS | Clinical Summary ---
Author Organization [facility] Address [place], [place] [address] Care Team Providers Care Bakery Clerk Name Role Phone Pcp, No Primary Care [...] 04/2014 and 07/2014. November 2014: EMG at [place], showed Moderate right and mild left Carpal [...] Department Care Team Description 11/29/2023 Orders Only [facility] Scanner 1 scan: (1-Ord) [facility] DERMAPATHOLOGY, SKIN BIOPSY RESULT, 11/29/2023 from [...] 2 Maternal Grandmother Mother (Age 63) think [place]? Paternal Grandmother Sister Social History Tobacco Use [...] Comments SCAN-PATHOLOGY REPORT 11/29/2023 12:00 AM CDT REFERRAL AGENT THIN PREP PAP DIAGNOSTIC IMAGED Routine 02/12/2016 [...] (11/29/2023 12:00 AM CDT) Scanner OTHER * REFERRAL AGENT THIN PREP PAP DIAGNOSTIC IMAGED (02/12/2016 11:48 AM CDT) REFERRAL AGENT CYTOLOGY See Anatomic Pathology case 02/13/2016 12:00 PM CDT [facility] TRAL LABORATORY Other (Cervical) Non-Blood / Unknown 02/12/2016 11:48 AM CDT 02/12/2016 11:48 AM CDT Micaela Lainez DO PATHOLOGY/CYTOLOGY [facility] [address] [place] [address], [place] * OCCULT BLOOD IFOBT STOOL (02/12/2016 8:40 AM CDT) STOOL BLOOD ,IFOBT Negative Negative 02/12/2016 11:08 AM CDT [facility] Stool STOOL SPECIMEN / Unknown Non-Blood / Unknown 02/12/2016 8:40 AM CDT 02/12/2016 11:01 AM CDT Micaela Lainez DO LABORATORY [facility] [address] [place] [address], [place] [phone] * (ABNORMAL) LIPID PANEL W REFLEX MEASURED LDL (01/17/2016 7:24 AM CDT) CHOLESTEROL,TOTAL 242(H) 100 - 199 mg/dL 01/17/2016 4:59 PM CDT [facility] TRIGLYCERIDES 326(H) <150 mg/dL 01/17/2016 4:59 PM CDT [facility] HDL CHOLESTEROL 35(L) >40 mg/dL 01/17/2016 4:59 PM CDT [facility] NON-HDL CHOLESTEROL 207(H) <145 mg/dl 01/17/2016 4:59 PM CDT [facility] CHOL/HDL RATIO 6.91(H) <4.50 01/17/2016 4:59 PM CDT [facility] LDL CHOLESTEROL 142(H) <=130 mg/dL 01/17/2016 4:59 PM CDT [facility] PATIENT STATUS FASTING 01/17/2016 4:59 PM CDT [facility] Blood specimen (specimen) BLOOD SPECIMEN / Unknown Venipuncture / Unknown 01/17/2016 7:24 AM CDT 01/17/2016 7:25 AM CDT Saima Mayo MD CHEMISTRY [facility] [address] [place] [address], * ANTI HCV (03/31/2012 3:19 PM CDT) Pathologist [facility] ANTI HCV Non-reacti ve [facility] Blood specimen (specimen) BLOOD SPECIMEN / Unknown 03/31/2012 3:19 PM CDT 03/31/2012 3:18 PM CDT Cinthia Joya MD SEND OUTS [facility] INTERNAL ZIP [address] [place] [address] * ANTI HIV 1/2 (03/31/2012 3:19 PM CDT) Pathologist [facility] ANTI HIV 1/2 Non-reacti [facility] Blood specimen (specimen) BLOOD SPECIMEN / Unknown 03/31/2012 3:19 PM CDT 03/31/2012 3:18 PM CDT Cinthia Joya MD SEND OUTS [facility] INTERNAL ZIP [address] [address] [place] [address] * XR MAMMO SCREENING BILATERAL (09/18/2010) Anatomical Region Laterality Modality BREASTS, Breast Left, Breast Right Bilateral Other Cinthia Joya MD MAMMO from Last 3 Months or Most Recently Relevant to Health Maintenance Care Teams Bakery Clerk Relationship Specialty Start Date End Date Pcp, No . PCP - General 08/24/19
== END 2024-02-25 09:58 | disposition home or self-care (01) ==
LOC: WOUND 09:57
PROVIDERS: PCP Physician Assistant Medical; Visit Provider Nurse Practitioner Family
DX: E11.622 Type 2 diabetes mellitus with other skin ulcer (principal); E11.42 Type 2 diabetes mellitus with diabetic polyneuropathy; L97.828 Non-pressure chronic ulcer of other part of left lower leg with other specified severity; Z79.84 Long term (current) use of oral hypoglycemic drugs
CPT/HCPCS: 11042

== ENCOUNTER 2024-03-03 09:17 | Outpatient (CLI) | payer BC, SELFPAY ==
--- OUTSIDE RECORDS SUMMARY | 2024-03-03 09:21 | XMS_ITS | Encounter Summary ---
Author Organization [place] Address [address] [place] [address] Care Team Providers Care Parking Attendant Name Role Phone Yuan Lira PA-C Primary Care Provider [phone] Encounter Details Date Type Department Care Team [...] COVID-19? No / Unsure 10/08/2021 9:20 AM RAMP SERVICE EMPLOYEE documented as of this encounter Plan of Treatment Not on file documented as of this encounter Visit Diagnoses Not on filedocumented in this encounter Care Teams Parking Attendant Relationship Specialty Start Date End Date Yuan Lira PA-C [facility] [address], [place] [address] PCP - General 10/08/21 documented as of this encounter
--- OUTSIDE RECORDS SUMMARY | 2024-03-03 09:21 | XMS_ITS | Clinical Summary ---
Author Organization [place] Address [address] [place] [address] Care Team Providers Care Spinning And Winding Supervisor Name Role Phone Yuan Lira PA-C Primary Care Provider [phone] Allergies Active Allergy Reactions Criticality Noted Date [...] Comments Blood Pressure 113/67 10/08/2021 11:15 AM INTERIOR PAINTER Pulse 69 10/08/2021 11:15 AM INTERIOR PAINTER Temperature 36.9 ??C (98.4 ??F) 10/08/2021 9:25 AM CS T Respiratory Rate 18 10/08/2021 9:25 AM INTERIOR PAINTER Oxygen Saturation 97% 10/08/2021 11: 15 AM INTERIOR PAINTER Inhaled Oxygen Concentration - - Weight 74.8 kg (164 lb 14.5 oz) 022 10:08 AM INTERIOR PAINTER Height 157.5 cm (5' 2) 10/02/2017 9:05 AM INTERIOR PAINTER Body Mass Index 30.16 10/02/2017 9:05 AM INTERIOR PAINTER Plan of Treatment Health Maintenance Due Date [...] COMPREHENSIVE METABOLIC PANEL STAT 10/02/2017 8:50 AM INTERIOR PAINTER from Last 3 Months or Most Recently Relevant to Health Maintenance Results * (ABNORMAL) Comprehensive metabolic panel (10/02/2017 8:50 AM INTERIOR PAINTER) Sodium 138 133 - 144 mmol/L 10/02/2017 [...] HEALTH Blood specimen (specimen) 10/02/2017 8:50 AM INTERIOR PAINTER 10/02/2017 9:08 AM INTERIOR PAINTER Chip Urbina MD LAB - BLOOD ORD ERABLES [facility] [address] [place] [address], [facility] [phone] from Last 3 Months or Most Recently Relevant to Health Maintenance Care Teams Spinning And Winding Supervisor Relationship Specialty Start Date End Date Yuan Lira PA-C [facility] [address] [place] [address] [place] [address] PCP - General 10/08/21
--- OUTSIDE RECORDS SUMMARY | 2024-03-03 09:21 | XMS_ITS | Clinical Summary ---
Author Organization [employer] [facility] Address [place], [place] [address] Care Team Providers Care Artificial Flowers Supervisor Name Role Phone Pcp, No Primary Care [...] 04/2014 and 07/2014. November 2014: EMG at [place], showed Moderate right and mild left Carpal [...] 2 Maternal Grandmother Mother (Age 63) think [place]? Paternal Grandmother Sister Social History Tobacco Use [...] Procedure Name Priority Date/Time Associated Diagnosis Comments RN GYNECOLOGY THIN PREP PAP DIAGNOSTIC IMAGED Routine 02/12/2016 [...] Recently Relevant to Health Maintenance Results * RN GYNECOLOGY THIN PREP PAP DIAGNOSTIC IMAGED (02/12/2016 11:48 AM CDT) RN GYNECOLOGY CYTOLOGY See Anatomic Pathology case 02/13/2016 12:00 PM CDT [facility] TRA LABORATORY Other (Cervical) Non-Blood / Unknown 02/12/2016 11:48 AM CDT 02/12/2016 11:48 AM CDT Micaela Lainez DO PATHOLOGY/CYTOLOGY [facility] [address] [place] [address], * OCCULT BLOOD IFOBT STOOL (02/12/2016 8:40 AM CDT) STOOL BLOOD ,IFOBT Negative Negative 02/12/2016 11:08 AM CDT [facility] Stool STOOL SPECIMEN / Unknown Non-Blood / Unknown 02/12/2016 8:40 AM CDT 02/12/2016 11:01 AM CDT Micaela Lainez DO LABORATORY [facility] [address] [place] [address], * (ABNORMAL) LIPID PANEL W REFLEX MEASURED LDL (01/17/2016 7:24 AM CDT) CHOLESTEROL,TOTAL 242(H) 100 - 199 mg/dL 01/17/2016 4:59 PM CDT [facility] TRAL LABORATORY TRIGLYCERIDES 326(H) <150 mg/dL 01/17/2016 4:59 PM CDT [facility] TRAL LAB[facility]ATORY HDL CHOLESTEROL 35(L) >40 mg/dL 01/17/2016 4:59 PM CDT [facility] NON-HDL CHOLESTEROL 207(H) <145 mg/dl 01/17/2016 4:59 PM CDT [facility] TRAL LABORATORY CHOL/HDL RATIO 6.91(H) <4.50 01/17/2016 4:59 PM CDT [facility] TRAL LAB[facility] LDL CHOLESTEROL 142(H) <=130 mg/dL 01/17/2016 4:59 PM CDT [facility] TRAL LAB[facility]ATORY PATIENT STATUS FASTING 01/17/2016 4:59 PM CDT [facility] TR[facility] Blood specimen (specimen) BLOOD SPECIMEN / Unknown Venipuncture / Unknown 01/17/2016 7:24 AM CDT 01/17/2016 7:25 AM CDT Saima Mayo MD CHEMISTRY [facility] [address] [place] [address], * ANTI HCV (03/31/2012 3:19 PM CDT) ANTI HCV Non-reacti ve [facility] Blood specimen (specimen) BLOOD SPECIMEN / Unknown 03/31/2012 3:19 PM CDT 03/31/2012 3:18 PM CDT Cinthia Joya MD SEND OUTS [facility] INTERNAL ZIP [address] [place] [address] * ANTI HIV 1/2 (03/31/2012 3:19 PM CDT) ANTI HIV 1/2 Non-reacti ve [facility] Blood specimen (specimen) BLOOD SPECIMEN / Unknown 03/31/2012 3:19 PM CDT 03/31/2012 3:18 PM CDT Cinthia Joya MD SEND OUTS [facility] INTERNAL ZIP [address] [place] [address] * XR MAMMO SCREENING BILATERAL (09/18/2010) Anatomical Region Laterality Modality BREASTS, Breast Left, Breast Right Bilateral Other Cinthia Joya MD MAMMO from Last 3 Months or Most Recently Relevant to Health Maintenance Care Teams Artificial Flowers Supervisor Relationship Specialty Start Date End Date Pcp, No . PCP - General 08/24/19
--- OUTSIDE RECORDS SUMMARY | 2024-03-03 09:21 | XMS_ITS | Clinical Summary ---
Author Organization [facility] Address [address] [place] [address] Care Team Providers Care Day Spa Manager Name Role Phone No Primary/Referring, Phy Primary Care Provider Unavailable Source Comments You are receiving this document as you are listed as the primary care provider,follow-up provider, or the patient has been referred to you for consultation.This is in compliance with the Medicare and[facility] Hospitalca[facility] EHR Incentive Program,which states Providers who transition their patient to another setting of careor provider of care or refers their patient to another provider of care shouldprovide summary care record for each transition of care or referral. [employer] Allergies Active Allergy Reactions Criticality Noted Date [...] Comments Blood Pressure 143/91 06/29/2018 12:43 PM PRODUCT MARKETING ENGINEER Pulse 79 06/29/2018 12:43 PM PRODUCT MARKETING ENGINEER Temperature 36.9 ??C (98.4 ??F) 06/29/2018 12:[address] Respiratory Rate 20 06/29/2018 12:43 PM PRODUCT MARKETING ENGINEER Oxygen Saturation 96% 06/29/2018 12:43 PM PRODUCT MARKETING ENGINEER Inhaled Oxygen Concentration - - Weight 73 kg (161 lb) 06/29/2018 12:43 PM PRODUCT MARKETING ENGINEER Height 160 cm (5' 3) 06/29/2018 12:43 PM PRODUCT MARKETING ENGINEER Body Mass Index 28.52 06/29/2018 12:43 PM PRODUCT MARKETING ENGINEER Plan of Treatment Health Maintenance Due [...] age to complete this topic Care Teams Day Spa Manager Relationship Specialty Start Date End Date No Primary/Referring, Erviny PCP - General 06/29/18
--- OUTSIDE RECORDS SUMMARY | 2024-03-03 09:21 | XMS_ITS | Referral Summary ---
Author Organization [place] Address [address] [place] [address] Care Team Providers Care Water Aerobics Instructor Name Role Phone Yuan Lira PA-C Primary Care Provider [phone] Allergies Active Allergy Reactions Criticality Noted Date [...] Comments Blood Pressure 113/67 10/08/2021 11:15 AM ETHYLENE PLANT OPERATOR Pulse 69 10/08/2021 11:15 AM ETHYLENE PLANT OPERATOR Temperature 36.9 ??C (98.4 ??F) 10/08/2021 9:25 AM CS T Respiratory Rate 18 10/08/2021 9:25 AM ETHYLENE PLANT OPERATOR Oxygen Saturation 97% 10/08/2021 11: 15 AM ETHYLENE PLANT OPERATOR Inhaled Oxygen Concentration - - Weight 74.8 kg (164 lb 14.5 oz) 022 10:08 AM ETHYLENE PLANT OPERATOR Height 157.5 cm (5' 2) 10/02/2017 9:05 AM ETHYLENE PLANT OPERATOR Body Mass Index 30.16 10/02/2017 9:05 AM ETHYLENE PLANT OPERATOR Plan of Treatment Not on file Procedures Procedure Name Priority Date/Time Associated Diagnosis Comments COMPREHENSIVE METABOLIC PANEL STAT 10/02/2017 8:50 AM ETHYLENE PLANT OPERATOR from Last 3 Months or Most Recently Relevant to Health Maintenance Results * (ABNORMAL) Comprehensive metabolic panel (10/02/2017 8:50 AM ETHYLENE PLANT OPERATOR) Sodium 138 133 - 144 mmol/L 10/02/2017 9:30 AM [facility] Potassium 3.3(L) 3.4 - 5.3 mmol/L 10/02/2017 9:30 AM [facility] Chloride 103 94 - 109 mmol/L 10/02/2017 9:30 AM [facility] Carbon Dioxide 31 20 - 32 mmol/L 10/02/2017 9:30 AM [facility] Anion Gap 4 3 - 14 mmol/L 10/02/2017 9:30 AM [facility] Glucose 82 70 - 99 mg/dL 10/02/2017 9:30 AM [facility] Urea Nitrogen 14 7 - 30 mg/dL 10/02/2017 9:30 AM [facility] Creatinine 0.79 0.52 - 1.04 mg/dL 10/02/2017 9:30 AM [facility] GFR Estimate 76 >60 mL/min/1.7 m2 10/02/2017 9:30 AM [facility] Comment:Non GFR Calc GFR Estimate If Black >90 >60 mL/min/1.7 m2 10/02/2017 9:30 AM [facility] Comment: GFR Calc Calcium 8.8 8.5 - 10.1 mg/dL 10/02/2017 9:30 AM [facility] Bilirubin Total 0.3 0.2 - 1.3 mg/dL 10/02/2017 9:30 AM [facility] Albumin 3.5 3.4 - 5.0 g/dL 10/02/2017 9:30 AM [facility] Protein Total 7.4 6.8 - 8.8 g/dL 10/02/2017 9:30 AM [facility] Alkaline Phosphatase 71 40 - 150 U/L 10/02/2017 9:30 AM [facility] ALT 54(H) 0 - 50 U/L 10/02/2017 9:30 AM [facility] AST 25 0 - 45 U/L 10/02/2017 9:30 AM [facility] Blood specimen (specimen) 10/02/2017 8:50 AM ETHYLENE PLANT OPERATOR 10/02/2017 9:08 AM ETHYLENE PLANT OPERATOR Chip Urbina MD LAB - BLOOD ORD ERABLES [facility] [address] [place] [address], [facility] [phone] from Last 3 Months or Most Recently Relevant to Health Maintenance Care Teams Water Aerobics Instructor Relationship Specialty Start Date End Date Yuan Lira PA-C [facility] & [address] [place], [place] [id number] PCP - General 10/08/21
== END 2024-03-03 09:18 | disposition home or self-care (01) ==
LOC: WOUND 09:17
PROVIDERS: PCP Physician Assistant Medical; Visit Provider Nurse Practitioner Family
DX: E11.622 Type 2 diabetes mellitus with other skin ulcer (principal); E11.42 Type 2 diabetes mellitus with diabetic polyneuropathy; L97.822 Non-pressure chronic ulcer of other part of left lower leg with fat layer exposed
CPT/HCPCS: 11042

== ENCOUNTER 2024-03-17 09:28 | Outpatient (CLI) | payer BC, SELFPAY | END 2024-03-17 09:29 | disposition home or self-care (01) | LOC: WOUND 09:28 | PROVIDERS: PCP Physician Assistant Medical; Visit Provider Nurse Practitioner Family | DX: E11.622 Type 2 diabetes mellitus with other skin ulcer (principal); E11.42 Type 2 diabetes mellitus with diabetic polyneuropathy; L97.822 Non-pressure chronic ulcer of other part of left lower leg with fat layer exposed; Z79.84 Long term (current) use of oral hypoglycemic drugs | CPT/HCPCS: 11042; 87070; 87186 ==

== ENCOUNTER 2024-03-22 11:16 | Outpatient (CLI) | payer BC, SELFPAY | END 2024-03-22 11:17 | disposition home or self-care (01) | PROVIDERS: PCP Physician Assistant Medical; Referring Provider Physician Assistant Medical; Visit Provider Physician Assistant Medical | DX: F41.9 Anxiety disorder, unspecified (principal); F32.A Depression, unspecified; I10 Essential (primary) hypertension; E11.9 Type 2 diabetes mellitus without complications; R79.89 Other specified abnormal findings of blood chemistry; E03.9 Hypothyroidism, unspecified; E78.5 Hyperlipidemia, unspecified; E78.2 Mixed hyperlipidemia | CPT/HCPCS: 80053; 80061; 84443 ==

== ENCOUNTER 2024-03-24 09:18 | Outpatient (CLI) | payer BC, SELFPAY | END 2024-03-24 09:19 | disposition home or self-care (01) | LOC: WOUND 09:18 | PROVIDERS: PCP Physician Assistant Medical; Visit Provider Nurse Practitioner Family | DX: E11.622 Type 2 diabetes mellitus with other skin ulcer (principal); E11.42 Type 2 diabetes mellitus with diabetic polyneuropathy; L97.822 Non-pressure chronic ulcer of other part of left lower leg with fat layer exposed | CPT/HCPCS: 11042 ==

== ENCOUNTER 2024-04-07 09:31 | Outpatient (CLI) | payer BC, SELFPAY | END 2024-04-07 09:32 | disposition home or self-care (01) | LOC: WOUND 09:31 | PROVIDERS: PCP Physician Assistant Medical; Visit Provider Nurse Practitioner Family | DX: E11.622 Type 2 diabetes mellitus with other skin ulcer (principal); E11.42 Type 2 diabetes mellitus with diabetic polyneuropathy; L97.822 Non-pressure chronic ulcer of other part of left lower leg with fat layer exposed | CPT/HCPCS: 11042 ==

== ENCOUNTER 2024-04-14 09:24 | Outpatient (CLI) | payer BC, SELFPAY ==
--- OUTSIDE RECORDS SUMMARY | 2024-04-14 09:26 | XMS_ITS | Encounter Summary ---
Author Organization [place] Address [address] [place] [address] Care Team Providers Care On Site Wastewater Systems Technician Name Role Phone Yuan Lira PA-C Primary Care Provider [phone] Encounter Details Date Type Department Care Team [...] COVID-19? No / Unsure 10/08/2021 9:20 AM WORKFORCE MANAGEMENT CONSULTANT documented as of this encounter Plan of Treatment Not on file documented as of this encounter Visit Diagnoses Not on filedocumented in this encounter Care Teams On Site Wastewater Systems Technician Relationship Specialty Start Date End Date Yuan Lira PA-C [facility] [place] [address] [place] [address] PCP - General 10/08/21 documented as of this encounter
--- OUTSIDE RECORDS SUMMARY | 2024-04-14 09:26 | XMS_ITS | Clinical Summary ---
Author Organization [email or web address] Address [place], [place] [address] Care Team Providers Care Driver/Guide Name Role Phone Pcp, No Primary Care [...] 04/2014 and 07/2014. November 2014: EMG at [place], showed Moderate right and mild left Carpal [...] 2 Maternal Grandmother Mother (Age 63) think [place]? Paternal Grandmother Sister Social History Tobacco Use [...] 12/02/2015, Additional history exists COVID-19 vaccine series ( season) 2024 Influenza for age 50-64 04/09/2024 07/07/2016 Tetanus booster 03/11/2025 03/11/2015, 11/07, 07/11/2004 HIV for age 15-65 Completed 03/31/2012 Hepatitis C screening for age 18-79 Completed 03/31/2012 Tdap Completed 03/11/2015 Pneumococcal series for age 6-64 Aged Out No longer eligible based on patient's age to complete this topic Procedures Procedure Name Priority Date/Time Associated Diagnosis Comments MARINE WATER TENDER THIN PREP PAP DIAGNOSTIC IMAGED Routine 02/12/2016 [...] Recently Relevant to Health Maintenance Results * MARINE WATER TENDER THIN PREP PAP DIAGNOSTIC IMAGED (02/12/2016 11:48 AM CDT) MARINE WATER TENDER CYTOLOGY See Anatomic Pathology case 02/13/2016 12:00 PM CDT [facility]ORAT[facility] Other (Cervical) Non-Blood / Unknown 02/12/2016 11:48 AM CDT 02/12/2016 11:48 AM CDT Micaela Lainez DO PATHOLOGY/CYTOLOGY [facility] [address] [place] [address], * OCCULT BLOOD IFOBT STOOL (02/12/2016 8:40 AM CDT) STOOL BLOOD ,IFOBT Negative Negative 02/12/2016 11:08 AM CDT [facility] Stool STOOL SPECIMEN / Unknown Non-Blood / Unknown 02/12/2016 8:40 AM CDT 02/12/2016 11:01 AM CDT Micaela Lainez DO LAB[place]ATORY [facility] [address] [place] [address], * (ABNORMAL) LIPID PANEL W REFLEX MEASURED LDL (01/17/2016 7:24 AM CDT) CHOLESTEROL,TOTAL 242(H) 100 - 199 mg/dL 01/17/2016 4:59 PM CDT [facility] TRAL LABORATORY TRIGLYCERIDES 326(H) <150 mg/dL 01/17/2016 4:59 PM CDT [facility] HDL CHOLESTEROL 35(L) >40 mg/dL 01/17/2016 4:59 PM CDT [facility] NON-HDL CHOLESTEROL 207(H) <145 mg/dl 01/17/2016 4:59 PM CDT [facility] CHOL/HDL RATIO 6.91(H) <4.50 01/17/2016 4:59 PM CDT [facility] LDL CHOLESTEROL 142(H) <=130 mg/dL 01/17/2016 4:59 PM CDT [facility] TR[facility] PATIENT STATUS FASTING 01/17/2016 4:59 PM CDT [facility] Blood specimen (specimen) BLOOD SPECIMEN / Unknown Venipuncture / Unknown 01/17/2016 7:24 AM CDT 01/17/2016 7:25 AM CDT Saima Mayo MD CHEMISTRY [facility] [address] [place] [address], * ANTI HCV (03/31/2012 3:19 PM CDT) ANTI HCV Non-reacti ve [facility] Blood specimen (specimen) BLOOD SPECIMEN / Unknown 03/31/2012 3:19 PM CDT 03/31/2012 3:18 PM CDT Cinthia Joya MD SEND OUTS [facility] [place]NAL ZIP [address] [place] [address] * ANTI HIV 1/2 (03/31/2012 3:19 PM CDT) ANTI HIV 1/2 Non-reacti ve [facility] Blood specimen (specimen) BLOOD SPECIMEN / Unknown 03/31/2012 3:19 PM CDT 03/31/2012 3:18 PM CDT Cinthia Joya MD SEND OUTS [facility] [place]NAL ZIP [address] [place] [address] * XR MAMMO SCREENING BILATERAL (09/18/2010) Anatomical Region Laterality Modality BREASTS, Breast Left, Breast Right Bilateral Other Cinthia Joya MD MAMMO from Last 3 Months or Most Recently Relevant to Health Maintenance Care Teams Driver/Guide Relationship Specialty Start Date End Date Pcp, No . PCP - General 08/24/19
--- OUTSIDE RECORDS SUMMARY | 2024-04-14 09:26 | XMS_ITS | Referral Summary ---
Author Organization [place] Address [address] [place] [address] Care Team Providers Care Wrapper Stripper Name Role Phone Yuan Lira PA-C Primary Care Provider [phone] Allergies Active Allergy Reactions Criticality Noted Date [...] Comments Blood Pressure 113/67 10/08/2021 11:15 AM RN HOSPICE Pulse 69 10/08/2021 11:15 AM RN HOSPICE Temperature 36.9 ??C (98.4 ??F) 10/08/2021 9:25 AM CS T Respiratory Rate 18 10/08/2021 9:25 AM RN HOSPICE Oxygen Saturation 97% 10/08/2021 11: 15 AM RN HOSPICE Inhaled Oxygen Concentration - - Weight 74.8 kg (164 lb 14.5 oz) 022 10:08 AM RN HOSPICE Height 157.5 cm (5' 2) 10/02/2017 9:05 AM RN [facility] Body Mass Index 30.16 10/02/2017 9:05 AM RN HOSPICE Plan of Treatment Not on file Procedures Procedure Name Priority Date/Time Associated Diagnosis Comments COMPREHENSIVE METABOLIC PANEL STAT 10/02/2017 8:50 AM RN [facility]OSPICE from Last 3 Months or Most Recently Relevant to Health Maintenance Results * (ABNORMAL) Comprehensive metabolic panel (10/02/2017 8:50 AM RN [facility]) Sodium 138 133 - 144 mmol/L 10/02/2017 9:30 AM [facility] Potassium 3.3(L) 3.4 - 5.3 mmol/L 10/02/2017 9:30 AM [facility] Chloride 103 94 - 109 mmol/L 10/02/2017 9:30 AM [facility] Carbon Dioxide 31 20 - 32 mmol/L 10/02/2017 9:30 AM [facility] Anion Gap 4 3 - 14 mmol/L 10/02/2017 9:30 AM [facility] Glucose 82 70 - 99 mg/dL 10/02/2017 9:30 AM [facility] Urea Nitrogen 14 7 - 30 mg/dL 10/02/2017 9:30 AM [facility] Creatinine 0.79 0.52 - 1.04 mg/dL 10/02/2017 9:30 AM [facility] GFR Estimate 76 >60 mL/min/1.7 m2 10/02/2017 9:30 AM [facility] Comment:Non GFR Calc GFR Estimate If Black >90 >60 mL/min/1.7 m2 10/02/2017 9:30 AM [facility] Comment: GFR Calc Calcium 8.8 8.5 - 10.1 mg/dL 10/02/2017 9:30 AM [facility] Bilirubin Total 0.3 0.2 - 1.3 mg/dL 10/02/2017 9:30 AM [facility] Albumin 3.5 3.4 - 5.0 g/dL 10/02/2017 9:30 AM [facility] Protein Total 7.4 6.8 - 8.8 g/dL 10/02/2017 9:30 AM [facility] Alkaline Phosphatase 71 40 - 150 U/L 10/02/2017 9:30 AM [facility] ALT 54(H) 0 - 50 U/L 10/02/2017 9:30 AM [facility] AST 25 0 - 45 U/L 10/02/2017 9:30 AM [facility] Blood specimen (specimen) 10/02/2017 8:50 AM RN HOSPICE 10/02/2017 9:08 AM RN [facility] Chip Urbina MD LAB - BLOOD ORD ERABLES [facility] [address] [place] [address], [facility] [phone] from Last 3 Months or Most Recently Relevant to Health Maintenance Care Teams Wrapper Stripper Relationship Specialty Start Date End Date Yuan Lira PA-C [facility] & [address] [place], [place] [id number] PCP - General 10/08/21
--- OUTSIDE RECORDS SUMMARY | 2024-04-14 09:26 | XMS_ITS | Clinical Summary ---
Author Organization [place] Address [address] [place] [address] Care Team Providers Care Mat Making Machine Tender Name Role Phone Yuan Lira PA-C Primary Care Provider [phone] Allergies Active Allergy Reactions Criticality Noted Date [...] Comments Blood Pressure 113/67 10/08/2021 11:15 AM X RAY CONTROL EQUIPMENT REPAIRER Pulse 69 10/08/2021 11:15 AM X RAY CONTROL EQUIPMENT REPAIRER Temperature 36.9 ??C (98.4 ??F) 10/08/2021 9:25 AM CS T Respiratory Rate 18 10/08/2021 9:25 AM X RAY CONTROL EQUIPMENT REPAIRER Oxygen Saturation 97% 10/08/2021 11: 15 AM X RAY CONTROL EQUIPMENT REPAIRER Inhaled Oxygen Concentration - - Weight 74.8 kg (164 lb 14.5 oz) 022 10:08 AM X RAY CONTROL EQUIPMENT REPAIRER Height 157.5 cm (5' 2) 10/02/2017 9:05 AM X RAY CONTROL EQUIPMENT REPAIRER Body Mass Index 30.16 10/02/2017 9:05 AM X RAY CONTROL EQUIPMENT REPAIRER Plan of Treatment Health Maintenance Due Date [...] (1 of 2) 2015 GLUCOSE 10/02/2020 10/02/2017 PHQ-2 (once per calendar year) 2023 COVID-19 Vaccine (1 - 2022-2 4 season) 2024 INFLUENZA VACCINE (#1) 2024 07/07/2016 DTAP/TDAP/TD IMMUNIZATION [...] COMPREHENSIVE METABOLIC PANEL STAT 10/02/2017 8:50 AM X RAY CONTROL EQUIPMENT REPAIRER from Last 3 Months or Most Recently Relevant to Health Maintenance Results * (ABNORMAL) Comprehensive metabolic panel (10/02/2017 8:50 AM X RAY CONTROL EQUIPMENT REPAIRER) Sodium 138 133 - 144 mmol/L 10/02/2017 9:30 AM [facility] Potassium 3.3(L) 3.4 - 5.3 mmol/L 10/02/2017 9:30 AM [facility] Chloride 103 94 - 109 mmol/L 10/02/2017 9:30 AM [facility] Carbon Dioxide 31 20 - 32 mmol/L 10/02/2017 9:30 AM [facility] Anion Gap 4 3 - 14 mmol/L 10/02/2017 9:30 AM [facility] Glucose 82 70 - 99 mg/dL 10/02/2017 9:30 AM [facility] Urea Nitrogen 14 7 - 30 mg/dL 10/02/2017 9:30 AM [facility] Creatinine 0.79 0.52 - 1.04 mg/dL 10/02/2017 9:30 AM [facility] GFR Estimate 76 >60 mL/min/1.7 m2 10/02/2017 9:30 AM [facility] Comment:Non GFR Calc GFR Estimate If Black >90 >60 mL/min/1.7 m2 10/02/2017 9:30 AM [facility] Comment: GFR Calc Calcium 8.8 8.5 - 10.1 mg/dL 10/02/2017 9:30 AM [facility] Bilirubin Total 0.3 0.2 - 1.3 mg/dL 10/02/2017 9:30 AM [facility] Albumin 3.5 3.4 - 5.0 g/dL 10/02/2017 9:30 AM [facility] Protein Total 7.4 6.8 - 8.8 g/dL 10/02/2017 9:30 AM [facility] Alkaline Phosphatase 71 40 - 150 U/L 10/02/2017 9:30 AM [facility] ALT 54(H) 0 - 50 U/L 10/02/2017 9:30 AM [facility] AST 25 0 - 45 U/L 10/02/2017 9:30 AM [facility] Blood specimen (specimen) 10/02/2017 8:50 AM X RAY CONTROL EQUIPMENT REPAIRER 10/02/2017 9:08 AM X RAY CONTROL EQUIPMENT REPAIRER Chip Urbina MD LAB - BLOOD ORD ERABLES [facility] [address] [place] [address], [facility] [phone] from Last 3 Months or Most Recently Relevant to Health Maintenance Care Teams Mat Making Machine Tender Relationship Specialty Start Date End Date Yuan Lira PA-C [address] [place] [address] PCP - General 10/08/21
--- OUTSIDE RECORDS SUMMARY | 2024-04-14 09:26 | XMS_ITS | Clinical Summary ---
Author Organization [facility] Address [address], [place] [address] Care Team Providers Care [place] Program Coordinator Name Role Phone No Primary/Referring, Phy Primary Care Provider Unavailable Source Comments You are receiving this document as you are listed as the primary care provider,follow-up provider, or the patient has been referred to you for consultation.This is in compliance with the Medicare and[facility] EHR Incentive Program,which states Providers who transition their patient to another setting of careor provider of care or refers their patient to another provider of care shouldprovide summary care record for each transition of care or referral. [employer] Allergies Active Allergy Reactions Criticality Noted Date [...] Comments Blood Pressure 143/91 06/29/2018 12:43 PM CONCRETE BLOCK MASON Pulse 79 06/29/2018 12:43 PM CONCRETE [employer] MASON Temperature 36.9 ??C (98.4 ??F) 06/29/2018 12:[address] Respiratory Rate 20 06/29/2018 12:43 PM [employer]CR[employer]E [employer] Oxygen Saturation 96% 06/29/2018 12:43 PM CONCRETE [employer] MASON Inhaled Oxygen Concentration - - Weight 73 kg (161 lb) 06/29/2018 12:43 PM CONCRETE [employer] MASON Height 160 cm (5' 3) 06/29/2018 12:43 PM CONCRETE [employer] MASON Body Mass Index 28.52 06/29/2018 12:43 PM CONCRETE BLOCK MASON Plan of Treatment Health Maintenance Due Date Last Done Comments Cervical Cancer Screening Due 1965 Colon Cancer Screening Plan Due 1965 Hep C Screening (Preventive Services) 1965 MTM Covered 1965 Mammogram 1965 HIV Screening (Preventive Services) 1981 Adult Preventive Visit 1983 HepB (1) 1984 Cholesterol 2010 Zoster/Shingles (1 of 2) 2015 COVID-19 Vaccine (1 - 2022-2 4 season) 2024 Influenza (#1) 2024 07/07/2016 DTaP/Tdap/Td (2 - [...] age to complete this topic Care Teams [place] Program Coordinator Relationship Specialty Start Date End Date No Primary/Referring, Phy PCP - General 06/29/18
== END 2024-04-14 09:25 | disposition home or self-care (01) ==
LOC: WOUND 09:24
PROVIDERS: PCP Physician Assistant Medical; Visit Provider Nurse Practitioner Family
DX: E11.622 Type 2 diabetes mellitus with other skin ulcer (principal); E11.42 Type 2 diabetes mellitus with diabetic polyneuropathy; L97.822 Non-pressure chronic ulcer of other part of left lower leg with fat layer exposed; Z79.84 Long term (current) use of oral hypoglycemic drugs
CPT/HCPCS: 15271; Q4121

== ENCOUNTER 2024-04-21 09:31 | Outpatient (CLI) | payer BC, SELFPAY ==
--- OUTSIDE RECORDS SUMMARY | 2024-04-21 09:34 | XMS_ITS | Encounter Summary ---
Author Organization [place] Address [address] [place] [address] Care Team Providers Care Coating Mixer Name Role Phone Yuan Lira PA-C Primary Care Provider [phone] Encounter Details Date Type Department Care Team [...] COVID-19? No / Unsure 10/08/2021 9:20 AM SEO STRATEGIST documented as of this encounter Plan of Treatment Not on file documented as of this encounter Visit Diagnoses Not on filedocumented in this encounter Care Teams Coating Mixer Relationship Specialty Start Date End Date Yuan Lira PA-C [facility] [address] [place] [address] PCP - General 10/08/21 documented as of this encounter
--- OUTSIDE RECORDS SUMMARY | 2024-04-21 09:34 | XMS_ITS | Clinical Summary ---
Author Organization [facility] [facility] Address [place], [place] [address] Care Team Providers Care Drop Tester Name Role Phone Pcp, No Primary Care [...] Carpal tunnel syndrome on both sides 10/31/2014 Overview (12/06/2014): Carpal Tunnel Syndrome cortisone injections with good but temporary relief: 04/2014 and 07/2014. November 2014: EMG at [place], showed Moderate right and mild left Carpal Tunnel Syndrome changes. Depression with anxiety 07/07/2012 Rotator cuff tendonitis 08/25/2011 Overview (08/25/2011): R - work injury 07/14/11 Shoulder bursitis 08/25/2011 Overview (08/25/2011): R - work injury 07/14/11 Carcinoma in situ of cervix uteri 11/15/2006 Allergic rhinitis, cause unspecified 05/30/2006 Anorexia 05/30/2006 Unspecified essential hypertension 05/30/2006 Nausea alone 05/30/2006 Overview (05/30/2006): chronic Tobacco use disorder 05/30/2006 Esophageal reflux [...] 2 Maternal Grandmother Mother (Age 63) think [place]? Paternal Grandmother Sister Social History Tobacco Use [...] history exists COVID-19 vaccine series (2022- season) 2024 Influenza for age 50-64 04/09/2024 07/07/2016 Tetanus booster 03/11/2025 03/11/2015, 11/07, 07/11/2004 HIV for age 15-65 Completed 03/31/2012 Hepatitis C screening for age 18-79 Completed 03/31/2012 Tdap Completed 03/11/2015 Pneumococcal series for age 6-64 Aged Out No longer eligible based on patient's age to complete this topic Procedures Procedure Name Priority Date/Time Associated Diagnosis Comments DRILLER MULTIPLE SPINDLE THIN PREP PAP DIAGNOSTIC IMAGED Routine 02/12/2016 [...] Recently Relevant to Health Maintenance Results * DRILLER MULTIPLE SPINDLE THIN PREP PAP DIAGNOSTIC IMAGED (02/12/2016 11:48 AM CDT) DRILLER MULTIPLE SPINDLE CYTOLOGY See Anatomic Pathology case 02/13/2016 12:00 PM CDT [facility] TRAL LABORATORY Other (Cervical) Non-Blood / Unknown 02/12/2016 11:48 AM CDT 02/12/2016 11:48 AM CDT Micaela Lainez DO PATHOLOGY/CYTOLOGY [facility] [address] [place] [address], * OCCULT BLOOD IFOBT STOOL (02/12/2016 8:40 AM CDT) STOOL BLOOD ,IFOBT Negative Negative 02/12/2016 11:08 AM CDT [facility] Stool STOOL SPECIMEN / Unknown Non-Blood / Unknown 02/12/2016 8:40 AM CDT 02/12/2016 11:01 AM CDT Micaela Lainez DO LABORATORY [facility] [address] [place] [address], * (ABNORMAL) LIPID PANEL W REFLEX MEASURED LDL (01/17/2016 7:24 AM CDT) CHOLESTEROL,TOTAL 242(H) 100 - 199 mg/dL 01/17/2016 4:59 PM CDT [facility] TRAL LABORATORY TRIGLYCERIDES 326(H) <150 mg/dL 01/17/2016 4:59 PM CDT [facility] TR[facility] HDL CHOLESTEROL 35(L) >40 mg/dL 01/17/2016 4:59 PM CDT [facility] TR[facility] NON-HDL CHOLESTEROL 207(H) <145 mg/dl 01/17/2016 4:59 PM CDT [facility] TRAL LAB[facility]ORY CHOL/HDL RATIO 6.91(H) <4.50 01/17/2016 4:59 PM CDT [facility] TR[facility] LDL CHOLESTEROL 142(H) <=130 mg/dL 01/17/2016 4:59 PM CDT [facility] TRAL LABORATORY PATIENT STATUS FASTING 01/17/2016 4:59 PM CDT [facility] TRAL [facility] Blood specimen (specimen) BLOOD SPECIMEN / Unknown Venipuncture / Unknown 01/17/2016 7:24 AM CDT 01/17/2016 7:25 AM CDT Saima Mayo MD CHEMISTRY [facility] [address] [place] [address], * ANTI HCV (03/31/2012 3:19 PM CDT) ANTI HCV Non-reacti ve [facility] Blood specimen (specimen) BLOOD SPECIMEN / Unknown 03/31/2012 3:19 PM CDT 03/31/2012 3:18 PM CDT Cinthia Joya MD SEND OUTS [facility] LABOR[facility] INTERNAL ZIP [address] [address] [place] [address] * ANTI HIV 1/2 (03/31/2012 3:19 PM CDT) ANTI HIV 1/2 Non-reacti ve [facility] Blood specimen (specimen) BLOOD SPECIMEN / Unknown 03/31/2012 3:19 PM CDT 03/31/2012 3:18 PM CDT Cinthia Joya MD SEND OUTS [facility] INTERNAL ZIP [address] [address] [place] [id number] * XR MAMMO SCREENING BILATERAL (09/18/2010) Anatomical Region Laterality Modality BREASTS, Breast Left, Breast Right Bilateral Other Cinthia Joya MD MAMMO from Last 3 Months or Most Recently Relevant to Health Maintenance Care Teams Drop Tester Relationship Specialty Start Date End Date Pcp, No . PCP - General 08/24/19
--- OUTSIDE RECORDS SUMMARY | 2024-04-21 09:34 | XMS_ITS | Clinical Summary ---
Author Organization [facility] Address [address], [place] [address] Care Team Providers Care Personal Lines Advisor Name Role Phone No Primary/Referring, Phy Primary Care Provider Unavailable Source Comments You are receiving this document as you are listed as the primary care provider,follow-up provider, or the patient has been referred to you for consultation.This is in compliance with the Medicare and[facility] EHR Incentive Program,which states Providers who transition their patient to another setting of careor provider of care or refers their patient to another provider of care shouldprovide summary care record for each transition of care or referral. [employer] Allergies Active Allergy Reactions Criticality Noted Date [...] Comments Blood Pressure 143/91 06/29/2018 12:43 PM UTILITY SUPER[employer]OR [employer] Pulse 79 06/29/2018 12:43 PM UTILITY SUPERVISOR [employer] Temperature 36.9 ??C (98.4 ??F) 06/29/2018 12:[address] Respiratory Rate 20 06/29/2018 12:43 PM UTILITY SUPERVISOR [employer] Oxygen Saturation 96% 06/29/2018 12:43 PM UTILITY SUPERVISOR [employer] Inhaled Oxygen Concentration - - Weight 73 kg (161 lb) 06/29/2018 12:43 PM UTILITY SUPER[employer]OR [employer] Height 160 cm (5' 3) 06/29/2018 12:43 PM UTILITY SUPERVISOR [employer] Body Mass Index 28.52 06/29/2018 12:43 PM UTILITY SUPERVISOR [employer]ANT Plan of Treatment Health Maintenance Due Date [...] age to complete this topic Care Teams Personal Lines Advisor Relationship Specialty Start Date End Date No Primary/Referring, Phy PCP - General 06/29/18
--- OUTSIDE RECORDS SUMMARY | 2024-04-21 09:34 | XMS_ITS | Referral Summary ---
Author Organization [facility] Address [address] [place] [address] Care Team Providers Care Hse Advisor Name Role Phone Yuan Lira PA-C Primary Care Provider [phone] Allergies Active Allergy Reactions Criticality Noted Date [...] Comments Blood Pressure 113/67 10/08/2021 11:15 AM BIOINFORMATICIAN Pulse 69 10/08/2021 11:15 AM BIOINFORMATICIAN Temperature 36.9 ??C (98.4 ??F) 10/08/2021 9:25 AM CS T Respiratory Rate 18 10/08/2021 9:25 AM BIOINFORMATICIAN Oxygen Saturation 97% 10/08/2021 11: 15 AM BIOINFORMATICIAN Inhaled Oxygen Concentration - - Weight 74.8 kg (164 lb 14.5 oz) 022 10:08 AM BIOINFORMATICIAN Height 157.5 cm (5' 2) 10/02/2017 9:05 AM BIOINFORMATICIAN Body Mass Index 30.16 10/02/2017 9:05 AM BIOINFORMATICIAN Plan of Treatment Not on file Procedures Procedure Name Priority Date/Time Associated Diagnosis Comments COMPREHENSIVE METABOLIC PANEL STAT 10/02/2017 8:50 AM BIOINFORMATICIAN from Last 3 Months or Most Recently Relevant to Health Maintenance Results * (ABNORMAL) Comprehensive metabolic panel (10/02/2017 8:50 AM BIOINFORMATICIAN) Sodium 138 133 - 144 mmol/L 10/02/2017 9:30 AM [facility] Potassium 3.3(L) 3.4 - 5.3 mmol/L 10/02/2017 9:30 AM [facility] Chloride 103 94 - 109 mmol/L 10/02/2017 9:30 AM [facility] Carbon Dioxide 31 20 - 32 mmol/L 10/02/2017 9:30 AM [facility] Anion Gap 4 3 - 14 mmol/L 10/02/2017 9:30 AM [facility] Glucose 82 70 - 99 mg/dL 10/02/2017 9:30 AM [facility] Urea Nitrogen 14 7 - 30 mg/dL 10/02/2017 9:30 AM [facility] Creatinine 0.79 0.52 - 1.04 mg/dL 10/02/2017 9:30 AM [facility] GFR Estimate 76 >60 mL/min/1.7 m2 10/02/2017 9:30 AM [facility] Comment:Non GFR Calc GFR Estimate If Black >90 >60 mL/min/1.7 m2 10/02/2017 9:30 AM [facility] Comment: GFR Calc Calcium 8.8 8.5 - 10.1 mg/dL 10/02/2017 9:30 AM [facility] Bilirubin Total 0.3 0.2 - 1.3 mg/dL 10/02/2017 9:30 AM [facility] Albumin 3.5 3.4 - 5.0 g/dL 10/02/2017 9:30 AM [facility] Protein Total 7.4 6.8 - 8.8 g/dL 10/02/2017 9:30 AM [facility] Alkaline Phosphatase 71 40 - 150 U/L 10/02/2017 9:30 AM [facility] ALT 54(H) 0 - 50 U/L 10/02/2017 9:30 AM [facility] AST 25 0 - 45 U/L 10/02/2017 9:30 AM [facility] Blood specimen (specimen) 10/02/2017 8:50 AM BIOINFORMATICIAN 10/02/2017 9:08 AM BIOINFORMATICIAN Chip Urbina MD LAB - BLOOD ORD ERABLES [facility] [address] [place] [address], [facility] [phone] from Last 3 Months or Most Recently Relevant to Health Maintenance Care Teams Hse Advisor Relationship Specialty Start Date End Date Yuan Lira PA-C [facility] & [address] [place], [place] [id number] PCP - General 10/08/21
--- OUTSIDE RECORDS SUMMARY | 2024-04-21 09:34 | XMS_ITS | Clinical Summary ---
Author Organization [facility] Address [address] [place] [address] Care Team Providers Care Buyer Intern Name Role Phone Yuan Lira PA-C Primary Care Provider [phone] Allergies Active Allergy Reactions Criticality Noted Date [...] Comments Blood Pressure 113/67 10/08/2021 11:15 AM FOOD SERVICE TEAM MEMBER Pulse 69 10/08/2021 11:15 AM FOOD SERVICE TEAM MEMBER Temperature 36.9 ??C (98.4 ??F) 10/08/2021 9:25 AM CS T Respiratory Rate 18 10/08/2021 9:25 AM FOOD SERVICE TEAM MEMBER Oxygen Saturation 97% 10/08/2021 11: 15 AM FOOD SERVICE TEAM MEMBER Inhaled Oxygen Concentration - - Weight 74.8 kg (164 lb 14.5 oz) 022 10:08 AM FOOD SERVICE TEAM MEMBER Height 157.5 cm (5' 2) 10/02/2017 9:05 AM FOOD SERVICE TEAM MEMBER Body Mass Index 30.16 10/02/2017 9:05 AM FOOD SERVICE TEAM MEMBER Plan of Treatment Health Maintenance Due Date [...] COMPREHENSIVE METABOLIC PANEL STAT 10/02/2017 8:50 AM FOOD SERVICE TEAM MEMBER from Last 3 Months or Most Recently Relevant to Health Maintenance Results * (ABNORMAL) Comprehensive metabolic panel (10/02/2017 8:50 AM FOOD SERVICE TEAM MEMBER) Sodium 138 133 - 144 mmol/L 10/02/2017 9:30 AM [facility] Potassium 3.3(L) 3.4 - 5.3 mmol/L 10/02/2017 9:30 AM [facility] Chloride 103 94 - 109 mmol/L 10/02/2017 9:30 AM [facility] Carbon Dioxide 31 20 - 32 mmol/L 10/02/2017 9:30 AM [facility] Anion Gap 4 3 - 14 mmol/L 10/02/2017 9:30 AM [facility] Glucose 82 70 - 99 mg/dL 10/02/2017 9:30 AM [facility] Urea Nitrogen 14 7 - 30 mg/dL 10/02/2017 9:30 AM [facility] Creatinine 0.79 0.52 - 1.04 mg/dL 10/02/2017 9:30 AM [facility] GFR Estimate 76 >60 mL/min/1.7 m2 10/02/2017 9:30 AM [facility] Comment:Non GFR Calc GFR Estimate If Black >90 >60 mL/min/1.7 m2 10/02/2017 9:30 AM [facility] Comment: GFR Calc Calcium 8.8 8.5 - 10.1 mg/dL 10/02/2017 9:30 AM [facility] Bilirubin Total 0.3 0.2 - 1.3 mg/dL 10/02/2017 9:30 AM [facility] Albumin 3.5 3.4 - 5.0 g/dL 10/02/2017 9:30 AM [facility] Protein Total 7.4 6.8 - 8.8 g/dL 10/02/2017 9:30 AM [facility] Alkaline Phosphatase 71 40 - 150 U/L 10/02/2017 9:30 AM [facility] ALT 54(H) 0 - 50 U/L 10/02/2017 9:30 AM [facility] AST 25 0 - 45 U/L 10/02/2017 9:30 AM [facility] Blood specimen (specimen) 10/02/2017 8:50 AM FOOD SERVICE TEAM MEMBER 10/02/2017 9:08 AM FOOD SERVICE TEAM MEMBER Chip Urbina MD LAB - BLOOD ORD ERABLES [facility] [address] [place] [address], [facility] [phone] from Last 3 Months or Most Recently Relevant to Health Maintenance Care Teams Buyer Intern Relationship Specialty Start Date End Date Yuan Lira PA-C [address] [place] [address] PCP - General 10/08/21
== END 2024-04-21 09:32 | disposition home or self-care (01) ==
LOC: WOUND 09:31
PROVIDERS: PCP Physician Assistant Medical; Visit Provider Nurse Practitioner Family
DX: E11.622 Type 2 diabetes mellitus with other skin ulcer (principal); E11.42 Type 2 diabetes mellitus with diabetic polyneuropathy; L97.822 Non-pressure chronic ulcer of other part of left lower leg with fat layer exposed
CPT/HCPCS: 97597

== ENCOUNTER 2024-04-28 09:22 | Outpatient (CLI) | payer BC, SELFPAY ==
--- OUTSIDE RECORDS SUMMARY | 2024-04-28 09:25 | XMS_ITS | Clinical Summary ---
Author Organization [facility] Address [address], [place] [address] Care Team Providers Care Tar Heater Operator Name Role Phone No Primary/Referring, Phy Primary Care Provider Unavailable Source Comments You are receiving this document as you are listed as the primary care provider,follow-up provider, or the patient has been referred to you for consultation.This is in compliance with the Medicare and[facility] EHR Incentive Program,which states Providers who transition their patient to another setting of careor provider of care or refers their patient to another provider of care shouldprovide summary care record for each transition of care or referral. [employer] Allergies Active Allergy Reactions Criticality Noted Date [...] Comments Blood Pressure 143/91 06/29/2018 12:43 PM AIRFRAME TECHNICAL OFFICER Pulse 79 06/29/2018 12:43 PM AIRFRAME TECHNICAL OFFICER Temperature 36.9 ??C (98.4 ??F) 06/29/2018 12:[address] Respiratory Rate 20 06/29/2018 12:43 PM AIRFRAME TECHNICAL OFFICER Oxygen Saturation 96% 06/29/2018 12:43 PM AIRFRAME TECHNICAL OFFICER Inhaled Oxygen Concentration - - Weight 73 kg (161 lb) 06/29/2018 12:43 PM AIRFRAME TECHNICAL OFFICER Height 160 cm (5' 3) 06/29/2018 12:43 PM AIRFRAME TECHNICAL OFFICER Body Mass Index 28.52 06/29/2018 12:43 PM AIRFRAME TECHNICAL OFFICER Plan of Treatment Health Maintenance Due Date Last Done Comments Cervical Cancer Screening Due 1965 Colon Cancer Screening Plan Due 1965 Hep C Screening (Preventive Services) 1965 MTM Covered 1965 Mammogram 1965 HIV Screening (Preventive Services) 1981 Adult Preventive Visit 1983 HepB (1) 1984 Cholesterol 2010 Zoster/Shingles (1 of 2) 2015 COVID-19 Vaccine (1 - 2023-2 5 season) 2024 Influenza (#1) 2024 07/07/2016 DTaP/Tdap/Td [...] age to complete this topic Care Teams Tar Heater Operator Relationship Specialty Start Date End Date No Primary/Referring, Phy PCP - General 06/29/18
--- OUTSIDE RECORDS SUMMARY | 2024-04-28 09:25 | XMS_ITS | Clinical Summary ---
Author Organization [facility] Address [address] [place] [address] Care Team Providers Care Belt Lacer Name Role Phone Yuan Lira PA-C Primary Care Provider [phone] Allergies Active Allergy Reactions Criticality Noted Date [...] Comments Blood Pressure 113/67 10/08/2021 11:15 AM NAIL FEEDER Pulse 69 10/08/2021 11:15 AM NAIL FEEDER Temperature 36.9 ??C (98.4 ??F) 10/08/2021 9:25 AM CS T Respiratory Rate 18 10/08/2021 9:25 AM NAIL FEEDER Oxygen Saturation 97% 10/08/2021 11: 15 AM NAIL FEEDER Inhaled Oxygen Concentration - - Weight 74.8 kg (164 lb 14.5 oz) 022 10:08 AM NAIL FEEDER Height 157.5 cm (5' 2) 10/02/2017 9:05 AM NAIL FEEDER Body Mass Index 30.16 10/02/2017 9:05 AM NAIL FEEDER Plan of Treatment Health Maintenance Due Date [...] calendar year) 2023 COVID-19 Vaccine (1 - 2023-2 5 season) 2024 INFLUENZA VACCINE (#1) 2024 07/07/2016 [...] COMPREHENSIVE METABOLIC PANEL STAT 10/02/2017 8:50 AM NAIL FEEDER from Last 3 Months or Most Recently Relevant to Health Maintenance Results * (ABNORMAL) Comprehensive metabolic panel (10/02/2017 8:50 AM NAIL FEEDER) Sodium 138 133 - 144 mmol/L 10/02/2017 [...] CENTER Blood specimen (specimen) 10/02/2017 8:50 AM NAIL FEEDER 10/02/2017 9:08 AM NAIL FEEDER Chip Urbina MD LAB - BLOOD ORD ERABLES [facility] [address] [place] [address], [facility] [phone] from Last 3 Months or Most Recently Relevant to Health Maintenance Care Teams Belt Lacer Relationship Specialty Start Date End Date Yuan Lira PA-C [address] [place] [address] PCP - General 10/08/21
--- OUTSIDE RECORDS SUMMARY | 2024-04-28 09:25 | XMS_ITS | Encounter Summary ---
Author Organization [facility] Address [address] [place] [address] Care Team Providers Care Auger Press Operator Name Role Phone Yuan Lira PA-C Primary Care Provider [phone] Encounter Details Date Type Department Care Team [...] COVID-19? No / Unsure 10/08/2021 9:20 AM REPAIRER KILN CAR documented as of this encounter Plan of Treatment Not on file documented as of this encounter Visit Diagnoses Not on filedocumented in this encounter Care Teams Auger Press Operator Relationship Specialty Start Date End Date Yuan Lira PA-C [facility] [address] [facility] [place] [address] PCP - General 10/08/21 documented as of this encounter
--- OUTSIDE RECORDS SUMMARY | 2024-04-28 09:25 | XMS_ITS | Referral Summary ---
Author Organization [facility] Address [address] [place] [address] Care Team Providers Care Front Elevator Operator Name Role Phone Yuan Lira PA-C Primary Care Provider [phone] Allergies Active Allergy Reactions Criticality Noted Date [...] Comments Blood Pressure 113/67 10/08/2021 11:15 AM DRYING TUMBLER OPERATOR Pulse 69 10/08/2021 11:15 AM DRYING TUMBLER OPERATOR Temperature 36.9 ??C (98.4 ??F) 10/08/2021 9:25 AM CS T Respiratory Rate 18 10/08/2021 9:25 AM DRYING TUMBLER OPERATOR Oxygen Saturation 97% 10/08/2021 11: 15 AM DRYING TUMBLER OPERATOR Inhaled Oxygen Concentration - - Weight 74.8 kg (164 lb 14.5 oz) 022 10:08 AM DRYING TUMBLER OPERATOR Height 157.5 cm (5' 2) 10/02/2017 9:05 AM DRYING TUMBLER OPERATOR Body Mass Index 30.16 10/02/2017 9:05 AM DRYING TUMBLER OPERATOR Plan of Treatment Not on file Procedures Procedure Name Priority Date/Time Associated Diagnosis Comments COMPREHENSIVE METABOLIC PANEL STAT 10/02/2017 8:50 AM DRYING TUMBLER OPERATOR from Last 3 Months or Most Recently Relevant to Health Maintenance Results * (ABNORMAL) Comprehensive metabolic panel (10/02/2017 8:50 AM DRYING TUMBLER OPERATOR) Sodium 138 133 - 144 mmol/L 10/02/2017 9:30 AM [facility] Potassium 3.3(L) 3.4 - 5.3 mmol/L 10/02/2017 9:30 AM [facility] Chloride 103 94 - 109 mmol/L 10/02/2017 9:30 AM [facility] Carbon Dioxide 31 20 - 32 mmol/L 10/02/2017 9:30 AM [facility] Anion Gap 4 3 - 14 mmol/L 10/02/2017 9:30 AM [facility] Glucose 82 70 - 99 mg/dL 10/02/2017 9:30 AM [facility] Urea Nitrogen 14 7 - 30 mg/dL 10/02/2017 9:30 AM [facility] Creatinine 0.79 0.52 - 1.04 mg/dL 10/02/2017 9:30 AM [facility] GFR Estimate 76 >60 mL/min/1.7 m2 10/02/2017 9:30 AM [facility] Comment:Non GFR Calc GFR Estimate If Black >90 >60 mL/min/1.7 m2 10/02/2017 9:30 AM [facility] Comment: GFR Calc Calcium 8.8 8.5 - 10.1 mg/dL 10/02/2017 9:30 AM [facility] Bilirubin Total 0.3 0.2 - 1.3 mg/dL 10/02/2017 9:30 AM [facility] Albumin 3.5 3.4 - 5.0 g/dL 10/02/2017 9:30 AM [facility] Protein Total 7.4 6.8 - 8.8 g/dL 10/02/2017 9:30 AM [facility] Alkaline Phosphatase 71 40 - 150 U/L 10/02/2017 9:30 AM [facility] ALT 54(H) 0 - 50 U/L 10/02/2017 9:30 AM [facility] AST 25 0 - 45 U/L 10/02/2017 9:30 AM [facility] Blood specimen (specimen) 10/02/2017 8:50 AM DRYING TUMBLER OPERATOR 10/02/2017 9:08 AM DRYING TUMBLER OPERATOR Chip Urbina MD LAB - BLOOD ORD ERABLES [facility] [address] [place] [address], [facility] [phone] from Last 3 Months or Most Recently Relevant to Health Maintenance Care Teams Front Elevator Operator Relationship Specialty Start Date End Date Yuan iLra PA-C [facility] & [address] [place], [place] [phone] PCP - General 10/08/21
--- OUTSIDE RECORDS SUMMARY | 2024-04-28 09:25 | XMS_ITS | Clinical Summary ---
Author Organization [facility] Address [place], [place] [address] Care Team Providers Care Concreting Supervisor Name Role Phone Pcp, No Primary [...] 04/2014 and 07/2014. November 2014: EMG at [facility], showed Moderate right and mild left Carpal [...] 2 Maternal Grandmother Mother (Age 63) think [place]? Paternal Grandmother Sister Social History Tobacco Use [...] Procedure Name Priority Date/Time Associated Diagnosis Comments NUTRITIONAL SERVICES COOK THIN PREP PAP DIAGNOSTIC IMAGED Routine 02/12/2016 [...] Recently Relevant to Health Maintenance Results * NUTRITIONAL SERVICES COOK THIN PREP PAP DIAGNOSTIC IMAGED (02/12/2016 11:48 AM CDT) NUTRITIONAL SERVICES COOK CYTOLOGY See Anatomic Pathology case 02/13/2016 12:00 PM CDT [facility] Other (Cervical) Non-Blood / Unknown 02/12/2016 11:48 AM CDT 02/12/2016 11:48 AM CDT Micaela Lainez DO PATHOLOGY/CYTOLOGY [facility] [address] [place] [address], * OCCULT BLOOD IFOBT STOOL (02/12/2016 8:40 AM CDT) STOOL BLOOD ,IFOBT Negative Negative 02/12/2016 11:08 AM CDT [facility] Stool STOOL SPECIMEN / Unknown Non-Blood / Unknown 02/12/2016 8:40 AM CDT 02/12/2016 11:01 AM CDT Micaela Lainez DO LABORATORY [facility] [address] [place] [address], * (ABNORMAL) LIPID PANEL W REFLEX MEASURED LDL (01/17/2016 7:24 AM CDT) CHOLESTEROL,TOTAL 242(H) 100 - 199 mg/dL 01/17/2016 4:59 PM CDT [facility] TRIGLYCERIDES 326(H) <150 mg/dL 01/17/2016 4:59 PM CDT [facility] HDL CHOLESTEROL 35(L) >40 mg/dL 01/17/2016 4:59 PM CDT [facility] NON-HDL CHOLESTEROL 207(H) <145 mg/dl 01/17/2016 4:59 PM CDT [facility] CHOL/HDL RATIO 6.91(H) <4.50 01/17/2016 4:59 PM CDT [facility] LDL CHOLESTEROL 142(H) <=130 mg/dL 01/17/2016 4:59 PM CDT [facility] PATIENT STATUS FASTING 01/17/2016 4:59 PM CDT [facility] Blood specimen (specimen) BLOOD SPECIMEN / Unknown Venipuncture / Unknown 01/17/2016 7:24 AM CDT 01/17/2016 7:25 AM CDT Saima Mayo MD CHEMISTRY [facility] [address] [place] [address], * ANTI HCV (03/31/2012 3:19 PM CDT) ANTI HCV Non-reacti ve [facility] Blood specimen (specimen) BLOOD SPECIMEN / Unknown 03/31/2012 3:19 PM CDT 03/31/2012 3:18 PM CDT Cinthia Joya MD SEND OUTS [facility] INTERNAL ZIP [id number] [address] [place] [address] * ANTI HIV 1/2 (03/31/2012 3:19 PM CDT) ANTI HIV 1/2 Non-reacti ve [facility] Blood specimen (specimen) BLOOD SPECIMEN / Unknown 03/31/2012 3:19 PM CDT 03/31/2012 3:18 PM CDT Cinthia Joya MD SEND OUTS [facility] INTERNAL ZIP [address] [address] [place] [id number] * XR MAMMO SCREENING BILATERAL (09/18/2010) Anatomical Region Laterality Modality BREASTS, Breast Left, Breast Right Bilateral Other Cinthia Joya MD M[facility] from Last 3 Months or Most Recently Relevant to Health Maintenance Care Teams Concreting Supervisor Relationship Specialty Start Date End Date Pcp, No . PCP - General 08/24/19
== END 2024-04-28 09:23 | disposition home or self-care (01) ==
LOC: WOUND 09:22
PROVIDERS: PCP Physician Assistant Medical; Visit Provider Nurse Practitioner Family
DX: E11.622 Type 2 diabetes mellitus with other skin ulcer (principal); E11.42 Type 2 diabetes mellitus with diabetic polyneuropathy; L97.822 Non-pressure chronic ulcer of other part of left lower leg with fat layer exposed; Z79.84 Long term (current) use of oral hypoglycemic drugs
CPT/HCPCS: 15271; Q4121

== ENCOUNTER 2024-05-05 09:18 | Outpatient (CLI) | payer BC, SELFPAY ==
--- OUTSIDE RECORDS SUMMARY | 2024-05-05 09:20 | XMS_ITS | Clinical Summary ---
Author Organization [facility] Address [address], [place] [address] Care Team Providers Care Venetian Blind Mechanic Name Role Phone No Primary/Referring, Phy Primary Care Provider Unavailable Source Comments You are receiving this document as you are listed as the primary care provider,follow-up provider, or the patient has been referred to you for consultation.This is in compliance with the Medicare and[facility] EHR Incentive Program,which states Providers who transition their patient to another setting of careor provider of care or refers their patient to another provider of care shouldprovide summary care record for each transition of care or referral. [employer] Allergies Active Allergy Reactions Criticality Noted Date [...] Comments Blood Pressure 143/91 06/29/2018 12:43 PM TOOL SHARPENER Pulse 79 06/29/2018 12:43 PM TOOL SHARPENER Temperature 36.9 ??C (98.4 ??F) 06/29/2018 12:[address] Respiratory Rate 20 06/29/2018 12:43 PM TOOL SHARPENER Oxygen Saturation 96% 06/29/2018 12:43 PM TOOL SHARPENER Inhaled Oxygen Concentration - - Weight 73 kg (161 lb) 06/29/2018 12:43 PM TOOL SHARPENER Height 160 cm (5' 3) 06/29/2018 12:43 PM TOOL SHARPENER Body Mass Index 28.52 06/29/2018 12:43 PM TOOL SHARPENER Plan of Treatment Health Maintenance Due Date [...] age to complete this topic Care Teams Venetian Blind Mechanic Relationship Specialty Start Date End Date No Primary/Referring, Erviny PCP - General 06/29/18
--- OUTSIDE RECORDS SUMMARY | 2024-05-05 09:21 | XMS_ITS | Encounter Summary ---
Author Organization [facility] Address [address] [place] [address] Care Team Providers Care Manager Battery Name Role Phone Yuan Lira PA-C Primary Care Provider [phone] Encounter Details Date Type Department Care Team [...] COVID-19? No / Unsure 10/08/2021 9:20 AM PARTICLE BOARD SUPERVISOR documented as of this encounter Plan of Treatment Not on file documented as of this encounter Visit Diagnoses Not on filedocumented in this encounter Care Teams Manager Battery Relationship Specialty Start Date End Date Yuan Lira PA-C [facility] [address] [place] [address] PCP - General 10/08/21 documented as of this encounter
--- OUTSIDE RECORDS SUMMARY | 2024-05-05 09:21 | XMS_ITS | Referral Summary ---
Author Organization [facility] Address [address] [place] [address] Care Team Providers Care Nickel Plant Operator Name Role Phone Yuan Lira PA-C [...] Comments Blood Pressure 113/67 10/08/2021 11:15 AM VENDING MACHINE TECHNICIAN Pulse 69 10/08/2021 11:15 AM VENDING MACHINE TECHNICIAN Temperature 36.9 ??C (98.4 ??F) 10/08/2021 9:25 AM CS T Respiratory Rate 18 10/08/2021 9:25 AM VENDING MACHINE TECHNICIAN Oxygen Saturation 97% 10/08/2021 11: 15 AM VENDING MACHINE TECHNICIAN Inhaled Oxygen Concentration - - Weight 74.8 kg (164 lb 14.5 oz) 022 10:08 AM VENDING MACHINE TECHNICIAN Height 157.5 cm (5' 2) 10/02/2017 9:05 AM VENDING MACHINE TECHNICIAN Body Mass Index 30.16 10/02/2017 9:05 AM VENDING MACHINE TECHNICIAN Plan of Treatment Not on file Procedures Procedure Name Priority Date/Time Associated Diagnosis Comments COMPREHENSIVE METABOLIC PANEL STAT 10/02/2017 8:50 AM VENDING MACHINE TECHNICIAN from Last 3 Months or Most Recently Relevant to Health Maintenance Results * (ABNORMAL) Comprehensive metabolic panel (10/02/2017 8:50 AM VENDING MACHINE TECHNICIAN) Sodium 138 133 - 144 mmol/L 10/02/2017 9:30 AM [facility] Potassium 3.3(L) 3.4 - 5.3 mmol/L 10/02/2017 9:30 AM [facility] Chloride 103 94 - 109 mmol/L 10/02/2017 9:30 AM [facility] Carbon Dioxide 31 20 - 32 mmol/L 10/02/2017 9:30 AM [facility] Anion Gap 4 3 - 14 mmol/L 10/02/2017 9:30 AM [facility] Glucose 82 70 - 99 mg/dL 10/02/2017 9:30 AM [facility] Urea Nitrogen 14 7 - 30 mg/dL 10/02/2017 9:30 AM [facility] Creatinine 0.79 0.52 - 1.04 mg/dL 10/02/2017 9:30 AM [facility] GFR Estimate 76 >60 mL/min/1.7 m2 10/02/2017 9:30 AM [facility] Comment:Non GFR Calc GFR Estimate If Black >90 >60 mL/min/1.7 m2 10/02/2017 9:30 AM [facility] Comment: GFR Calc Calcium 8.8 8.5 - 10.1 mg/dL 10/02/2017 9:30 AM [facility] Bilirubin Total 0.3 0.2 - 1.3 mg/dL 10/02/2017 9:30 AM [facility] Albumin 3.5 3.4 - 5.0 g/dL 10/02/2017 9:30 AM [facility] Protein Total 7.4 6.8 - 8.8 g/dL 10/02/2017 9:30 AM [facility] Alkaline Phosphatase 71 40 - 150 U/L 10/02/2017 9:30 AM [facility] ALT 54(H) 0 - 50 U/L 10/02/2017 9:30 AM [facility] AST 25 0 - 45 U/L 10/02/2017 9:30 AM [facility] Blood specimen (specimen) 10/02/2017 8:50 AM VENDING MACHINE TECHNICIAN 10/02/2017 9:08 AM VENDING MACHINE TECHNICIAN Chip Urbina MD LAB - BLOOD ORD ERABLES [facility] [address] [place] [address], [facility] [phone] from Last 3 Months or Most Recently Relevant to Health Maintenance Care Teams Nickel Plant Operator Relationship Specialty Start Date End Date Yuan Lira PA-C [facility] & [address] [place], [place] [id number] PCP - General 10/08/21
--- OUTSIDE RECORDS SUMMARY | 2024-05-05 09:21 | XMS_ITS | Clinical Summary ---
Author Organization [facility] Address [address] [place] [address] Care Team Providers Care Cardiopulmonary Technologist Name Role Phone Yuan Lira PA-C Primary Care Provider [phone] Allergies Active Allergy Reactions Criticality Noted Date [...] Comments Blood Pressure 113/67 10/08/2021 11:15 AM MICROWAVE OV[employer] ASSEMBLER Pulse 69 10/08/2021 11:15 AM MICROWAVE OVEN ASSEMBLER Temperature 36.9 ??C (98.4 ??F) 10/08/2021 9:25 AM CS T Respiratory Rate 18 10/08/2021 9:25 AM [employer]SEMBL[employer] Oxygen Saturation 97% 10/08/2021 11: 15 AM [employer]OW[employer] OV[employer] ASSEMBLER Inhaled Oxygen Concentration - - Weight 74.8 kg (164 lb 14.5 oz) 022 10:08 AM [employer]OW[employer] OVEN ASSEMBLER Height 157.5 cm (5' 2) 10/02/2017 9:05 AM [employer] OV[employer] ASSEMBLER Body Mass Index 30.16 10/02/2017 9:05 AM [employer] OVEN ASSEMBLER Plan of Treatment Health Maintenance Due Date [...] COMPREHENSIVE METABOLIC PANEL STAT 10/02/2017 8:50 AM MICROWAVE OVEN ASSEMBLER from Last 3 Months or Most Recently Relevant to Health Maintenance Results * (ABNORMAL) Comprehensive metabolic panel (10/02/2017 8:50 AM MICROWAVE OVEN ASSEMBLER) Sodium 138 133 - 144 mmol/L 10/02/2017 9:30 AM [facility] Potassium 3.3(L) 3.4 - 5.3 mmol/L 10/02/2017 9:30 AM [facility] Chloride 103 94 - 109 mmol/L 10/02/2017 9:30 AM [facility] Carbon Dioxide 31 20 - 32 mmol/L 10/02/2017 9:30 AM [facility] Anion Gap 4 3 - 14 mmol/L 10/02/2017 9:30 AM [facility] Glucose 82 70 - 99 mg/dL 10/02/2017 9:30 AM [facility] Urea Nitrogen 14 7 - 30 mg/dL 10/02/2017 9:30 AM [facility] Creatinine 0.79 0.52 - 1.04 mg/dL 10/02/2017 9:30 AM [facility] GFR Estimate 76 >60 mL/min/1.7 m2 10/02/2017 9:30 AM [facility] Comment:Non GFR Calc GFR Estimate If Black >90 >60 mL/min/1.7 m2 10/02/2017 9:30 AM [facility] Comment: GFR Calc Calcium 8.8 8.5 - 10.1 mg/dL 10/02/2017 9:30 AM [facility] Bilirubin Total 0.3 0.2 - 1.3 mg/dL 10/02/2017 9:30 AM [facility] Albumin 3.5 3.4 - 5.0 g/dL 10/02/2017 9:30 AM [facility] Protein Total 7.4 6.8 - 8.8 g/dL 10/02/2017 9:30 AM [facility] Alkaline Phosphatase 71 40 - 150 U/L 10/02/2017 9:30 AM [facility] ALT 54(H) 0 - 50 U/L 10/02/2017 9:30 AM [facility] AST 25 0 - 45 U/L 10/02/2017 9:30 AM [facility] Blood specimen (specimen) 10/02/2017 8:50 AM MI[employer]OWAVE OVEN ASSEMBLER 10/02/2017 9:08 AM MICROWAVE OVEN ASSEMBLER Chip Urbina MD LAB - BLOOD ORD ERABLES [facility] [address] [place] [address], [facility] [phone] from Last 3 Months or Most Recently Relevant to Health Maintenance Care Teams Cardiopulmonary Technologist Relationship Specialty Start Date End Date Yuan Lira PA-C [address] [place] [address] PCP - General 10/08/21
--- OUTSIDE RECORDS SUMMARY | 2024-05-05 09:21 | XMS_ITS | Clinical Summary ---
Author Organization [facility] Address [place], [place] [address] Care Team Providers Care Equipment Records Supervisor Name Role Phone Pcp, No Primary [...] 04/2014 and 07/2014. November 2014: EMG at [place], showed Moderate right and mild left Carpal [...] 2 Maternal Grandmother Mother (Age 63) think [place]? Paternal Grandmother Sister Social History Tobacco Use [...] 12/02/2015, Additional history exists COVID-19 vaccine series (2023- season) 2024 Influenza for age 50-64 04/09/2024 07/07/2016 Tetanus booster 03/11/2025 03/11/2015, 11/07, 07/11/2004 HIV for age 15-65 Completed 03/31/2012 Hepatitis C screening for age 18-79 Completed 03/31/2012 Tdap Completed 03/11/2015 Pneumococcal series for age 6-64 Aged Out No longer eligible based on patient's age to complete this topic Procedures Procedure Name Priority Date/Time Associated Diagnosis Comments GRINDING MACHINE TENDER THIN PREP PAP DIAGNOSTIC IMAGED Routine [...] Recently Relevant to Health Maintenance Results * GRINDING MACHINE TENDER THIN PREP PAP DIAGNOSTIC IMAGED (02/12/2016 11:48 AM CDT) GRINDING MACHINE TENDER CYTOLOGY See Anatomic Pathology case 02/13/2016 12:00 PM CDT [facility] Other (Cervical) Non-Blood / Unknown 02/12/2016 11:48 AM CDT 02/12/2016 11:48 AM CDT Micaela Lainez DO PATHOLOGY/CYTOLOGY [facility] [address] [place] [address], * OCCULT BLOOD IFOBT STOOL (02/12/2016 8:40 AM CDT) STOOL BLOOD ,IFOBT Negative Negative 02/12/2016 11:08 AM CDT [facility] Stool STOOL SPECIMEN / Unknown Non-Blood / Unknown 02/12/2016 8:40 AM CDT 02/12/2016 11:01 AM CDT Micaela Lainez DO LABORATORY [facility] [address] [place] [address], * (ABNORMAL) LIPID PANEL W REFLEX MEASURED LDL (01/17/2016 7:24 AM CDT) CHOLESTEROL,TOTAL 242(H) 100 - 199 mg/dL 01/17/2016 4:59 PM CDT [facility] TRIGLYCERIDES 326(H) <150 mg/dL 01/17/2016 4:59 PM CDT [facility] HDL CHOLESTEROL 35(L) >40 mg/dL 01/17/2016 4:59 PM CDT [facility] NON-HDL CHOLESTEROL 207(H) <145 mg/dl 01/17/2016 4:59 PM CDT [facility] CHOL/HDL RATIO 6.91(H) <4.50 01/17/2016 4:59 PM CDT [facility] LDL CHOLESTEROL 142(H) <=130 mg/dL 01/17/2016 4:59 PM CDT [facility] PATIENT STATUS FASTING 01/17/2016 4:59 PM CDT [facility] Blood specimen (specimen) BLOOD SPECIMEN / Unknown Venipuncture / Unknown 01/17/2016 7:24 AM CDT 01/17/2016 7:25 AM CDT Saima Mayo MD CHEMISTRY [facility] [address] [place] [address], * ANTI HCV (03/31/2012 3:19 PM CDT) ANTI HCV Non-reacti ve [facility] Blood specimen (specimen) BLOOD SPECIMEN / Unknown 03/31/2012 3:19 PM CDT 03/31/2012 3:18 PM CDT Cinthia Joya MD SEND OUTS [facility] [place] ZIP [address] [address] [place] [address] * ANTI HIV 1/2 (03/31/2012 3:19 PM CDT) ANTI HIV 1/2 Non-reacti ve [facility] Blood specimen (specimen) BLOOD SPECIMEN / Unknown 03/31/2012 3:19 PM CDT 03/31/2012 3:18 PM CDT Cinthia Joya MD SEND OUTS [facility] INTERNAL ZIP [address] [address] [place] [id number] * XR MAMMO SCREENING BILATERAL (09/18/2010) Anatomical Region Laterality Modality BREASTS, Breast Left, Breast Right Bilateral Other Cinthia Jyoa MD MAMMO from Last 3 Months or Most Recently Relevant to Health Maintenance Care Teams Equipment Records Supervisor Relationship Specialty Start Date End Date Pcp, No . PCP - General 08/24/19
== END 2024-05-05 09:19 | disposition home or self-care (01) ==
LOC: WOUND 09:18
PROVIDERS: PCP Physician Assistant Medical; Visit Provider Nurse Practitioner Family
DX: E11.622 Type 2 diabetes mellitus with other skin ulcer (principal); E11.42 Type 2 diabetes mellitus with diabetic polyneuropathy; L97.822 Non-pressure chronic ulcer of other part of left lower leg with fat layer exposed; Z79.84 Long term (current) use of oral hypoglycemic drugs
CPT/HCPCS: 97597

== ENCOUNTER 2024-05-12 09:20 | Outpatient (CLI) | payer BC, SELFPAY ==
--- OUTSIDE RECORDS SUMMARY | 2024-05-12 09:22 | XMS_ITS | Referral Summary ---
Author Organization [facility] Address [address] [place] [address] Care Team Providers Care Rv Detailer Name Role Phone Yuan Lira PA-C Primary Care Provider [phone] Allergies Active Allergy Reactions Criticality Noted Date [...] Comments Blood Pressure 113/67 10/08/2021 11:15 AM [employer] Pulse 69 10/08/2021 11:15 AM [employer] Temperature 36.9 ??C (98.4 ??F) 10/08/2021 9:25 AM CS T Respiratory Rate 18 10/08/2021 9:25 AM [employer] Oxygen Saturation 97% 10/08/2021 11: 15 AM [employer] Inhaled Oxygen Concentration - - Weight 74.8 kg (164 lb 14.5 oz) 022 10:08 AM [employer] Height 157.5 cm (5' 2) 10/02/2017 9:05 AM [employer] Body Mass Index 30.16 10/02/2017 9:05 AM [employer] Plan of Treatment Not on file Procedures Procedure Name Priority Date/Time Associated Diagnosis Comments COMPREHENSIVE METABOLIC PANEL STAT 10/02/2017 8:50 AM [employer] from Last 3 Months or Most Recently Relevant to Health Maintenance Results * (ABNORMAL) Comprehensive metabolic panel (10/02/2017 8:50 AM [employer]) Sodium 138 133 - 144 mmol/L 10/02/2017 9:30 AM [facility] Potassium 3.3(L) 3.4 - 5.3 mmol/L 10/02/2017 9:30 AM [facility] Chloride 103 94 - 109 mmol/L 10/02/2017 9:30 AM [facility] Carbon Dioxide 31 20 - 32 mmol/L 10/02/2017 9:30 AM [facility] Anion Gap 4 3 - 14 mmol/L 10/02/2017 9:30 AM [facility] Glucose 82 70 - 99 mg/dL 10/02/2017 9:30 AM [facility] Urea Nitrogen 14 7 - 30 mg/dL 10/02/2017 9:30 AM [facility] Creatinine 0.79 0.52 - 1.04 mg/dL 10/02/2017 9:30 AM [facility] GFR Estimate 76 >60 mL/min/1.7 m2 10/02/2017 9:30 AM [facility] Comment:Non GFR Calc GFR Estimate If Black >90 >60 mL/min/1.7 m2 10/02/2017 9:30 AM [facility] Comment: GFR Calc Calcium 8.8 8.5 - 10.1 mg/dL 10/02/2017 9:30 AM [facility] Bilirubin Total 0.3 0.2 - 1.3 mg/dL 10/02/2017 9:30 AM [facility] Albumin 3.5 3.4 - 5.0 g/dL 10/02/2017 9:30 AM [facility] Protein Total 7.4 6.8 - 8.8 g/dL 10/02/2017 9:30 AM [facility] Alkaline Phosphatase 71 40 - 150 U/L 10/02/2017 9:30 AM [facility] ALT 54(H) 0 - 50 U/L 10/02/2017 9:30 AM [facility] AST 25 0 - 45 U/L 10/02/2017 9:30 AM [facility] Blood specimen (specimen) 10/02/2017 8:50 AM [employer] 10/02/2017 9:08 AM [employer] Chip Urbina MD LAB - BLOOD ORD ERABLES [facility] [address] [place] [address], [facility] [phone] from Last 3 Months or Most Recently Relevant to Health Maintenance Care Teams Rv Detailer Relationship Specialty Start Date End Date Yuan Lira PA-C [facility] & [address] [place], [place] [id number] PCP - General 10/08/21
--- OUTSIDE RECORDS SUMMARY | 2024-05-12 09:22 | XMS_ITS | Clinical Summary ---
Author Organization [facility] Address [address], [place] [address] Care Team Providers Care Event Producer Name Role Phone No Primary/Referring, Phy Primary Care Provider Unavailable Source Comments You are receiving this document as you are listed as the primary care provider,follow-up provider, or the patient has been referred to you for consultation.This is in compliance with the Medicare and[facility] EHR Incentive Program,which states Providers who transition their patient to another setting of careor provider of care or refers their patient to another provider of care shouldprovide summary care record for each transition of care or referral. [employer] Allergies Active Allergy Reactions Criticality Noted Date [...] Comments Blood Pressure 143/91 06/29/2018 12:43 PM SQL DATABASE ADMINISTRATOR Pulse 79 06/29/2018 12:43 PM SQL DATABASE ADMINISTRATOR Temperature 36.9 ??C (98.4 ??F) 06/29/2018 12:[address] Respiratory Rate 20 06/29/2018 12:43 PM SQL DATABASE ADMINISTRATOR Oxygen Saturation 96% 06/29/2018 12:43 PM SQL DATABASE ADMINISTRATOR Inhaled Oxygen Concentration - - Weight 73 kg (161 lb) 06/29/2018 12:43 PM SQL DATABASE ADMINISTRATOR Height 160 cm (5' 3) 06/29/2018 12:43 PM SQL DATABASE ADMINISTRATOR Body Mass Index 28.52 06/29/2018 12:43 PM SQL DATABASE ADMINISTRATOR Plan of Treatment Health Maintenance Due Date [...] age to complete this topic Care Teams Event Producer Relationship Specialty Start Date End Date No Primary/Referring, Erviny PCP - General 06/29/18
--- OUTSIDE RECORDS SUMMARY | 2024-05-12 09:22 | XMS_ITS | Clinical Summary ---
Author Organization [facility] Address [address] [place] [address] Care Team Providers Care Cda Teacher Name Role Phone Yuan Lira PA-C Primary Care Provider [phone] Allergies Active Allergy Reactions Criticality Noted Date [...] Comments Blood Pressure 113/67 10/08/2021 11:15 AM DISTRICT ADMINISTRATIVE ASSISTANT Pulse 69 10/08/2021 11:15 AM DISTRICT ADMINISTRATIVE ASSISTANT Temperature 36.9 ??C (98.4 ??F) 10/08/2021 9:25 AM CS T Respiratory Rate 18 10/08/2021 9:25 AM DISTRICT ADMINISTRATIVE ASSISTANT Oxygen Saturation 97% 10/08/2021 11: 15 AM DISTRICT ADMINISTRATIVE ASSISTANT Inhaled Oxygen Concentration - - Weight 74.8 kg (164 lb 14.5 oz) 022 10:08 AM DISTRICT ADMINISTRATIVE ASSISTANT Height 157.5 cm (5' 2) 10/02/2017 9:05 AM DISTRICT ADMINISTRATIVE ASSISTANT Body Mass Index 30.16 10/02/2017 9:05 AM DISTRICT ADMINISTRATIVE ASSISTANT Plan of Treatment Health Maintenance Due Date [...] COMPREHENSIVE METABOLIC PANEL STAT 10/02/2017 8:50 AM DISTRICT ADMINISTRATIVE ASSISTANT from Last 3 Months or Most Recently Relevant to Health Maintenance Results * (ABNORMAL) Comprehensive metabolic panel (10/02/2017 8:50 AM DISTRICT ADMINISTRATIVE ASSISTANT) Sodium 138 133 - 144 mmol/L 10/02/2017 9:30 AM [facility] Potassium 3.3(L) 3.4 - 5.3 mmol/L 10/02/2017 9:30 AM [facility] Chloride 103 94 - 109 mmol/L 10/02/2017 9:30 AM [facility] Carbon Dioxide 31 20 - 32 mmol/L 10/02/2017 9:30 AM [facility] Anion Gap 4 3 - 14 mmol/L 10/02/2017 9:30 AM [facility] Glucose 82 70 - 99 mg/dL 10/02/2017 9:30 AM [facility] Urea Nitrogen 14 7 - 30 mg/dL 10/02/2017 9:30 AM [facility] Creatinine 0.79 0.52 - 1.04 mg/dL 10/02/2017 9:30 AM [facility] GFR Estimate 76 >60 mL/min/1.7 m2 10/02/2017 9:30 AM [facility] Comment:Non GFR Calc GFR Estimate If Black >90 >60 mL/min/1.7 m2 10/02/2017 9:30 AM [facility] Comment: GFR Calc Calcium 8.8 8.5 - 10.1 mg/dL 10/02/2017 9:30 AM [facility] Bilirubin Total 0.3 0.2 - 1.3 mg/dL 10/02/2017 9:30 AM [facility] Albumin 3.5 3.4 - 5.0 g/dL 10/02/2017 9:30 AM [facility] Protein Total 7.4 6.8 - 8.8 g/dL 10/02/2017 9:30 AM [facility] Alkaline Phosphatase 71 40 - 150 U/L 10/02/2017 9:30 AM [facility] ALT 54(H) 0 - 50 U/L 10/02/2017 9:30 AM [facility] AST 25 0 - 45 U/L 10/02/2017 9:30 AM [facility] Blood specimen (specimen) 10/02/2017 8:50 AM DISTRICT ADMINISTRATIVE ASSISTANT 10/02/2017 9:08 AM DISTRICT ADMINISTRATIVE ASSISTANT Chip Urbina MD LAB - BLOOD ORD ERABLES [facility] [address] [place] [address], [facility] [phone] from Last 3 Months or Most Recently Relevant to Health Maintenance Care Teams Cda Teacher Relationship Specialty Start Date End Date Yuan Lira PA-C [address] [place] [address] PCP - General 10/08/21
--- OUTSIDE RECORDS SUMMARY | 2024-05-12 09:23 | XMS_ITS | Encounter Summary ---
Author Organization [facility] Address [address] [place] [address] Care Team Providers Care Information Technology Security Analyst Name Role Phone Yuan Lira PA-C Primary Care Provider [phone] Encounter Details Date Type Department Care Team [...] COVID-19? No / Unsure 10/08/2021 9:20 AM DIRECTOR OF RETAIL ANALYTICS documented as of this encounter Plan of Treatment Not on file documented as of this encounter Visit Diagnoses Not on filedocumented in this encounter Care Teams Information Technology Security Analyst Relationship Specialty Start Date End Date Yuan Lira PA-C [facility] [address] [facility] [place] [address] PCP - General 10/08/21 documented as of this encounter
--- OUTSIDE RECORDS SUMMARY | 2024-05-12 09:23 | XMS_ITS | Clinical Summary ---
Author Organization [facility] Address [place], [place] [address] Care Team Providers Care Covering Machine Operator Name Role Phone Pcp, No Primary Care [...] 04/2014 and 07/2014. November 2014: EMG at [place], showed Moderate right and mild left Carpal [...] 2 Maternal Grandmother Mother (Age 63) think [place]? Paternal Grandmother Sister Social History Tobacco Use [...] Procedure Name Priority Date/Time Associated Diagnosis Comments CAN DRAGGER THIN PREP PAP DIAGNOSTIC IMAGED Routine 02/12/2016 [...] Recently Relevant to Health Maintenance Results * CAN DRAGGER THIN PREP PAP DIAGNOSTIC IMAGED (02/12/2016 11:48 AM CDT) CAN DRAGGER CYTOLOGY See Anatomic Pathology case 02/13/2016 12:00 PM CDT [facility] Other (Cervical) Non-Blood / Unknown 02/12/2016 11:48 AM CDT 02/12/2016 11:48 AM CDT Micaela Lainez DO PATHOLOGY/CYTOLOGY [facility] [address] [place] [address], * OCCULT BLOOD IFOBT STOOL (02/12/2016 8:40 AM CDT) STOOL BLOOD ,IFOBT Negative Negative 02/12/2016 11:08 AM CDT [facility] Stool STOOL SPECIMEN / Unknown Non-Blood / Unknown 02/12/2016 8:40 AM CDT 02/12/2016 11:01 AM CDT Micaela Lainez DO LABORATORY [facility] [address] [place] [address], * (ABNORMAL) LIPID PANEL W REFLEX MEASURED LDL (01/17/2016 7:24 AM CDT) CHOLESTEROL,TOTAL 242(H) 100 - 199 mg/dL 01/17/2016 4:59 PM CDT [facility] TRIGLYCERIDES 326(H) <150 mg/dL 01/17/2016 4:59 PM CDT [facility] HDL CHOLESTEROL 35(L) >40 mg/dL 01/17/2016 4:59 PM CDT [facility] NON-HDL CHOLESTEROL 207(H) <145 mg/dl 01/17/2016 4:59 PM CDT [facility] CHOL/HDL RATIO 6.91(H) <4.50 01/17/2016 4:59 PM CDT [facility] LDL CHOLESTEROL 142(H) <=130 mg/dL 01/17/2016 4:59 PM CDT [facility] PATIENT STATUS FASTING 01/17/2016 4:59 PM CDT [facility] Blood specimen (specimen) BLOOD SPECIMEN / Unknown Venipuncture / Unknown 01/17/2016 7:24 AM CDT 01/17/2016 7:25 AM CDT Saima Mayo MD CHEMISTRY [facility] [address] [place] [address], * ANTI HCV (03/31/2012 3:19 PM CDT) ANTI HCV Non-reacti ve [facility] Blood specimen (specimen) BLOOD SPECIMEN / Unknown 03/31/2012 3:19 PM CDT 03/31/2012 3:18 PM CDT Cinthia Joya MD SEND OUTS [facility] [place]NAL ZIP [address] [address] [place] [address] * ANTI HIV 1/2 (03/31/2012 3:19 PM CDT) ANTI HIV 1/2 Non-reacti ve [facility] Blood specimen (specimen) BLOOD SPECIMEN / Unknown 03/31/2012 3:19 PM CDT 03/31/2012 3:18 PM CDT Cinthia Joya MD SEND OUTS [facility] INTERNAL ZIP [address] [address] [place] [phone] * XR MAMMO SCREENING BILATERAL (09/18/2010) Anatomical Region Laterality Modality BREASTS, Breast Left, Breast Right Bilateral Other Cinthia Joya MD MAMMO from Last 3 Months or Most Recently Relevant to Health Maintenance Care Teams Covering Machine Operator Relationship Specialty Start Date End Date Pcp, No . PCP - General 08/24/19
== END 2024-05-12 09:21 | disposition home or self-care (01) ==
LOC: WOUND 09:20
PROVIDERS: PCP Physician Assistant Medical; Visit Provider Nurse Practitioner Family
DX: E11.622 Type 2 diabetes mellitus with other skin ulcer (principal); E11.42 Type 2 diabetes mellitus with diabetic polyneuropathy; L97.822 Non-pressure chronic ulcer of other part of left lower leg with fat layer exposed; Z79.84 Long term (current) use of oral hypoglycemic drugs
CPT/HCPCS: 11042

== ENCOUNTER 2024-05-19 09:26 | Outpatient (CLI) | payer BC, SELFPAY ==
--- OUTSIDE RECORDS SUMMARY | 2024-05-19 09:31 | XMS_ITS | Clinical Summary ---
Author Organization [facility] Address [address] [place] [address] Care Team Providers Care Mainframe Consultant Name Role Phone No Primary/Referring, Phy Primary Care Provider Unavailable Source Comments You are receiving this document as you are listed as the primary care provider,follow-up provider, or the patient has been referred to you for consultation.This is in compliance with the Medicare and[facility] E[facility] Incentive Program,which states Providers who transition their patient to another setting of careor provider of care or refers their patient to another provider of care shouldprovide summary care record for each transition of care or referral. [employer] Allergies Active Allergy Reactions Criticality Noted Date [...] Comments Blood Pressure 143/91 06/29/2018 12:43 PM INTERIOR DESIGN FACULTY MEMBER Pulse 79 06/29/2018 12:43 PM INTERIOR DESIGN FACULTY MEMBER Temperature 36.9 ??C (98.4 ??F) 06/29/2018 12:[address] Respiratory Rate 20 06/29/2018 12:43 PM INTERIOR DESIGN FACULTY MEMBER Oxygen Saturation 96% 06/29/2018 12:43 PM INTERIOR DESIGN FACULTY MEMBER Inhaled Oxygen Concentration - - Weight 73 kg (161 lb) 06/29/2018 12:43 PM INTERIOR DESIGN FACULTY MEMBER Height 160 cm (5' 3) 06/29/2018 12:43 PM INTERIOR DESIGN FACULTY MEMBER Body Mass Index 28.52 06/29/2018 12:43 PM INTERIOR DESIGN FACULTY MEMBER Plan of Treatment Health Maintenance Due Date Last Done Comments Cervical Cancer Screening Due 1965 Colon Cancer Screening Plan Due 1965 Hep C Screening (Preventive Services) 1965 Mammogram 1965 HIV Screening (Preventive Services) 1981 Adult Preventive Visit 1983 HepB (1) 1984 Cholesterol 2010 Zoster/Shingles (1 of 2) 2015 COVID-19 Vaccine ( - 2023-2 5 season) 2024 Influenza (#1) [...] on patient's age to complete this topic Infant RSV Aged Out No longer eligi ble based on patient's age to complete this topic MCV4 Aged Out No longer eligi ble based on patient's age to complete this topic Pneumococcal Aged Out No longer eligi ble based on patient's age to complete this topic Care Teams Mainframe Consultant Relationship Specialty Start Date End Date No Primary/Referring, Phy PCP - General 06/29/18
--- OUTSIDE RECORDS SUMMARY | 2024-05-19 09:31 | XMS_ITS | Clinical Summary ---
Author Organization [facility] Address [place], [place] [address] Care Team Providers Care Fire Control Technician G Name Role Phone Pcp, No Primary Care [...] 04/2014 and 07/2014. November 2014: EMG at [place], showed Moderate right and mild left Carpal [...] Procedure Name Priority Date/Time Associated Diagnosis Comments FIBER OPTIC SPLICER THIN PREP PAP DIAGNOSTIC IMAGED Routine 02/12/2016 [...] Recently Relevant to Health Maintenance Results * FIBER OPTIC SPLICER THIN PREP PAP DIAGNOSTIC IMAGED (02/12/2016 11:48 AM CDT) FIBER OPTIC SPLICER CYTOLOGY See Anatomic Pathology case 02/13/2016 12:00 PM CDT [facility] TRAL LAB[facility]AT[facility] Other (Cervical) Non-Blood / Unknown 02/12/2016 11:48 AM CDT 02/12/2016 11:48 AM CDT Micaela Lainez DO PATHOLOGY/CYTOLOGY [facility] [address] [place] [address], * OCCULT BLOOD IFOBT STOOL (02/12/2016 8:40 AM CDT) STOOL BLOOD ,IFOBT Negative Negative 02/12/2016 11:08 AM CDT [facility] Stool STOOL SPECIMEN / Unknown Non-Blood / Unknown 02/12/2016 8:40 AM CDT 02/12/2016 11:01 AM CDT Micaela Lainez DO LABORATORY [facility] [address] [place] [address], * (ABNORMAL) LIPID PANEL W REFLEX MEASURED LDL (01/17/2016 7:24 AM CDT) CHOLESTEROL,TOTAL 242(H) 100 - 199 mg/dL 01/17/2016 4:59 PM CDT [facility] TRAL LABORATORY TRIGLYCERIDES 326(H) <150 mg/dL 01/17/2016 4:59 PM CDT [facility] HDL CHOLESTEROL 35(L) >40 mg/dL 01/17/2016 4:59 PM CDT [facility] NON-HDL CHOLESTEROL 207(H) <145 mg/dl 01/17/2016 4:59 PM CDT [facility] CHOL/HDL RATIO 6.91(H) <4.50 01/17/2016 4:59 PM CDT [facility] LDL CHOLESTEROL 142(H) <=130 mg/dL 01/17/2016 4:59 PM CDT [facility] PATIENT STATUS FASTING 01/17/2016 4:59 PM CDT [facility] Blood specimen (specimen) BLOOD SPECIMEN / Unknown Venipuncture / Unknown 01/17/2016 7:24 AM CDT 01/17/2016 7:25 AM CDT Saima Mayo MD CHEMISTRY [facility] [address] [place] [address], * ANTI HCV (03/31/2012 3:19 PM CDT) ANTI HCV Non-reacti ve [facility] Blood specimen (specimen) BLOOD SPECIMEN / Unknown 03/31/2012 3:19 PM CDT 03/31/2012 3:18 PM CDT Cinthia Joya MD SEND OUTS [facility] LABORATORY [place]NAL ZIP [address] [address] [place] [address] * ANTI HIV 1/2 (03/31/2012 3:19 PM CDT) ANTI HIV 1/2 Non-reacti ve [facility] Blood specimen (specimen) BLOOD SPECIMEN / Unknown 03/31/2012 3:19 PM CDT 03/31/2012 3:18 PM CDT Cinthia Joya MD SEND OUTS [facility] LABORATORY INTERNAL ZIP [address] [address] [place] [id number] * XR MAMMO SCREENING BILATERAL (09/18/2010) Anatomical Region Laterality Modality BREASTS, Breast Left, Breast Right Bilateral Other Cinthia Joya MD MAMMO from Last 3 Months or Most Recently Relevant to Health Maintenance Care Teams Fire Control Technician G Relationship Specialty Start Date End Date Pcp, No . PCP - General 08/24/19
--- OUTSIDE RECORDS SUMMARY | 2024-05-19 09:31 | XMS_ITS | Referral Summary ---
Author Organization [facility] Address [address] [place] [address] Care Team Providers Care Computer Science Intern Name Role Phone Yuan Lira PA-C [...] Comments Blood Pressure 113/67 10/08/2021 11:15 AM TRACTOR CRANE ENGINEER Pulse 69 10/08/2021 11:15 AM TRACTOR CRANE ENGINEER Temperature 36.9 ??C (98.4 ??F) 10/08/2021 9:25 AM CS T Respiratory Rate 18 10/08/2021 9:25 AM TRACTOR CRANE ENGINEER Oxygen Saturation 97% 10/08/2021 11: 15 AM TRACTOR CRANE ENGINEER Inhaled Oxygen Concentration - - Weight 74.8 kg (164 lb 14.5 oz) 022 10:08 AM TRACTOR CRANE ENGINEER Height 157.5 cm (5' 2) 10/02/2017 9:05 AM TRACTOR CRANE ENGINEER Body Mass Index 30.16 10/02/2017 9:05 AM TRACTOR CRANE ENGINEER Plan of Treatment Not on file Procedures Procedure Name Priority Date/Time Associated Diagnosis Comments COMPREHENSIVE METABOLIC PANEL STAT 10/02/2017 8:50 AM TRACTOR CRANE ENGINEER from Last 3 Months or Most Recently Relevant to Health Maintenance Results * (ABNORMAL) Comprehensive metabolic panel (10/02/2017 8:50 AM TRACTOR CRANE ENGINEER) Sodium 138 133 - 144 mmol/L 10/02/2017 9:30 AM [facility] Potassium 3.3(L) 3.4 - 5.3 mmol/L 10/02/2017 9:30 AM [facility] Chloride 103 94 - 109 mmol/L 10/02/2017 9:30 AM [facility] Carbon Dioxide 31 20 - 32 mmol/L 10/02/2017 9:30 AM [facility] Anion Gap 4 3 - 14 mmol/L 10/02/2017 9:30 AM [facility] Glucose 82 70 - 99 mg/dL 10/02/2017 9:30 AM [facility] Urea Nitrogen 14 7 - 30 mg/dL 10/02/2017 9:30 AM [facility] Creatinine 0.79 0.52 - 1.04 mg/dL 10/02/2017 9:30 AM [facility] GFR Estimate 76 >60 mL/min/1.7 m2 10/02/2017 9:30 AM [facility] Comment:Non GFR Calc GFR Estimate If Black >90 >60 mL/min/1.7 m2 10/02/2017 9:30 AM [facility] Comment: GFR Calc Calcium 8.8 8.5 - 10.1 mg/dL 10/02/2017 9:30 AM [facility] Bilirubin Total 0.3 0.2 - 1.3 mg/dL 10/02/2017 9:30 AM [facility] Albumin 3.5 3.4 - 5.0 g/dL 10/02/2017 9:30 AM [facility] Protein Total 7.4 6.8 - 8.8 g/dL 10/02/2017 9:30 AM [facility] Alkaline Phosphatase 71 40 - 150 U/L 10/02/2017 9:30 AM [facility] ALT 54(H) 0 - 50 U/L 10/02/2017 9:30 AM [facility] AST 25 0 - 45 U/L 10/02/2017 9:30 AM [facility] Blood specimen (specimen) 10/02/2017 8:50 AM TRACTOR CRANE ENGINEER 10/02/2017 9:08 AM TRACTOR CRANE ENGINEER Chip Urbina MD LAB - BLOOD ORD ERABLES [facility] [address] [place] [address], [facility] [phone] from Last 3 Months or Most Recently Relevant to Health Maintenance Care Teams Computer Science Intern Relationship Specialty Start Date End Date Yuan Lira PA-C [facility] & [address] [place], [place] [id number] PCP - General 10/08/21
--- OUTSIDE RECORDS SUMMARY | 2024-05-19 09:31 | XMS_ITS | Encounter Summary ---
Author Organization [facility] Address [address] [place] [address] Care Team Providers Care Carpenter Form Name Role Phone Yuan Lira PA-C Primary Care Provider [phone] Encounter Details Date Type Department Care Team [...] COVID-19? No / Unsure 10/08/2021 9:20 AM LOCOMOTIVE DRIVER documented as of this encounter Plan of Treatment Not on file documented as of this encounter Visit Diagnoses Not on filedocumented in this encounter Care Teams Carpenter Form Relationship Specialty Start Date End Date Yuan Lira PA-C [facility] [address] [facility] [place] [address] PCP - General 10/08/21 documented as of this encounter
--- OUTSIDE RECORDS SUMMARY | 2024-05-19 09:31 | XMS_ITS | Clinical Summary ---
Author Organization [facility] Address [address] [place] [address] Care Team Providers Care Vein Access Technician Name Role Phone Yuan Lira PA-C Primary Care Provider [phone] Allergies Active Allergy Reactions Criticality Noted Date [...] Comments Blood Pressure 113/67 10/08/2021 11:15 AM CONFIGURATION MANAGEMENT ANALYST Pulse 69 10/08/2021 11:15 AM CONFIGURATION MANAGEMENT ANALYST Temperature 36.9 ??C (98.4 ??F) 10/08/2021 9:25 AM CS T Respiratory Rate 18 10/08/2021 9:25 AM CONFIGURATION MANAGEMENT ANALYST Oxygen Saturation 97% 10/08/2021 11: 15 AM CONFIGURATION MANAGEMENT ANALYST Inhaled Oxygen Concentration - - Weight 74.8 kg (164 lb 14.5 oz) 022 10:08 AM CONFIGURATION MANAGEMENT ANALYST Height 157.5 cm (5' 2) 10/02/2017 9:05 AM CONFIGURATION MANAGEMENT ANALYST Body Mass Index 30.16 10/02/2017 9:05 AM CONFIGURATION MANAGEMENT ANALYST Plan of Treatment Health Maintenance Due Date [...] Td or Tdap) 03/11/2025 03/11/2015, 11/25/2004, 07/11/2004 RSV VACCINE (1 - 1-dose 75+ series) 2040 HPV IMMUNIZATION Aged Out No longer e [...] COMPREHENSIVE METABOLIC PANEL STAT 10/02/2017 8:50 AM CONFIGURATION MANAGEMENT ANALYST from Last 3 Months or Most Recently Relevant to Health Maintenance Results * (ABNORMAL) Comprehensive metabolic panel (10/02/2017 8:50 AM CONFIGURATION MANAGEMENT ANALYST) Sodium 138 133 - 144 mmol/L 10/02/2017 9:30 AM [facility] Potassium 3.3(L) 3.4 - 5.3 mmol/L 10/02/2017 9:30 AM [facility] Chloride 103 94 - 109 mmol/L 10/02/2017 9:30 AM [facility] Carbon Dioxide 31 20 - 32 mmol/L 10/02/2017 9:30 AM [facility] Anion Gap 4 3 - 14 mmol/L 10/02/2017 9:30 AM [facility] Glucose 82 70 - 99 mg/dL 10/02/2017 9:30 AM [facility] Urea Nitrogen 14 7 - 30 mg/dL 10/02/2017 9:30 AM [facility] Creatinine 0.79 0.52 - 1.04 mg/dL 10/02/2017 9:30 AM [facility] GFR Estimate 76 >60 mL/min/1.7 m2 10/02/2017 9:30 AM [facility] Comment:Non GFR Calc GFR Estimate If Black >90 >60 mL/min/1.7 m2 10/02/2017 9:30 AM [facility] Comment: GFR Calc Calcium 8.8 8.5 - 10.1 mg/dL 10/02/2017 9:30 AM [facility] Bilirubin Total 0.3 0.2 - 1.3 mg/dL 10/02/2017 9:30 AM [facility] Albumin 3.5 3.4 - 5.0 g/dL 10/02/2017 9:30 AM [facility] Protein Total 7.4 6.8 - 8.8 g/dL 10/02/2017 9:30 AM [facility] Alkaline Phosphatase 71 40 - 150 U/L 10/02/2017 9:30 AM [facility] ALT 54(H) 0 - 50 U/L 10/02/2017 9:30 AM [facility] AST 25 0 - 45 U/L 10/02/2017 9:30 AM [facility] Blood specimen (specimen) 10/02/2017 8:50 AM CONFIGURATION MANAGEMENT ANALYST 10/02/2017 9:08 AM CONFIGURATION MANAGEMENT ANALYST Chip Urbina MD LAB - BLOOD ORD ERABLES [facility] Organization Address City/State/ZIP Co de Phone Number [facility] [address] [place] [address], [facility] [phone] from Last 3 Months or Most Recently Relevant to Health Maintenance Care Teams Vein Access Technician Relationship Specialty Start Date End Date Yuan Lira PA-C [facility] [address] [place], [place] [address] [place] [address] PCP - General 10/08/21
== END 2024-05-19 09:27 | disposition home or self-care (01) ==
LOC: WOUND 09:26
PROVIDERS: PCP Physician Assistant Medical; Visit Provider Nurse Practitioner Family
DX: E11.622 Type 2 diabetes mellitus with other skin ulcer (principal); E11.42 Type 2 diabetes mellitus with diabetic polyneuropathy; L97.822 Non-pressure chronic ulcer of other part of left lower leg with fat layer exposed; Z79.84 Long term (current) use of oral hypoglycemic drugs
CPT/HCPCS: 11042

== ENCOUNTER 2024-06-16 09:19 | Outpatient (CLI) | payer BC, SELFPAY ==
--- OUTSIDE RECORDS SUMMARY | 2024-06-16 09:22 | XMS_ITS | Clinical Summary ---
Author Organization [employer] [facility] Address [place], [place] [address] Care Team Providers Care Director Of Retail Analytics Name Role Phone Pcp, No Primary Care [...] 04/2014 and 07/2014. November 2014: EMG at [place], showed Moderate right and mild left [...] Procedure Name Priority Date/Time Associated Diagnosis Comments HYDRAULIC MINER BLASTING THIN PREP PAP DIAGNOSTIC IMAGED Routine 02/12/2016 [...] Recently Relevant to Health Maintenance Results * HYDRAULIC MINER BLASTING THIN PREP PAP DIAGNOSTIC IMAGED (02/12/2016 11:48 AM CDT) HYDRAULIC MINER BLASTING CYTOLOGY See Anatomic Pathology case 02/13/2016 12:00 PM CDT [facility] TRAL LABORATORY Other (Cervical) Non-Blood / Unknown 02/12/2016 11:48 AM CDT 02/12/2016 11:48 AM CDT Micaela Lainez DO PATHOLOGY/CYTOLOGY [facility] [address] [place] [address], * OCCULT BLOOD IFOBT STOOL (02/12/2016 8:40 AM CDT) STOOL BLOOD ,IFOBT Negative Negative 02/12/2016 11:08 AM CDT [facility] Stool STOOL SPECIMEN / Unknown Non-Blood / Unknown 02/12/2016 8:40 AM CDT 02/12/2016 11:01 AM CDT Micaela Lainez DO LABORATORY [facility] [address] [place] [address], * (ABNORMAL) LIPID PANEL W REFLEX MEASURED LDL (01/17/2016 7:24 AM CDT) CHOLESTEROL,TOTAL 242(H) 100 - 199 mg/dL 01/17/2016 4:59 PM CDT [facility] TR[facility]ORY TRIGLYCERIDES 326(H) <150 mg/dL 01/17/2016 4:59 PM CDT [facility] HDL CHOLESTEROL 35(L) >40 mg/dL 01/17/2016 4:59 PM CDT [facility] NON-HDL CHOLESTEROL 207(H) <145 mg/dl 01/17/2016 4:59 PM CDT [facility] CHOL/HDL RATIO 6.91(H) <4.50 01/17/2016 4:59 PM CDT [facility] LDL CHOLESTEROL 142(H) <=130 mg/dL 01/17/2016 4:59 PM CDT [facility] PATIENT STATUS FASTING 01/17/2016 4:59 PM CDT [facility] Blood specimen (specimen) BLOOD SPECIMEN / Unknown Venipuncture / Unknown 01/17/2016 7:24 AM CDT 01/17/2016 7:25 AM CDT Saima Mayo MD CHEMISTRY [facility] [address] [place] [address], * ANTI HCV (03/31/2012 3:19 PM CDT) ANTI HCV Non-reacti ve [facility] Blood specimen (specimen) BLOOD SPECIMEN / Unknown 03/31/2012 3:19 PM CDT 03/31/2012 3:18 PM CDT Cinthia Joya MD SEND OUTS [facility] LABORATORY INTERNAL ZIP [address] [address] [place] [address] * ANTI HIV 1/2 (03/31/2012 3:19 PM CDT) ANTI HIV 1/2 Non-reacti ve [facility] Blood specimen (specimen) BLOOD SPECIMEN / Unknown 03/31/2012 3:19 PM CDT 03/31/2012 3:18 PM CDT Cinthia Joya MD SEND OUTS [facility] LABORATORY INTERNAL ZIP [address] [address] [place] [id number] * XR MAMMO SCREENING BILATERAL (09/18/2010) Anatomical Region Laterality Modality BREASTS, Breast Left, Breast Right Bilateral Other Cinthia Joya MD MAMMO from Last 3 Months or Most Recently Relevant to Health Maintenance Care Teams Director Of Retail Analytics Relationship Specialty Start Date End Date Pcp, No . PCP - General 08/24/19
--- OUTSIDE RECORDS SUMMARY | 2024-06-16 09:22 | XMS_ITS | Encounter Summary ---
Author Organization [facility] Address [address] [place] [address] Care Team Providers Care Childcare Director Name Role Phone Yuan Lira PA-C Primary Care Provider [phone] Encounter Details Date Type Department Care Team (Late st Contact Info) Description 10/08/2021 Documentation Only INTERFACED REPORT Unknown, Provider Social History Tobacco Use Types Packs/Day Years Used Date Smoking Tobacco: Every Day Alcohol Use Standard Drinks/Week Comments No 0 (1 standard drink = 0.6 oz pur e alcohol) Comments No Sex and Gender Information Value Date Recorded Sex Assigned at Not on file Legal Sex Female 5:16 AM LEATHER PRODUCTION WORKER Gender Identity Not on file Sexual Orientation Not on file COVID-19 Exposure Response Date Recorded In the last month, have you been in contact with someone who was confirmed or suspected to have Coronavirus / COVID-19? No / Unsure 10/08/2021 9:20 AM LEATHER PRODUCTION WORKER documented as of this encounter Plan of Treatment Not on file documented as of this encounter Visit Diagnoses Not on filedocumented in this encounter Care Teams Childcare Director Relationship Specialty Start Date End Date Yuan Lira PA-C [address] [facility] [place] [address] PCP - General 10/08/21 documented as of this encounter
--- OUTSIDE RECORDS SUMMARY | 2024-06-16 09:22 | XMS_ITS | Clinical Summary ---
Author Organization [facility] Address [address] [place] [address] Care Team Providers Care Book Agent Name Role Phone Yuan Lira PA-C Primary Care Provider [phone] Allergies Active Allergy Reactions Criticality Noted Date Comments Morphine Sulfate 07/31/2012 Penicillins 07/31/2012 Medications HYDROCHLOROTHIA ZIDE PO Take by mouth. Active FLUoxetine HCl (PROZAC PO) Take by mouth. Active VITAMIN D, CHOLECALCIFEROL , PO Take by mouth daily. Active Cyanocobalamin (VITAMIN B 12 PO) Take by mouth. Active oxyCODONE IR (ROXICODONE) 5 MG tablet Take [...] tendo ns in shoulder region 09/07/2011 01/18/2012 Overview (05/10/2015): Problem list name updated by automated process. [...] School Help Needed Not on file 04/30 Comments No Sex and Gender Information Value Date Recorded Sex Assigned at Not on file Legal Sex Female 5:16 AM DENTAL PRACTICE MANAGER Gender Identity Not on file Sexual Orientation Not on file Last Filed Vital Signs Vital Sign Reading Time Taken Comments Blood Pressure 113/67 10/08/2021 11:15 AM DENTAL PRACTICE MANAGER Pulse 69 10/08/2021 11:15 AM DENTAL PRACTICE MANAGER Temperature 36.9 ??C (98.4 ??F) 10/08/2021 9:25 AM CS T Respiratory Rate 18 10/08/2021 9:25 AM DENTAL PRACTICE MANAGER Oxygen Saturation 97% 10/08/2021 11: 15 AM DENTAL PRACTICE MANAGER Inhaled Oxygen Concentration - - Weight 74.8 kg (164 lb 14.5 oz) 022 10:08 AM DENTAL PRACTICE MANAGER Height 157.5 cm (5' 2) 10/02/2017 9:05 AM DENTAL PRACTICE MANAGER Body Mass Index 30.16 10/02/2017 9:05 AM DENTAL PRACTICE MANAGER Plan of Treatment Health Maintenance Due [...] COMPREHENSIVE METABOLIC PANEL STAT 10/02/2017 8:50 AM DENTAL PRACTICE MANAGER from Last 3 Months or Most Recently Relevant to Health Maintenance Results * (ABNORMAL) Comprehensive metabolic panel (10/02/2017 8:50 AM DENTAL PRACTICE MANAGER) Sodium 138 133 - 144 mmol/L 10/02/2017 9:[address] [facility] Potassium 3.3(L) 3.4 - 5.3 mmol/L 10/02/2017 9:[address] [facility] Chloride 103 94 - 109 mmol/L 10/02/2017 9:[address] [facility] Carbon Dioxide 31 20 - 32 mmol/L 10/02/2017 9:[address] [facility] Anion Gap 4 3 - 14 mmol/L 10/02/2017 9:[address] [facility] Glucose 82 70 - 99 mg/dL 10/02/2017 9:[address] [facility] Urea Nitrogen 14 7 - 30 mg/dL 10/02/2017 9:[address] [facility] Creatinine 0.79 0.52 - 1.04 mg/dL 10/02/2017 9:[address] [facility] GFR Estimate 76 >60 mL/min/1.7 m2 10/02/2017 9:[address] [facility] Comment:Non GFR Calc GFR Estimate If Black >90 >60 mL/min/1.7 m2 10/02/2017 9:[address] [facility] Comment: GFR Calc Calcium 8.8 8.5 - 10.1 mg/dL 10/02/2017 9:[address] [facility] Bilirubin Total 0.3 0.2 - 1.3 mg/dL 10/02/2017 9:[address] [facility] Albumin 3.5 3.4 - 5.0 g/dL 10/02/2017 9:[address] [facility] Protein Total 7.4 6.8 - 8.8 g/dL 10/02/2017 9:[address] [facility] Alkaline Phosphatase 71 40 - 150 U/L 10/02/2017 9:[address] [facility] ALT 54(H) 0 - 50 U/L 10/02/2017 9:[address] [facility] AST 25 0 - 45 U/L 10/02/2017 9:[address] [facility] Blood specimen (specimen) 10/02/2017 8:50 AM [facility] 10/02/2017 9:08 AM [facility] Chip Urbina MD LAB - BLOOD ORDERABLES Final Result [facility] [address] [place] [id number] [phone] from Last 3 Months or Most Recently Relevant to Health Maintenance Insurance [address] [phone] [employer] OTHER Member Subscriber Plan / Payer (Ef fective 2011-Present) Name:Akanksha Hensley Relation to Subscriber:Employee Name:[employer] Date of :1899 (Home) (Work) Address: [address] [place] [address] Payer ID:[id number] Group ID:Not on file Type:Not on file [phone] Address: [address] [place] [address] Care Teams Book Agent Relationship Specialty Start Date End Date Yuan Lira PA-C [facility] [address] [place] [address] PCP - General 10/08/21
--- OUTSIDE RECORDS SUMMARY | 2024-06-16 09:22 | XMS_ITS | Clinical Summary ---
Author Organization [facility] Address [address] [place] [address] Care Team Providers Care Street Engineer Name Role Phone No Primary/Referring, Phy Primary Care Provider Unavailable Source Comments You are receiving this document as you are listed as the primary care provider,follow-up provider, or the patient has been referred to you for consultation.This is in compliance with the Medicare and[facility] EHR Incentive Program,which states Providers who transition their patient to another setting of careor provider of care or refers their patient to another provider of care shouldprovide summary care record for each transition of care or referral. [employer] Allergies Active Allergy Reactions Criticality Noted Date [...] Comments Blood Pressure 143/91 06/29/2018 12:43 PM BUSINESS INSIGHT AND ANALYTICS MANAGER Pulse 79 06/29/2018 12:43 PM BUSINESS INSIGHT AND ANALYTICS MANAGER Temperature 36.9 ??C (98.4 ??F) 06/29/2018 12:[address] Respiratory Rate 20 06/29/2018 12:43 PM BUSINESS INSIGHT AND ANALYTICS MANAGER Oxygen Saturation 96% 06/29/2018 12:43 PM BUSINESS INSIGHT AND ANALYTICS MANAGER Inhaled Oxygen Concentration - - Weight 73 kg (161 lb) 06/29/2018 12:43 PM BUSINESS INSIGHT AND ANALYTICS MANAGER Height 160 cm (5' 3) 06/29/2018 12:43 PM BUSINESS INSIGHT AND ANALYTICS MANAGER Body Mass Index 28.52 06/29/2018 12:43 PM BUSINESS INSIGHT AND ANALYTICS MANAGER Plan of Treatment Health Maintenance Due [...] age to complete this topic Care Teams Street Engineer Relationship Specialty Start Date End Date No Primary/Referring, Phy PCP - General 06/29/18
--- OUTSIDE RECORDS SUMMARY | 2024-06-16 09:22 | XMS_ITS | Referral Summary ---
Author Organization [facility] Address [address] [place] [address] Care Team Providers Care Publicity Manager Name Role Phone Yuan Lira PA-C Primary Care Provider [phone] Allergies Active Allergy Reactions Criticality Noted Date [...] on file Legal Sex Female 5:16 AM CABLE WEAVER Gender Identity Not on file Sexual Orientation Not on file Last Filed Vital Signs Vital Sign Reading Time Taken Comments Blood Pressure 113/67 10/08/2021 11:15 AM CABLE WEAVER Pulse 69 10/08/2021 11:15 AM CABLE WEAVER Temperature 36.9 ??C (98.4 ??F) 10/08/2021 9:25 AM CS T Respiratory Rate 18 10/08/2021 9:25 AM CABLE WEAVER Oxygen Saturation 97% 10/08/2021 11: 15 AM CABLE WEAVER Inhaled Oxygen Concentration - - Weight 74.8 kg (164 lb 14.5 oz) 022 10:08 AM CABLE WEAVER Height 157.5 cm (5' 2) 10/02/2017 9:05 AM CABLE WEAVER Body Mass Index 30.16 10/02/2017 9:05 AM CABLE WEAVER Plan of Treatment Not on file Procedures Procedure Name Priority Date/Time Associated Diagnosis Comments COMPREHENSIVE METABOLIC PANEL STAT 10/02/2017 8:50 AM CABLE WEAVER from Last 3 Months or Most Recently Relevant to Health Maintenance Results * (ABNORMAL) Comprehensive metabolic panel (10/02/2017 8:50 AM CABLE WEAVER) Sodium 138 133 - 144 mmol/L 10/02/2017 9:30 AM [facility] Potassium 3.3(L) 3.4 - 5.3 mmol/L 10/02/2017 9:30 AM [facility] Chloride 103 94 - 109 mmol/L 10/02/2017 9:30 AM [facility] Carbon Dioxide 31 20 - 32 mmol/L 10/02/2017 9:30 AM [facility] Anion Gap 4 3 - 14 mmol/L 10/02/2017 9:30 AM [facility] Glucose 82 70 - 99 mg/dL 10/02/2017 9:30 AM [facility] Urea Nitrogen 14 7 - 30 mg/dL 10/02/2017 9:30 AM [facility] Creatinine 0.79 0.52 - 1.04 mg/dL 10/02/2017 9:30 AM [facility] GFR Estimate 76 >60 mL/min/1.7 m2 10/02/2017 9:30 AM [facility] Comment:Non GFR Calc GFR Estimate If Black >90 >60 mL/min/1.7 m2 10/02/2017 9:30 AM [facility] Comment: GFR Calc Calcium 8.8 8.5 - 10.1 mg/dL 10/02/2017 9:30 AM [facility] Bilirubin Total 0.3 0.2 - 1.3 mg/dL 10/02/2017 9:30 AM [facility] Albumin 3.5 3.4 - 5.0 g/dL 10/02/2017 9:30 AM [facility] Protein Total 7.4 6.8 - 8.8 g/dL 10/02/2017 9:30 AM [facility] Alkaline Phosphatase 71 40 - 150 U/L 10/02/2017 9:30 AM [facility] ALT 54(H) 0 - 50 U/L 10/02/2017 9:30 AM [facility] AST 25 0 - 45 U/L 10/02/2017 9:30 AM [facility] Blood specimen (specimen) 10/02/2017 8:50 AM [facility] 10/02/2017 9:08 AM [facility] us Chip Urbina MD LAB - BLOOD ORDERABLES Final Result [facility] [address] [place] [address], [place] [phone] from Last 3 Months or Most Recently Relevant to Health Maintenance Insurance [address] [address] [employer] IN[employer]IDUAL FAMILY [employer] WC OTHER Member Subscriber Plan / Payer (Ef fective 2011-Present) Name:Akanksha Hensley Relation to Subscriber:Employee Name:[employer] Date of :1899 (Home) (Work) Address: [address] [place] [address] Payer ID:[id number] Group ID:Not on file Type:Not on file [id number] Address: [address] [place] [address] Care Teams Publicity Manager Relationship Specialty Start Date End Date Yuan Lira PA-C [facility] [address] [place] [address] PCP - General 10/08/21
== END 2024-06-16 09:20 | disposition home or self-care (01) ==
LOC: WOUND 09:19
PROVIDERS: PCP Physician Assistant Medical; Visit Provider Nurse Practitioner Family
DX: E11.42 Type 2 diabetes mellitus with diabetic polyneuropathy (principal); E03.9 Hypothyroidism, unspecified; Z79.84 Long term (current) use of oral hypoglycemic drugs
CPT/HCPCS: G0463

== ENCOUNTER 2024-08-23 09:04 | Outpatient (CLI) | payer BC, SELFPAY ==
--- NOTE | 2024-08-23 09:15 | CRLHL7_ITS ---
For Patients: As a result of the Century Cures Act, medical imaging exams and procedure reports are released immediately into your electronic medical record. You may view this report before your referring provider. If you have questions, please contact your health care provider. INDICATION: Non-alcoholic steatohepatitis COMPARISON: none TECHNIQUE: Real time bergeron scale imaging and color Doppler analysis was performed of the right upper quadrant. FINDINGS: The patient`s liver is of normal size and has increased echogenicity. There is a normal appearance of the hepatic IVC and proximal abdominal aorta. There is no evidence of ascites. The gallbladder is of normal size and there is no evidence of intraluminal stones or sludge. The gallbladder wall measures 1.3 mm in thickness. The common bile duct is of normal size and measures 3.6 mm in diameter at the level of the steve hepatis. The pancreas appears normal. There is no evidence of a stone or hydronephrosis within the right kidney. The right kidney measures cm in length. Main portal vein is patent with antegrade flow measuring 11.2 cm/second. Main portal vein measures 1.3 cm. IMPRESSION: Diffuse hepatic steatosis. No ascites. Normal gallbladder. Dictated by Anil Murphy MD @ 08/23/2024 12:47:02 PM (Electronically Signed)
== END 2024-08-23 09:05 | disposition home or self-care (01) ==
LOC: US 09:05
PROVIDERS: PCP Physician Assistant Medical; Visit Provider Physician Assistant
DX: K75.81 Nonalcoholic steatohepatitis (NASH) (principal); K76.0 Fatty (change of) liver, not elsewhere classified; K74.02 Hepatic fibrosis, advanced fibrosis
CPT/HCPCS: 76705

== ENCOUNTER 2024-09-10 14:56 | Emergency (ER) | payer BC, SELFPAY ==
--- OUTSIDE RECORDS SUMMARY | 2024-09-10 14:57 | XMS_ITS | Clinical Summary ---
Author Organization [facility] Address [address] [place] [address] Care Team Providers Care Asphalt Mixer Name Role Phone Yuan Lira PA-C Primary Care Provider [phone] Allergies Active Allergy Reactions Criticality Noted Date [...] on file Legal Sex Female 5:16 AM BLUE LINE HANGER Gender Identity Not on file Sexual Orientation Not on file Last Filed Vital Signs Vital Sign Reading Time Taken Comments Blood Pressure 113/67 10/08/2021 11:15 AM BLUE LINE HANGER Pulse 69 10/08/2021 11:15 AM BLUE LINE HANGER Temperature 36.9 C (98.4 F) 10/08/2021 9:25 AM BLUE LINE HANGER Respiratory Rate 18 10/08/2021 9:25 AM BLUE LINE HANGER Oxygen Saturation 97% 10/08/2021 11: 15 AM BLUE LINE HANGER Inhaled Oxygen Concentration - - Weight 74.8 kg (164 lb 14.5 oz) 022 10:08 AM BLUE LINE HANGER Height 157.5 cm (5' 2) 10/02/2017 9:05 AM BLUE LINE HANGER Body Mass Index 30.16 10/02/2017 9:05 AM BLUE LINE HANGER Plan of Treatment Health Maintenance Due Date Last Done Comments ADVANCE CARE PLANNING 1965 ANNUAL REVIEW OF HM ORDERS 1965 CT COLONOGRAPHY 1965 FIT 1965 FLEX SIG 1965 MAMMO SCREENING 1965 sDNA (Cologuard) 1965 YEARLY PREVENTIVE VISIT 1968 COLONOSCOPY 1975 COLORECTAL CANCER SCREENING 1975 HIV SCREENING 1980 HEPATITIS C SCREENING 1983 HEPATITIS B IMMUNIZATION (1 of 3 - 19+ 3-dose series) 1984 Pneumococcal Vaccine: 50+ Years (1 of 2 - PCV) 1984 PAP 1986 LIPID 2005 LUNG CANCER SCREENING 2015 ZOSTER IMMUNIZATION (1 of 2) 2015 GLUCOSE 10/02/2020 10/02/2017 COVID-19 Vaccine ( - 2023-2 5 season) 2024 INFLUENZA VACCINE (#1) 2024 07/07/2016 PHQ-2 (once per calendar year) 2024 DTAP/TDAP/TD IMMUNIZATION (2 - Td or Tdap) [...] COMPREHENSIVE METABOLIC PANEL STAT 10/02/2017 8:50 AM BLUE LINE HANGER from Last 3 Months or Most Recently Relevant to Health Maintenance Results * (ABNORMAL) Comprehensive metabolic panel (10/02/2017 8:50 AM BLUE LINE HANGER) Sodium 138 133 - 144 mmol/L 10/02/2017 9:30 AM [facility] Potassium 3.3(L) 3.4 - 5.3 mmol/L 10/02/2017 9:30 AM [facility] Chloride 103 94 - 109 mmol/L 10/02/2017 9:30 AM [facility] Carbon Dioxide 31 20 - 32 mmol/L 10/02/2017 9:30 AM [facility] Anion Gap 4 3 - 14 mmol/L 10/02/2017 9:30 AM [facility] Glucose 82 70 - 99 mg/dL 10/02/2017 9:30 AM [facility] Urea Nitrogen 14 7 - 30 mg/dL 10/02/2017 9:30 AM [facility] Creatinine 0.79 0.52 - 1.04 mg/dL 10/02/2017 9:30 AM [facility] GFR Estimate 76 >60 mL/min/1.7 m2 10/02/2017 9:30 AM [facility] Comment:Non GFR Calc GFR Estimate If Black >90 >60 mL/min/1.7 m2 10/02/2017 9:30 AM [facility] Comment: GFR Calc Calcium 8.8 8.5 - 10.1 mg/dL 10/02/2017 9:30 AM [facility] Bilirubin Total 0.3 0.2 - 1.3 mg/dL 10/02/2017 9:30 AM [facility] Albumin 3.5 3.4 - 5.0 g/dL 10/02/2017 9:30 AM [facility] Protein Total 7.4 6.8 - 8.8 g/dL 10/02/2017 9:30 AM [facility] Alkaline Phosphatase 71 40 - 150 U/L 10/02/2017 9:30 AM [facility] ALT 54(H) 0 - 50 U/L 10/02/2017 9:30 AM [facility] AST 25 0 - 45 U/L 10/02/2017 9:30 AM [facility] Blood specimen (specimen) 10/02/2017 8:50 AM BLUE LINE HANGER 10/02/2017 9:08 AM [facility] Chip Urbina MD LAB - BLOOD ORDERABLES Final Result [facility] [address] [place] [id number], [facility] [phone] from Last 3 Months or Most Recently Relevant to Health Maintenance Insurance [address] [phone] [facility] INDIVIDUAL FAMILY PLANS OTHER Member Subscriber Plan / Payer (Ef fective 2011-Present) Name:[place] Relation to Subscriber:Employee Name:[employer] Date of :1899 (Home) (Work) Address: [address] [place] [address] Payer ID:[id number] Group ID:Not on file Type:Not on file x1322 Address: [facility] [address] [place] [address] Care Teams Asphalt Mixer Relationship Specialty Start Date End Date Yuan Lira PA-C [facility] [address] [place] [address] [place] [address] PCP - General 10/08/21
--- OUTSIDE RECORDS SUMMARY | 2024-09-10 14:57 | XMS_ITS | Encounter Summary ---
Author Organization [facility] Address [address] [place] [address] Care Team Providers Care Technical Expert Name Role Phone Yuan Lira PA-C Primary Care Provider [phone] Encounter Details Date Type Department Care Team [...] on file Legal Sex Female 5:16 AM NEUROSURGERY PHYSICIAN Gender Identity Not on file Sexual Orientation Not on file COVID-19 Exposure Response Date Recorded In the last month, have you been in contact with someone who was confirmed or suspected to have Coronavirus / COVID-19? No / Unsure 10/08/2021 9:20 AM NEUROSURGERY PHYSICIAN documented as of this encounter Plan of Treatment Not on file documented as of this encounter Visit Diagnoses Not on filedocumented in this encounter Care Teams Technical Expert Relationship Specialty Start Date End Date Yuan Lira PA-C [address] [facility] [place] [address] PCP - General 10/08/21 documented as of this encounter
--- OUTSIDE RECORDS SUMMARY | 2024-09-10 14:57 | XMS_ITS | Data Portability ---
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 Reviewed elevation and support ice. Reviewed the chance of infection bleeding the length of the scar. Lengthening of the scar to decrease tension. Cleansed with Betadine followed by alcohol, anesthetized 1% lidocaine with epinephrine. Mohs case number [id number]. Stage I: Curette debulk. [...] offered reassurance. Follow-up in 15 days in [place]. Verbal, typewritten wound care instructions given. Cell phone number given [email or web address] Not available 10/28/2020 14:55:38 Plan of Treatment Reminders Order Date Submit Date Provider Last Modified By Organization Details Last Modified Time Details Appointments None recorded. Lab None recorded. Referral None recorded. Procedures None recorded. Surgeries None recorded. Imaging None recorded. Medication Orders doxycycline hyclate 100 mg capsule 2020 021 apappas6 [id number], [address] [place], [place], [id number], 15:28:55 Patient TargetsNo targets recorded. Patient Instructions Encounter Date Encounter Id Patient Instructions Last Modified By Organization Details Last Modified Time 10/28/2020 [id number] actinic keratosis: care instructions Not available 10/28/2020 15:29:06 cellulitis: care instructions Not available 10/28/2020 14:24:45 Reason for Referral None Reported. Medical Equipment None Reported. 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 C44.629 Actinic keratosis L57.0 Health Concerns Section Related Observation LastModified by Organization Detai ls LastModified Time None Recorded Concern Status LastModified by Organization Details LastModified Time None Recorded Advance Directives Directive None Recorded Payers Encounter Date Sequence Insurance Name Policy Number Policy Garcia Covered Member ID Garcia Member ID Guarantor Name 10/28/2020 1 [facility] - IN[facility]IDUAL [facility] FAM[facility] (HMO) Akanksha Araiza [id number] Akanksha [place] Notes Date Note Type Note Provider Name and Address Organization Details Recorded Time 10/28/2020 text/html 55-year-old fema nieves presents with her sister for Mohs surgery [...] in the interim since seeing her in [place]. Review systems: patient feels overall excellent health, weight stable, no issues with bleeding, clotting or healing. Chloe Ferreira MD [address] [place] [address], [place], [address], [facility] Dermatology 10/28/2020 15:29:59 OBGyn Episode No OBEpisode recorded.
--- OUTSIDE RECORDS SUMMARY | 2024-09-10 14:57 | XMS_ITS | Referral Summary ---
Author Organization [facility] Address [address] [place] [address] Care Team Providers Care Dry House Attendant Name Role Phone Yuan Lira PA-C Primary Care Provider [phone] Allergies Active Allergy Reactions Criticality Noted Date [...] on file Legal Sex Female 5:16 AM AUTOMOBILE DESIGNER Gender Identity Not on file Sexual Orientation Not on file Last Filed Vital Signs Vital Sign Reading Time Taken Comments Blood Pressure 113/67 10/08/2021 11:15 AM AUTOMOBILE DESIGNER Pulse 69 10/08/2021 11:15 AM AUTOMOBILE DESIGNER Temperature 36.9 C (98.4 F) 10/08/2021 9:25 AM AUTOMOBILE DESIGNER Respiratory Rate 18 10/08/2021 9:25 AM AUTOMOBILE DESIGNER Oxygen Saturation 97% 10/08/2021 11: 15 AM AUTOMOBILE DESIGNER Inhaled Oxygen Concentration - - Weight 74.8 kg (164 lb 14.5 oz) 022 10:08 AM AUTOMOBILE DESIGNER Height 157.5 cm (5' 2) 10/02/2017 9:05 AM AUTOMOBILE DESIGNER Body Mass Index 30.16 10/02/2017 9:05 AM AUTOMOBILE DESIGNER Plan of Treatment Not on file Procedures Procedure Name Priority Date/Time Associated Diagnosis Comments COMPREHENSIVE METABOLIC PANEL STAT 10/02/2017 8:50 AM AUTOMOBILE DESIGNER from Last 3 Months or Most Recently Relevant to Health Maintenance Results * (ABNORMAL) Comprehensive metabolic panel (10/02/2017 8:50 AM AUTOMOBILE DESIGNER) Sodium 138 133 - 144 mmol/L 10/02/2017 9:30 AM [facility] Potassium 3.3(L) 3.4 - 5.3 mmol/L 10/02/2017 9:30 AM [facility] Chloride 103 94 - 109 mmol/L 10/02/2017 9:30 AM [facility] Carbon Dioxide 31 20 - 32 mmol/L 10/02/2017 9:30 AM [facility] Anion Gap 4 3 - 14 mmol/L 10/02/2017 9:30 AM [facility] Glucose 82 70 - 99 mg/dL 10/02/2017 9:30 AM [facility] Urea Nitrogen 14 7 - 30 mg/dL 10/02/2017 9:30 AM [facility] Creatinine 0.79 0.52 - 1.04 mg/dL 10/02/2017 9:30 AM [facility] GFR Estimate 76 >60 mL/min/1.7 m2 10/02/2017 9:30 AM [facility] Comment:Non GFR Calc GFR Estimate If Black >90 >60 mL/min/1.7 m2 10/02/2017 9:30 AM [facility] Comment: GFR Calc Calcium 8.8 8.5 - 10.1 mg/dL 10/02/2017 9:30 AM [facility] Bilirubin Total 0.3 0.2 - 1.3 mg/dL 10/02/2017 9:30 AM [facility] Albumin 3.5 3.4 - 5.0 g/dL 10/02/2017 9:30 AM [facility] Protein Total 7.4 6.8 - 8.8 g/dL 10/02/2017 9:30 AM [facility] Alkaline Phosphatase 71 40 - 150 U/L 10/02/2017 9:30 AM [facility] ALT 54(H) 0 - 50 U/L 10/02/2017 9:30 AM [facility] AST 25 0 - 45 U/L 10/02/2017 9:30 AM [facility] Blood specimen (specimen) 10/02/2017 8:50 AM [facility] 10/02/2017 9:08 AM [facility] Chip Urbina MD LAB - BLOOD ORDERABLES Final Result [facility] [place] [address] [place] [address], [facility] [phone] from Last 3 Months or Most Recently Relevant to Health Maintenance Insurance [address] [place] [address] [facility] INDIVIDUAL FAMILY PLANS OTHER Member Subscriber Plan / Payer (Ef fective 2011-Present) Name:Akanksha Hensley Relation to Subscriber:Employee Name:[id number] Date of :1899 (Home) (Work) Address: [address] [place] [address] Payer ID:[id number] Group ID:Not on file Type:Not on file [id number] Address: [address] [place] [address] Care Teams Dry House Attendant Relationship Specialty Start Date End Date Yuan Lira PA-C [facility] [address] [place] [address] PCP - General 10/08/21
--- OUTSIDE RECORDS SUMMARY | 2024-09-10 14:57 | XMS_ITS | Clinical Summary ---
Author Organization [facility] Address [place], [place] [address] Care Team Providers Care Stable Hand Name Role Phone Pcp, No Primary Care Provider Unavailabl e Allergies Active Allergy Reactions Criticality Noted Date Comments Hydrocodone-Acetaminophen Nausea Only 0 Morphine Vomiting 05/30/2006 Naproxen Other - Describe In Comment Field 10/01/2011 Severe gerd Penicillins Nausea And Vomiting High 01/08/2011 Swelling Medications albuterol HFA (PRO-AIR,VENTOLI N,PROVENTIL) 90 mcg/actuation inhalerIndicatio ns:COPD exacerbation (HC) Inhale 2 Puffs by mouth every 4 hours if needed. Or any brand covered by insurance 1 Inhaler 2 12/23/19 16 Active blood-glucose meter (CONTOUR METER)Indication s:Diabetes type 2, controlled (HC) Dispense meter, test strips, lancets covered by pt ins. E11.9 NIDDM type II - Test 1 time/day 1 Kit 0 02/12/20 16 Active gabapentin (NEURONTIN) 300 mg capsuleIndicatio ns:Carpal tunnel syndrome, unspecified laterality 1 TABLETS AT BEDTIME FOR HAND PAIN. 90 capsule 11/17/19 17 Active acetaminophen-co deine, 300-30 mg, (TYLENOL #3) tabletIndication s:Midline low back pain without sciatica, unspecified chronicity Take 1 tablet by mouth every 4 hours if needed. Max acetaminophen dose: 4000mg in 24 hrs. 30 tablet 11/28/19 17 Active citalopram (CELEXA) 20 mg tabletIndication s:Anxiety Take 1 tablet by mouth once daily. 90 tablet 1 03/11/20 17 Active hydroCHLOROthiaz yulia 50 mg tabletIndication s:Essential hypertension Take 1 tablet by mouth once daily. 90 tablet 3 03/11/20 17 Active levothyroxine (SYNTHROID) 75 mcg tabletIndication s:Hypothyroidism , unspecified type Take 1 tablet by mouth once daily. 90 tablet 1 03/12/20 17 Active hydrOXYzine pamoate (VISTARIL) 25 mg capsuleIndicatio ns:Depression with anxiety TAKE ONE CAPSULE BY MOUTH THREE TIMES DAILY NEEDED FOR ANXIETY 90 capsule 07/26/20 17 Active LORazepam (ATIVAN) 0.5 mg tabIndications:S ituational anxiety Take 1 tablet by mouth 2 times daily if needed for Anxiety. For panic attack. 12 tablet 07/26/20 17 Active metFORMIN (GLUCOPHAGE XR) 500 mg Extended-Release tablet Take 2,000 mg by mouth two times daily with meals. Active glipiZIDE (GLUCOTROL) 10 mg tablet Take 10 mg by mouth two times daily before meals. 12/04/19 23 Active Active Problems Problem Noted Date Diagnosed Date Squamous cell carcinoma in situ of skin 02/24/20 16 Hypothyroidism 01/20/2016 Diabetes type 2, controlled 01/20/2016 Dyslipidemia 01/16/2016 Hypertriglyceridemia 01/16/2016 Carpal tunnel syndrome on both sides 10/31/2014 Overview (12/06/2014): Carpal Tunnel Syndrome cortisone injections with good but temporary relief: 04/2014 and 07/2014. November 2014: EMG at [facility], showed Moderate right and mild left Carpal [...] 2 Maternal Grandmother Mother (Age 63) think PA? 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 Not on file Not on file Not on file Obstetrics History Para Term [...] 91 02/12/2023 12:00 PM CDT Temperature 36.7 C (98.1 F) 02/12/2023 10:34 AM CDT Respiratory Rate 16 02/12/2023 10:45 AM CDT Oxygen Saturation 94% 02/12/2023 12:00 PM CDT Inhaled Oxygen Concentration - - Weight 64.4 kg (142 lb) 02/12/2023 7:00 AM CDT Height 157.5 cm (5' 2) 02/12/2023 7:00 AM CDT Body Mass Index 25.97 02/12/2023 7:00 AM CDT Plan of Treatment Health Maintenance Due Date Last Done Comments Pneumococcal series for age 50+ (1 of 2 - PCV) 1984 Mammogram for age 45-75 09/18/2011 09/18/2010, 05/16 [...] 15-65 Completed 03/31/2012 Hepatitis C screening for ag e 18-79 Completed 03/31/2012 Tdap Completed 03/11/2015 Procedures Procedure Name Priority Date/Time Associated Diagnosis Comments LOGISTIC MANAGER THIN PREP PAP DIAGNOSTIC IMAGED Routine 02/12/2016 [...] Recently Relevant to Health Maintenance Results * LOGISTIC MANAGER THIN PREP PAP DIAGNOSTIC IMAGED (02/12/2016 11:48 AM CDT) LOGISTIC MANAGER CYTOLOGY See Anatomic Pathology case 02/13/2016 12:00 PM CDT [facility] Other (Cervical) Non-Blood / Unknown 02/12/2016 11:48 AM CDT 02/12/2016 11:48 AM CDT Micaela Lainez DO PATHOLOGY/CYTOLOGY Final Re sult [facility] [address] [place] [address], [place] * OCCULT BLOOD IFOBT STOOL (02/12/2016 8:40 AM CDT) STOOL BLOOD ,IFOBT Negative Negative 02/12/2016 11:08 AM CDT [facility] Stool STOOL SPECIMEN / Unknown Non-Blood / Unknown 02/12/2016 8:40 AM CDT 02/12/2016 11:01 AM CDT Micaela Lainez DO LABORATORY Final Resul t [facility] [address] [facility] [place] [address], * (ABNORMAL) LIPID PANEL W REFLEX MEASURED LDL (01/17/2016 7:24 AM CDT) CHOLESTEROL,TOTAL 242(H) 100 - 199 mg/dL 01/17/2016 4:59 PM CDT [facility] TRIGLYCERIDES 326(H) <150 mg/dL 01/17/2016 4:59 PM CDT [facility] HDL CHOLESTEROL 35(L) >40 mg/dL 01/17/2016 4:59 PM CDT [facility] NON-HDL CHOLESTEROL 207(H) <145 mg/dl 01/17/2016 4:59 PM CDT [facility] CHOL/HDL RATIO 6.91(H) <4.50 01/17/2016 4:59 PM CDT [facility] LDL CHOLESTEROL 142(H) <=130 mg/dL 01/17/2016 4:59 PM CDT [facility] PATIENT STATUS FASTING 01/17/2016 4:59 PM CDT [facility] Blood specimen (specimen) BLOOD SPECIMEN / Unknown Venipuncture / Unknown 01/17/2016 7:24 AM CDT 01/17/2016 7:25 AM CDT us Saima Mayo MD CHEMISTRY Final R esult [facility] [address] [place] [address], * ANTI HCV (03/31/2012 3:19 PM CDT) ANTI HCV Non-reacti ve [facility] Blood specimen (specimen) BLOOD SPECIMEN / Unknown 03/31/2012 3:19 PM CDT 03/31/2012 3:18 PM CDT us Cinthia Joya MD SEND OUTS Ashley l Result [facility] [place] [address]IP [address] [place] [address] * ANTI HIV 1/2 (03/31/2012 3:19 PM CDT) ANTI HIV 1/2 Non-reacti [facility] Blood specimen (specimen) BLOOD SPECIMEN / Unknown 03/31/2012 3:19 PM CDT 03/31/2012 3:18 PM CDT us Cinthia Joya MD SEND OUTS Ashley l Result [facility] INTERNAL ZIP [address] [address] [place] [address] * XR MAMMO SCREENING BILATERAL (09/18/2010) Anatomical Region Laterality Modality BREASTS, Breast Left, Breast Right Bilateral Other us Cinthia Joya MD MAMMO Edit ed from Last 3 Months or Most Recently Relevant to Health Maintenance Insurance [employer] Care Teams Stable Hand Relationship Specialty Start Date End Date Pcp, No . PCP - General 08/24/19
--- OUTSIDE RECORDS SUMMARY | 2024-09-10 14:57 | XMS_ITS | Clinical Summary ---
Author Organization [facility] Address [address] [place] [address] Care Team Providers Care System Admin Name Role Phone No Primary/Referring, Phy Primary Care Provider Unavailable Source Comments You are receiving this document as you are listed as the primary care provider,follow-up provider, or the patient has been referred to you for consultation.This is in compliance with the Medicare and[facility] EHR Incentive Program,which states Providers who transition their patient to another setting of careor provider of care or refers their patient to another provider of care shouldprovide summary care record for each transition of care or referral. [facility] Allergies Active Allergy Reactions Criticality Noted Date [...] Comments Blood Pressure 143/91 06/29/2018 12:43 PM NATURAL RESOURCES SPECIALIST Pulse 79 06/29/2018 12:43 PM NATURAL RESOURCES SPECIALIST Temperature 36.9 C (98.4 F) 06/29/2018 12:43 PM NATURAL RESOURCES SPECIALIST Respiratory Rate 20 06/29/2018 12:43 PM NATURAL RESOURCES SPECIALIST Oxygen Saturation 96% 06/29/2018 12:43 PM NATURAL RESOURCES SPECIALIST Inhaled Oxygen Concentration - - Weight 73 kg (161 lb) 06/29/2018 12:43 PM NATURAL RESOURCES SPECIALIST Height 160 cm (5' 3) 06/29/2018 12:43 PM NATURAL RESOURCES SPECIALIST Body Mass Index 28.52 06/29/2018 12:43 PM NATURAL RESOURCES SPECIALIST Plan of Treatment Health Maintenance Due Date [...] age to complete this topic Care Teams System Admin Relationship Specialty Start Date End Date No Primary/Referring, Phy PCP - General 06/29/18
--- OUTSIDE RECORDS SUMMARY | 2024-09-10 14:58 | XMS_ITS | Continuity of Care Document ---
Author Organization [facility] Address [address] [address] [place] [address] Phone Care Team Providers Care Manifold Builder Name Role Phone Rin Mcmillan Unavailable Unavailabl [...] they will dissolve, then swallow - Active levothyroxine 100 mcg capsule take 1 capsule by oral route every other day - Active IBUPROFEN (unknown strength) take 1 tablet by oral route 3 times every day with food as needed Not Available - Active levothyroxine 88 mcg tablet take 1 tablet by oral route every other day - Active metformin ER 1,000 mg tablet,extended release 24hr (osmotic) take 2 tablet by oral route every day with glipizde 1 in am 1 in pm - Active omeprazole 20 mg capsule,delayed release take 1 capsule by oral route every day 30 minutes to 1 hour before a meal 20 MG - Active Vistaril 50 mg capsule take [...] hours as needed 1-2 puff - Active Procedures Procedure Date Routine Serum Collection Offic/outpt E&m Estab Mod-hi 2 Offic/outpt E&m Estab Mod-hi 2 Routine Serum Collection Offic/outpt E&m Estab Mod-hi 2 Routine Serum Collection Offic/outpt E&m Estab Mod-hi 2 Routine Serum Collection Ugi Endo; W/bx 1/mx Level Iv-surg Path Gross/micro Office Cons New/estab Mod Routine Serum Collection Advance Directives Directive Yes / No Effective Date File Name No Information Encounters Encounter Description Practice Location Reason(s) For Visit Diagnoses Date Provider Providers Copied on Encounter [facility], [address] [address], [place], [id number], [place] tel:[phone] [facility] No Information Jonatan Gar . [address] [facility], [facility] [address], [facility] [place] [place] [id number] , [place]. tel:[phone] [facility], [address] [address], [place], [id number], [place] tel:[phone] [facility] No Information [address]. [address] [facility], [address], [place], [id number] , [place]. tel:[phone] [facility], [address] [address], [place], [id number], [place] tel:[phone] [facility] Hepatic fibrosis, advanced fibrosis 5 Jonatan Gar . [address] [facility], [place], [id number] , [place]. [phone] Referring Provider: Referral Self, USE FOR SELF REFERRALS. [facility], [address] [address], [place], [id number], [place] tel:[phone] [facility] Advanced hepatic fibrosis 5 Jonatan Gar . [address] [facility] [address], [address], [place], [id number] , [place]. tel: [phone] Referring Provider: Referral Self, USE FOR SELF REFERRALS. [facility], [address] [address], [place], [id number], [place] tel:[phone] [facility] Nonalcoholic steatohepatitis (VALENCIA)Advanced hepatic fibrosis 4 Jonatan Gar . [address] [facility], [address], [place], [id number] , [place]. tel: [phone] Offic/outpt E&m Estab Mod-hi 2 [facility], [address] [address], [place], [id number], [place] tel:[phone] [facility] GI Symptoms or Concerns (chief complaint) BloatingDietary counseling and surveillance 4 Cal Carranza. [address] [facility], [address], [place], [id number] , [place]. tel: [phone] Referring Provider: Referral Self, USE FOR SELF REFERRALS. [facility], [address] [address], [place], [id number], [place] tel:[phone] [facility] Chronic diarrhea 4 Jonatan Gar . [address] [facility] [address], [address], [place], [place], [id number] , [place]. tel: [phone] Offic/outpt E&m Estab Mod-hi 2 [facility], [address] [address], [place], [id number], [place] tel:[phone] [facility] GI Symptoms or Concerns (chief complaint) Chronic nauseaChronic diarrheaNonalcoholi c steatohepatitis (VAL[place]IA)Chronic depressionElevated blood-pressure reading, w/o diagnosis of htn 4 Jonatan Gar . [address] [facility] [address], [address], [place], [id number] , [place]. [phone] Referring Provider: Referral Self, USE FOR SELF REFERRALS. Offic/outpt E&m Estab Mod-hi 2 [facility], [address] [address], [place], [place], [address], [place] tel:[phone] [facility] GI Symptoms or Concerns (chief complaint) Nonalcoholic steatohepatitis (VAL[place]IA)Early satietyOther fatigueRight lower quadrant abdominal painEssential (primary) hypertension 4 Jonatan Gar . [address] [facility], [address], [place], [id number] , [place]. [phone] Referring Provider: Rin Inman, [address] [facility] [address], [place], [address] . tel:[phone] Offic/outpt E&m Estab Mod-hi 2 [facility], [address] [address], [place], [id number], [place] tel:[phone] [facility] GI Symptoms or Concerns (chief complaint) Nonalcoholic steatohepatitis (VALENCIA)Chronic diarrhea 3 Jonatan Gar . [address] [facility], [address], [place], [address] , [place]. [phone] Referring Provider: Referral Self, USE FOR SELF REFERRALS. [facility], [address] [address], [place], [id number], [place] tel:[phone] [facility] GI Symptoms or Concerns (chief complaint) Early satietyHiatal herniaEarly satietyDiaphragmati c hernia without obstruction or gangrene 3 Anayeli Ferrera . [address] [facility] [address], [address], [place], [address] , [place]. [phone] Referring Provider: Referral Self, USE FOR SELF REFERRALS. [facility], [address] [address], [place], [id number], [place] tel:[phone] [facility] Elevated LFTs 3 Jonatan PAIZ Rin . [address] [facility], [address], [place], [id number] , [place]. [phone] Office Cons New/estab Mod [facility], [address] [address], [place], [id number], [place] tel:[phone] [facility] GI Symptoms or Concerns (chief complaint) Elevated LFTsEarly satiety 3 Jonatan Gar . [address] [facility], [address], [place], [id number] , [place]. [phone] Referring Provider: Yuan PAIZ, [address], [place], [address]. tel:[phone] [facility], [address] [address], [place], [id number], [place] tel:[phone] [facility] No Information [address] [facility], [address], [place], [id number] , [place]. [phone] Family History Family Member Type Diagnosis Age At Onset Sister Problem (finding) Pancreatitis Father Problem Diabetes mellitus Mother Problem (finding) Thyroid disorder Mother Problem (finding) Pancreatitis Brother Problem (finding) Pancreatitis Father Problem Congenital heart disease Sister Problem Diabetes mellitus Mother Problem Diabetes mellitus Sister Problem (finding) Gallbladder disease Son Problem (finding) GERD Mother Problem Heart disease Mother Problem (finding) Gallbladder disease Son Problem (finding) Pancreatitis Immunizations Vaccine Date Status Comments Afluria Qd administered Note: [facility] bi-directional interface ; Source: Other Registry tetanus toxoid, reduced diphtheria toxoid, and acellular pertussis vaccine, adsorbed administered Note: [facility] bi-direct ional interface ; Source: Other Registry Payers Payer name Insurance type Covered green party ID Jens crain(s) Blue Plus 2023 MD Care [id number] Social History Type Description Quantity Date Captured Comments Alcohol Use Details Unknown Caffeine Use Details Unknown Tobacco Use Status Smoking Status No Information Sex Female Chief Complaint And Reason For Visit No Information Reason For Referral Reason For Referral No Information Plan Of Treatment Date Type Action Status Goal Lifestyle education regardin g diet completed Referral Ordered: CMP Appointment date/timeframe: 08/18/2024 ordered Referral Ordered: CBC W/diff, Whole Blood Appointment date/timeframe: 08/18/2024 ordered Referral Ordered: AFP, Serum, Tumor Marker Appointment date/timeframe: 08/18/2024 ordered Referral Ordered: PT/INR, Whole Blood Appointment date/timeframe: 08/18/2024 ordered Referral Ordered: Hepatoma Protocol Appointment date/timeframe: First Available ordered Referral Ordered: referred to Endocrinology Diabetes management, suspect gastropares ordered Referral Ordered: referred to Psychiatry Depression ordered Referral Ordered: Gastric Emptying Study (4 Hours) Appointment date/timeframe: 03/31/2024 ordered Referral Ordered: Ultrasound Liver Appointment date/timeframe: 09/07/2024 ordered Referral Ordered: CT Abdomen And Pelvis [...] Test, Whole Blood Appointment date/timeframe: 03/05/2023 ordered Appointment Akanksha [place] BOOKED History Of Present Illness Encounter Date Complaint History Of Prese nt Illness GI Symptoms or Concerns Ms. Arsen ramires is a pleasant 58-year-old female who presents for further evaluation of abdominal bloating and diarrhea.Past medical history is also notable for MASLD with advanced fibrosis and please refer to note from my colleage Rin Cheung for additional details regarding this. She has had a history of nausea and vomiting with associated abdominal pain and early satiety,, however this is dramatically improved as her glycemic control has improved. She brought in her Dexcom which shows a hemoglobin A1c of 7.2%. She also reports that her nausea and vomiting episodes have been associated with episodes of hypoglycemia which have also since improved.She does continue to have episodes of bloating, typically postprandial. She cannot identify any specific trigger foods does have occasional reflux episodes although this is rare. Frequently chews gum but does not necessarily drink from a straw. Had previously been on Ozempic but notes that this is improved since discontinuing the medication.Regarding her diarrhea, she feels that this has been worsened by her metformin. There are no clear trigger foods. Uses her air Fryer and does her best to avoid greasy or oily foods. Of note, she also frequently will use 600 mg ibuprofen. Does have Tylenol but feels like this causes mild indigestion.Otherwise denies any significant weight changes, melena, hematochezia, nausea, lower abdominal pain, or constipation. GI Symptoms or Concerns Akanksha [place] is [...] colonoscopy was about a year ago in [place] unfortunately I do not have results of [...] disease status post thyroidectomy.I reviewed records from [facility] and clinics which included laboratory testing for on 12/03/2022 t his and included a CBC with an elevated [...] a PPI. Reports regular bowel movements daily- [place] Type 4 or 6 in consistency. She [...] Information Instructions Date Instruction Additional Infor sophia Lifestyle education regarding di et Related to Dietary counseling and surveillance Insulin resistance diet Related to Nonalcoholic steatohepatitis (VALENCIA) Hiatal Hernia Related to Hiata l hernia Assessments Type Assessment Date No Information Patient Care Teams Name Effective Dates (start - stop) Status Members No Information
[2024-09-10 15:23] VITALS: BP 150/90; PULSE 82; RESP 18; TEMP 37.1; O2SAT 95; BMI 26.0
--- NOTE | 2024-09-10 15:51 | ED_ITS ---
HPI - General Adult General Date Seen: 09/10/24 Chief complaint: Laceration/Wound Stated complaint: cut between fingers Time Seen by Provider: 09/10/24 15:03 History of Present Illness HPI narrative: Patient is a 59-year-old woman who says she was washing dishes at home. She reached down to clean a glass not realizing that the glass was broken and got a cut in the webspace between her 4th and 5th fingers on the right hand. She says she did not think it needed anything but her family thought she should get it checked out. Her tetanus is due this year but she says she would rather get that in clinic. This is a low risk wound so I think that is reasonable. No complaints of numbness or loss of function. Related Data Home Medications ?Medication ?Instructions ?Recorded ?Confirmed Diabetic Test Strips 02/17/22 07/10/24 blood-glucose meter (Accu-Chek 02/17/22 07/10/24 Guide Glucose Meter) dimenhydrinate 50 mg tablet 50 mg PO Q4-6H PRN 12/01/23 07/10/24 (Dramamine) Previous Rx's ?Medication ?Instructions ?Recorded lorazepam 0.5 mg tablet 0.5 mg PO .Daily as needed PRN 10/01/23 fear of flying #10 tabs gabapentin 300 mg capsule 300 mg PO TID 90 days #270 caps 12/08/23 chlorhexidine gluconate 0.12 % 15 ml mucous membrane BID #1,893 mL 01/22/24 mouthwash hydrochlorothiazide 50 mg tablet 50 mg PO DAILY #90 tabs 03/22/24 metformin 500 mg tablet,extended 2,000 mg (4 x 500 mg) PO QDAY 90 03/22/24 release 24 hr days #360 tabs citalopram 20 mg tablet See Rx Instructions .Route 05/22/24 .COMPLEX #90 tabs hydroxyzine pamoate 25 mg capsule 25 mg PO TID PRN anxiety #90 caps 06/30/24 albuterol sulfate 90 mcg/actuation 2 puff inhalation Q4-6H PRN 07/10/24 aerosol inhaler shortness of breath or wheezing #8.5 grams blood-glucose sensor (Dexcom G7 #3 ea 07/10/24 Sensor device) fluorouracil 5 % topical cream 5 applic topical DIRECTED #40 07/10/24 grams glipizide 10 mg tablet, extended 20 mg (2 x 10 mg) PO BID #180 tabs 07/10/24 release 24 hr levothyroxine 100 mcg tablet 100 mcg PO QDAY #45 tabs 07/12/24 levothyroxine 88 mcg tablet 88 mcg PO .qod #45 tabs 08/21/24 ondansetron 4 mg disintegrating 4 mg PO Q4-6H PRN nausea and 08/21/24 tablet vomiting #15 tabs blood sugar diagnostic (Contour #100 ea 09/08/24 Test Strips) Allergies Allergy/AdvReac Type Severity Reaction Status Date / Time Penicillins Allergy Mild Swelling Verified 07/10/24 13:47 of Lip/Tongue/Throat hydrocodone Allergy Verified 07/10/24 13:47 semaglutide (From Ozempic) AdvReac Severe nausea, Verified 07/10/24 13:47 vomiting, morphine AdvReac Mild Vomiting Verified 07/10/24 13:47 PFSH PFSH Medical History Dental caries ?K02.9 - Dental caries, unspecified (ICD-10) Seasonal allergic rhinitis ?J30.2 - Other seasonal allergic rhinitis (ICD-10) Malignant neoplasm of cervix ?C53.9 - Malignant neoplasm of cervix uteri, unspecified (ICD-10) 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 - Epidermal thickening, unspecified (ICD-10) History of squamous cell carcinoma in situ (SCCIS) of skin ?Z86.007 - Personal history of in-situ neoplasm of skin (ICD-10) History of malignant neoplasm of cervix ?Z85.41 - Personal history of malignant neoplasm of cervix uteri (ICD-10) History of eating disorder ?Z86.59 - Personal history of other mental and behavioral disorders (ICD-10) History of bladder stone ?Z87.448 - Personal history of other diseases of urinary system (ICD-10) Surgical History History of liver biopsy ?Z98.890 - Other specified postprocedural states (ICD-10) History of bladder repair surgery ?Z98.890 - Other specified postprocedural states (ICD-10) History of shoulder surgery ?Z98.890 - Other specified postprocedural states (ICD-10) History of hysterectomy ?Z90.710 - Acquired absence of both cervix and uterus (ICD-10) History of carpal tunnel release of both wrists ?Z98.890 - Other specified postprocedural states (ICD-10) History of bladder surgery ?Z98.890 - Other specified postprocedural states (ICD-10) Family History Mother Diabetes Sudden cardiac , Onset Age: 62 Father Diabetes Sister Diabetes Brother Diabetes Paternal Grandfather Diabetes Paternal Grandmother Diabetes Social History Narrative: Smoker Does not drink alcohol Does not use illicit drugs Smoking Status: Current every day smoker What tobacco products do you use: cigarettes Smoking packs per day: 0.5 Smoking cigarettes per day: 10.0 Do you use any of these nicotine containing products: None How often do you have a drink containing alcohol: never How often do you have six or more drinks on one occasion: Never AUDIT-C Alcohol total score: 0 Non-prescribed substance use: denies use service: No Exam Narrative: Exam Narrative: Vital signs reviewed In general, alert, well-appearing woman. Extremities: Examination of the right hand shows a 1 cm laceration in the webspace between the 4th digits. There is some venous bleeding. Distal CMS normal. Function of the 4th and 5th fingers is normal. Const: Vital Signs, click to edit/add: Vital Signs - 24 hr 09/10/24 15:23 Temperature 98.8 F Pulse Rate [Pulse Oximeter] 82 Respiratory Rate 18 Blood Pressure [Ri ght Forearm] 150/90 H Pulse Oximetry 95 Oxygen Delivery Me thod Room Air Course Course ED Course: Procedure note: The wound was anesthetized with lidocaine with epinephrine and then cleaned with normal saline. No obvious injury to deeper structures and no obvious foreign body although visibility is somewhat limited because of the location of the wound. I used 2 simple interrupted sutures using 4-0 nylon to close the wound. She tolerated this well without immediate complication. Dressing applied. She has had some problems with wound healing in the past so will have her wait 10 days before having the sutures removed. Return any time for signs of infection, recommend tetanus in clinic in the near future. Vital Signs Vital signs: Initial Vital Signs Temperature 98.8 F 09/10/24 15:23 Temperature Source Temporal Artery Scan 09/10/24 15:23 Pulse Rate 82 09/10/24 15:23 Pulse Rhythm Regular 09/10/24 15:23 Respiratory Rate 18 09/10/24 15:23 Blood Pressure 150/90 H 09/10/24 15:23 Blood Pressure Mean 110 H 09/10/24 15:23 Blood Pressure Position Sitting 09/10/24 15:23 Pulse Oximetry 95 09/10/24 15:23 Oxygen Delivery Method Room Air 09/10/24 15:23 Vital Signs Temperature 98.8 F 09/10/24 15:23 Pulse Rate 82 09/10/24 15:23 Respiratory Rate 18 09/10/24 15:23 Blood Pressure 150/90 H 09/10/24 15:23 Pulse Oximetry 95 09/10/24 15:23 Oxygen Delivery Method Room Air 09/10/24 15:23 Temperature 98.8 F 09/10/24 15:23 Pulse Rate 82 09/10/24 15:23 Respiratory Rate 18 09/10/24 15:23 Blood Pressure 150/90 H 09/10/24 15:23 Pulse Oximetry 95 09/10/24 15:23 Oxygen Delivery Method Room Air 09/10/24 15:23 Discharge Plan Discharge Clinical Impression: Laceration Patient Disposition: Home, Self-Care Condition: Improved Instructions: Laceration (ED) Additional Instructions: Your tetanus is due this year, recommend that you get that through clinic as we have not done it today. Sutures should be removed in 10 days. Return for signs of infection. Prescriptions: No Action lorazepam 0.5 mg tablet 0.5 mg PO .Daily as needed PRN (Reason: fear of flying) Qty: 10 0RF Rx Instructions: 1 po 30 minutes prior to flying for anxiety. dimenhydrinate [Dramamine] 50 mg tablet 50 mg PO Q4-6H PRN (DME) blood-glucose meter [Accu-Chek Guide Glucose Meter] Misc See Rx Instructions .Route Rx Instructions: As directed (DME) Diabetic Test Strips Misc See Rx Instructions .Route Rx Instructions: As directed hydrochlorothiazide 50 mg tablet 50 mg PO DAILY Qty: 90 3RF metformin 500 mg tablet extended release 24 hr 2,000 mg PO QDAY 90 Days Qty: 360 1RF fluorouracil 5 % cream 5 applic topical DIRECTED Qty: 40 0RF Rx Instructions: Apply topically to affected area one day every week. glipizide 10 mg tablet extended release 24hr 20 mg PO BID Qty: 180 1RF (DME) Dexcom G7 Sensor Device See Rx Instructions .Route Qty: 3 11RF Rx Instructions: As directed albuterol sulfate 90 mcg/actuation HFA aerosol inhaler 2 puff inhalation Q4-6H PRN (Reason: shortness of breath or wheezing) Qty: 8.5 3RF chlorhexidine gluconate 0.12 % mouthwash 15 ml mucous membrane BID Qty: 1893 0RF gabapentin 300 mg capsule 300 mg PO TID 90 Days Qty: 270 3RF citalopram 20 mg tablet See Rx Instructions .ROUTE .COMPLEX Qty: 90 2RF Dose Instruction: TAKE 1 TABLET BY MOUTH DAILY Rx Instructions: TAKE 1 TABLET BY MOUTH DAILY hydroxyzine pamoate 25 mg capsule 25 mg PO TID PRN (Reason: anxiety) Qty: 90 0RF levothyroxine 100 mcg tablet 100 mcg PO QDAY Qty: 45 1RF Rx Instructions: Alternate every other day with 88mcg and 100mcg levothyroxine 88 mcg tablet 88 mcg PO .qod Qty: 45 1RF Rx Instructions: alternate with 100mcg levothyroxine ondansetron 4 mg tablet,disintegrating 4 mg PO Q4-6H PRN (Reason: nausea and vomiting) Qty: 15 0RF (DME) Contour Test Strips Strip See Rx Instructions .Route Qty: 100 1RF Rx Instructions: TID Follow Up/Referrals: Yuan Lira PA-C [Primary Care Provider] - [facility]
--- OUTSIDE RECORDS SUMMARY | 2024-09-10 16:05 | XMS_ITS | Encounter Summary ---
Author Organization [facility] Address [address] [place] [address] Care Team Providers Care Jewelry Casting Model Maker Apprentice Name Role Phone Yuan Lira PA-C Primary Care Provider [phone] Encounter Details Date Type Department Care Team [...] on file Legal Sex Female 5:16 AM STAFF CERTIFIED NURSE MIDWIFE Gender Identity Not on file Sexual Orientation Not on file COVID-19 Exposure Response Date Recorded In the last month, have you been in contact with someone who was confirmed or suspected to have Coronavirus / COVID-19? No / Unsure 10/08/2021 9:20 AM STAFF CERTIFIED NURSE MIDWIFE documented as of this encounter Plan of Treatment Not on file documented as of this encounter Visit Diagnoses Not on filedocumented in this encounter Care Teams Jewelry Casting Model Maker Apprentice Relationship Specialty Start Date End Date Yuan Lira PA-C [address] [facility] [place] [address] PCP - General 10/08/21 documented as of this encounter
--- OUTSIDE RECORDS SUMMARY | 2024-09-10 16:05 | XMS_ITS | Clinical Summary ---
Author Organization [facility] Address [address] [place] [address] Care Team Providers Care Structural Engineer Name Role Phone Yuan Lira PA-C Primary Care Provider [phone] Allergies Active Allergy Reactions Criticality Noted Date [...] on file Legal Sex Female 5:16 AM DIRECTOR OF THE BIOPHYSICS FACILITY Gender Identity Not on file Sexual Orientation Not on file Last Filed Vital Signs Vital Sign Reading Time Taken Comments Blood Pressure 113/67 10/08/2021 11:15 AM DIRECTOR OF THE BIOPHYSICS FACILITY Pulse 69 10/08/2021 11:15 AM DIRECTOR OF THE BIOPHYSICS FACILITY Temperature 36.9 C (98.4 F) 10/08/2021 9:25 AM DIRECTOR OF THE BIOPHYSICS FACILITY Respiratory Rate 18 10/08/2021 9:25 AM DIRECTOR OF THE BIOPHYSICS FACILITY Oxygen Saturation 97% 10/08/2021 11: 15 AM DIRECTOR OF THE BIOPHYSICS FACILITY Inhaled Oxygen Concentration - - Weight 74.8 kg (164 lb 14.5 oz) 022 10:08 AM DIRECTOR OF THE BIOPHYSICS FACILITY Height 157.5 cm (5' 2) 10/02/2017 9:05 AM DIRECTOR OF THE BIOPHYSICS FACILITY Body Mass Index 30.16 10/02/2017 9:05 AM DIRECTOR OF THE BIOPHYSICS FACILITY Plan of Treatment Health Maintenance Due Date [...] COMPREHENSIVE METABOLIC PANEL STAT 10/02/2017 8:50 AM DIRECTOR OF THE BIOPHYSICS FACILITY from Last 3 Months or Most Recently Relevant to Health Maintenance Results * (ABNORMAL) Comprehensive metabolic panel (10/02/2017 8:50 AM DIRECTOR OF THE BIOPHYSICS FACILITY) Sodium 138 133 - 144 mmol/L 10/02/2017 [...] CENTER Blood specimen (specimen) 10/02/2017 8:50 AM DIRECTOR OF THE BIOPHYSICS FACILITY 10/02/2017 9:08 AM [facility] Chip Urbina MD LAB - BLOOD ORDERABLES Final Result [facility] [address] [place] [id number], [facility] [phone] from Last 3 Months or Most Recently Relevant to Health Maintenance Insurance [address] [id number] [facility] INDIVIDUAL FAMILY PLANS OTHER Member Subscriber Plan / Payer (Ef fective 2011-Present) Name:[place]Akanksha Moy Relation to Subscriber:Employee Name:[employer] Date of :1899 (Home) (Work) Address: [address] [place] [address] Payer ID:[id number] Group ID:Not on file Type:Not on file [id number] Address: [address] [place] [address] Care Teams Structural Engineer Relationship Specialty Start Date End Date Yuan Lira PA-C [facility] [address] [place] [address] [place] [address] PCP - General 10/08/21
--- OUTSIDE RECORDS SUMMARY | 2024-09-10 16:05 | XMS_ITS | Clinical Summary ---
Author Organization [facility] Address [address] [place] [address] Care Team Providers Care Toe Stapler Name Role Phone No Primary/Referring, Phy Primary Care Provider Unavailable Source Comments You are receiving this document as you are listed as the primary care provider,follow-up provider, or the patient has been referred to you for consultation.This is in compliance with the Medicare and[facility] [place] EHR Incentive Program,which states Providers who transition their patient to another setting of careor provider of care or refers their patient to another provider of care shouldprovide summary care record for each transition of care or referral. Oculo Therapy Allergies Active Allergy Reactions Criticality Noted Date [...] Comments Blood Pressure 143/91 06/29/2018 12:43 PM OWNER MANAGER Pulse 79 06/29/2018 12:43 PM OWNER MANAGER Temperature 36.9 C (98.4 F) 06/29/2018 12:43 PM OWNER MANAGER Respiratory Rate 20 06/29/2018 12:43 PM OWNER MANAGER Oxygen Saturation 96% 06/29/2018 12:43 PM OWNER MANAGER Inhaled Oxygen Concentration - - Weight 73 kg (161 lb) 06/29/2018 12:43 PM OWNER MANAGER Height 160 cm (5' 3) 06/29/2018 12:43 PM OWNER MANAGER Body Mass Index 28.52 06/29/2018 12:43 PM OWNER MANAGER Plan of Treatment Health Maintenance Due [...] age to complete this topic Care Teams Toe Stapler Relationship Specialty Start Date End Date No Primary/Referring, Phy PCP - General 06/29/18
--- OUTSIDE RECORDS SUMMARY | 2024-09-10 16:05 | XMS_ITS | Continuity of Care Document ---
Author Organization [facility] Address [address] [address] [place] [address] Phone Care Team Providers Care Cardiac Sonographer Name Role Phone Rin Mcmillan Unavailable Unavailabl [...] Encounter [facility], [address] [address], [place], [id number], [place] tel:[phone] [facility] No Information Jonatan Gar . [address] [facility], [facility] [address], [facility], [id number] , [place]. tel:[phone] [facility], [address] [address], [place], [id number], [place] tel:[phone] [facility] No Information 5 Cal Carranza. [address] [facility], [address], [place], [id number] , [place]. tel:[phone] [facility], [address] [address], [place], [id number], [place] tel:[phone] [facility] Hepatic fibrosis, advanced fibrosis 5 Jonatan Gar . [address] [facility], [address], [place], [id number] , [place]. [phone] Referring Provider: Referral Self, USE FOR SELF REFERRALS. [facility], [address] [address], [place], [id number], [place] tel:[phone] [facility] Advanced hepatic fibrosis 5 Jonatan Gar . [address] [facility], [address], [place], [id number] , [place]. tel: [phone] Referring Provider: Referral Self, USE FOR SELF REFERRALS. [facility] [place], [address] [address], [place], [id number], [place] tel:[phone] [facility] Nonalcoholic steatohepatitis ([place])Advanced hepatic fibrosis 4 Jonatan Gar . [address] [facility], [address], [place], [id number] , [place]. tel: [phone] Offic/outpt E&m Estab Mod-hi 2 [facility] [place], [address] [address], [place], [id number], [place] tel:[phone] [facility] GI Symptoms or Concerns (chief complaint) BloatingDietary counseling and surveillance 4 Cal Carranza. [address] [facility] [address], [address], [place], [id number] , [place]. tel: [phone] Referring Provider: Referral Self, USE FOR SELF REFERRALS. [facility] [place], [address] [address], [place], [address], [place] tel:[phone] [facility] Chronic diarrhea 4 Jonatan Gar . [address] [facility] [address], [address], [place], [place], [id number] , [place]. tel: [phone] Offic/outpt E&m Estab Mod-hi 2 [facility], [address] [address], [place], [id number], [place] tel:[phone] [facility] GI Symptoms or Concerns (chief complaint) Chronic nauseaChronic diarrheaNonalcoholi c steatohepatitis ([place])Chronic depressionElevated blood-pressure reading, w/o diagnosis of htn 4 Jonatan Gar . [address] [facility] [address], [address], [place], [place], [id number] , [place]. [phone] Referring Provider: Referral Self, USE FOR SELF REFERRALS. Offic/outpt E&m Estab Mod-hi 2 [facility], [address] [address], [place], [id number], [place] tel:[phone] [facility] GI Symptoms or Concerns (chief complaint) Nonalcoholic steatohepatitis ([place])Early satietyOther fatigueRight lower quadrant abdominal painEssential (primary) hypertension 4 Jonatan Gar . [address] [facility] [address], [address], [place], [place], [id number] , [place]. [phone] Referring Provider: Rin Inman, [address] [facility] [address], [place], [address] . tel:[phone] Offic/outpt E&m Estab Mod-hi 2 [facility], [address] [address], [place], [address], [place] tel:[phone] [facility] GI Symptoms or Concerns (chief complaint) Nonalcoholic steatohepatitis ([place])Chronic diarrhea 3 Jonatan Gar . [address] [facility] [address], [address], [place], [id number] , [place]. [phone] Referring Provider: Referral Self, USE FOR SELF REFERRALS. [facility], [address] [address], [place], [id number], [place] tel:[phone] [facility] GI Symptoms or Concerns (chief complaint) Early satietyHiatal herniaEarly satietyDiaphragmati c hernia without obstruction or gangrene 3 Anayeli Ferrera . [address] [facility] [address], [address], [place], [id number] , [place]. [phone] Referring Provider: Referral Self, USE FOR SELF REFERRALS. [facility] [place], [address] [address], [place], [id number], [place] tel:[phone] [facility] Elevated LFTs 3 Jonatan PAIZ Rin . [address] [facility], [address], [place], [id number] , [place]. [phone] Office Cons New/estab Mod [facility], [address] [address], [place], [id number], [place] tel:[phone] [facility] GI Symptoms or Concerns (chief complaint) Elevated LFTsEarly satiety 3 Jonatan Gar . [address] [facility], [address], [place], [id number] , [place]. [phone] Referring Provider: Yuan PAIZ, [address], [place], [address]. tel:[phone] [facility], [address] [address], [place], [id number], [place] tel:[phone] [facility] No Information 3 Johnny Pagan. [address] [facility], [address], [place], [id number] , [place]. [phone] Family History Family Member Type Diagnosis Age [...] Registry Payers Payer name Insurance type Covered democrat ID Jens crain(s) Blue Plus 2023 [employer] Care [id number] Social History Type Description Quantity Date Captured [...] colonoscopy was about a year ago in [place] unfortunately I do not have results of [...] disease status post thyroidectomy.I reviewed records from [facility] and clinics which included laboratory testing [...] a PPI. Reports regular bowel movements daily- [place]fort Type 4 or 6 in consistency. She [...]
--- OUTSIDE RECORDS SUMMARY | 2024-09-10 16:05 | XMS_ITS | Clinical Summary ---
Author Organization [facility] Address [place], [place] [address] Care Team Providers Care Assembler Filters Name Role Phone Pcp, No Primary Care [...] 04/2014 and 07/2014. November 2014: EMG at [place], showed Moderate right and mild left Carpal [...] 2 Maternal Grandmother Mother (Age 63) think [place]? 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 Not on file Not on file [...] Procedure Name Priority Date/Time Associated Diagnosis Comments BATTERY ASSEMBLER DRY CELL THIN PREP PAP DIAGNOSTIC IMAGED Routine 02/12/2016 [...] Recently Relevant to Health Maintenance Results * BATTERY ASSEMBLER DRY CELL THIN PREP PAP DIAGNOSTIC IMAGED (02/12/2016 11:48 AM CDT) BATTERY ASSEMBLER DRY CELL CYTOLOGY See Anatomic Pathology case 02/13/2016 12:00 PM CDT [facility] Other (Cervical) Non-Blood / Unknown 02/12/2016 11:48 AM CDT 02/12/2016 11:48 AM CDT Micaela Lainez DO PATHOLOGY/CYTOLOGY Final Re sult [facility] [address] [place] [address], [place] * OCCULT BLOOD IFOBT STOOL (02/12/2016 8:40 AM CDT) STOOL BLOOD ,IFOBT Negative Negative 02/12/2016 11:08 AM CDT [facility] Stool STOOL SPECIMEN / Unknown Non-Blood / Unknown 02/12/2016 8:40 AM CDT 02/12/2016 11:01 AM CDT Micaela Lainez DO LABORATORY Final Resul t [facility] [address] [facility] [place] [address], * (ABNORMAL) LIPID PANEL W REFLEX MEASURED LDL (01/17/2016 7:24 AM CDT) CHOLESTEROL,TOTAL 242(H) 100 - 199 mg/dL 01/17/2016 4:59 PM CDT [facility] TRIGLYCERIDES 326(H) <150 mg/dL 01/17/2016 4:59 PM CDT [facility] HDL CHOLESTEROL 35(L) >40 mg/dL 01/17/2016 4:59 PM CDT [facility] NON-HDL CHOLESTEROL 207(H) <145 mg/dl 01/17/2016 4:59 PM CDT [facility] CHOL/HDL RATIO 6.91(H) <4.50 01/17/2016 4:59 PM CDT [facility] LDL CHOLESTEROL 142(H) <=130 mg/dL 01/17/2016 4:59 PM CDT [facility] PATIENT STATUS FASTING 01/17/2016 4:59 PM CDT [facility] Blood specimen (specimen) BLOOD SPECIMEN / Unknown Venipuncture / Unknown 01/17/2016 7:24 AM CDT 01/17/2016 7:25 AM CDT us Saima Mayo MD CHEMISTRY Final R esult [facility] [address] [place] [address], * ANTI HCV (03/31/2012 3:19 PM CDT) ANTI HCV Non-reacti ve [facility] Blood specimen (specimen) BLOOD SPECIMEN / Unknown 03/31/2012 3:19 PM CDT 03/31/2012 3:18 PM CDT us Cinthia Joya MD SEND OUTS Ashley l Result [facility] [place] ZIP [address] [place] [address] * ANTI HIV 1/2 (03/31/2012 3:19 PM CDT) ANTI HIV 1/2 Non-reacti [facility] Blood specimen (specimen) BLOOD SPECIMEN / Unknown 03/31/2012 3:19 PM CDT 03/31/2012 3:18 PM CDT us Cinthia Joya MD SEND OUTS Ashley l Result [facility] INTERNAL ZIP [address] [address] [place] [address] * XR MAMMO SCREENING BILATERAL (09/18/2010) Anatomical Region Laterality Modality BREASTS, Breast Left, Breast Right Bilateral Other us Cinthia Joya MD MAMMO Edit ed from Last 3 Months or Most Recently Relevant to Health Maintenance Insurance [employer] Care Teams Assembler Filters Relationship Specialty Start Date End Date Pcp, No . PCP - General 08/24/19
--- OUTSIDE RECORDS SUMMARY | 2024-09-10 16:05 | XMS_ITS | Referral Summary ---
Author Organization [facility] Address [address] [place] [address] Care Team Providers Care Manager Materials Management Name Role Phone Yuan Lira PA-C Primary Care Provider [phone] Allergies Active Allergy Reactions Criticality Noted Date [...] on file Legal Sex Female 5:16 AM PIT SUPERVISOR Gender Identity Not on file Sexual Orientation Not on file Last Filed Vital Signs Vital Sign Reading Time Taken Comments Blood Pressure 113/67 10/08/2021 11:15 AM PIT SUPERVISOR Pulse 69 10/08/2021 11:15 AM PIT SUPERVISOR Temperature 36.9 C (98.4 F) 10/08/2021 9:25 AM PIT SUPERVISOR Respiratory Rate 18 10/08/2021 9:25 AM PIT SUPERVISOR Oxygen Saturation 97% 10/08/2021 11: 15 AM PIT SUPERVISOR Inhaled Oxygen Concentration - - Weight 74.8 kg (164 lb 14.5 oz) 022 10:08 AM PIT SUPERVISOR Height 157.5 cm (5' 2) 10/02/2017 9:05 AM PIT SUPERVISOR Body Mass Index 30.16 10/02/2017 9:05 AM PIT SUPERVISOR Plan of Treatment Not on file Procedures Procedure Name Priority Date/Time Associated Diagnosis Comments COMPREHENSIVE METABOLIC PANEL STAT 10/02/2017 8:50 AM PIT SUPERVISOR from Last 3 Months or Most Recently Relevant to Health Maintenance Results * (ABNORMAL) Comprehensive metabolic panel (10/02/2017 8:50 AM PIT SUPERVISOR) Sodium 138 133 - 144 mmol/L 10/02/2017 9:30 AM [facility] Potassium 3.3(L) 3.4 - 5.3 mmol/L 10/02/2017 9:30 AM [facility] Chloride 103 94 - 109 mmol/L 10/02/2017 9:30 AM [facility] Carbon Dioxide 31 20 - 32 mmol/L 10/02/2017 9:30 AM [facility] Anion Gap 4 3 - 14 mmol/L 10/02/2017 9:30 AM [facility] Glucose 82 70 - 99 mg/dL 10/02/2017 9:30 AM [facility] Urea Nitrogen 14 7 - 30 mg/dL 10/02/2017 9:30 AM [facility] Creatinine 0.79 0.52 - 1.04 mg/dL 10/02/2017 9:30 AM [facility] GFR Estimate 76 >60 mL/min/1.7 m2 10/02/2017 9:30 AM [facility] Comment:Non GFR Calc GFR Estimate If Black >90 >60 mL/min/1.7 m2 10/02/2017 9:30 AM [facility] Comment: GFR Calc Calcium 8.8 8.5 - 10.1 mg/dL 10/02/2017 9:30 AM [facility] Bilirubin Total 0.3 0.2 - 1.3 mg/dL 10/02/2017 9:30 AM [facility] Albumin 3.5 3.4 - 5.0 g/dL 10/02/2017 9:30 AM [facility] Protein Total 7.4 6.8 - 8.8 g/dL 10/02/2017 9:30 AM [facility] Alkaline Phosphatase 71 40 - 150 U/L 10/02/2017 9:30 AM [facility] ALT 54(H) 0 - 50 U/L 10/02/2017 9:30 AM [facility] AST 25 0 - 45 U/L 10/02/2017 9:30 AM [facility] Blood specimen (specimen) 10/02/2017 8:50 AM [facility] 10/02/2017 9:08 AM [facility] Chip Urbina MD LAB - BLOOD ORDERABLES Final Result [facility] [place] [address], [facility] [phone] from Last 3 Months or Most Recently Relevant to Health Maintenance Insurance [address] [place] [id number] [facility] [facility] INDIVIDUAL FAMILY PLANS OTHER Member Subscriber Plan / Payer (Ef fective 2011-Present) Name:Akanksha Hensley Relation to Subscriber: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
== END 2024-09-10 16:10 | disposition home or self-care (01) ==
PROVIDERS: Emergency Provider Emergency Medicine; PCP Physician Assistant Medical
DX: S61.411A Laceration without foreign body of right hand, initial encounter (principal); W25.XXXA Contact with sharp glass, initial encounter
CPT/HCPCS: 12001; 99283

== ENCOUNTER 2025-04-25 07:43 | Outpatient (CLI) | payer BC, SELFPAY | END 2025-04-25 07:44 | disposition home or self-care (01) | PROVIDERS: PCP Physician Assistant Medical; Visit Provider Physician Assistant Medical | DX: Z00.00 Encounter for general adult medical examination without abnormal findings (principal) | CPT/HCPCS: 80053; 80061; 82043; 82570; 84439; 84443; 87624; 87625; 88141; 88142; 88175 ==

== ENCOUNTER 2025-05-22 10:07 | Outpatient (CLI) | payer BC, SELFPAY ==
--- NOTE | 2025-05-22 11:30 | CRLHL7_ITS ---
For Patients: As a result of the Century Cures Act, medical imaging exams and procedure reports are released immediately into your electronic medical record. You may view this report before your referring provider. If you have questions, please contact your health care provider. INDICATION: BILATERAL SCREENING MAMMOGRAM, ASYMPTOMATIC 59 Y/O FEMALE COMPARISON: 11/09/2017, 09/18/2010 TECHNIQUE: Digital mammogram in CC and MLO projections including computer-aided detection (CAD) and tomosynthesis. BREAST COMPOSITION: There are scattered areas of fibroglandular density. FINDINGS: No suspicious findings. ASSESSMENT: BI-RADS 1 Negative RECOMMENDATION: Annual screening mammogram. A lay language report of this examination will be provided to the patient. Dictated by: Xochilt Oropeza MD @ 05/23/2025 06:55:35 (Electronically Signed)
== END 2025-05-22 10:08 | disposition home or self-care (01) ==
LOC: MAMMO 10:07
PROVIDERS: PCP Physician Assistant Medical; Visit Provider Physician Assistant Medical
DX: Z12.31 Encounter for screening mammogram for malignant neoplasm of breast (principal)
CPT/HCPCS: 77063; 77067

== ENCOUNTER 2025-07-18 10:49 | Outpatient (CLI) | payer BC, SELFPAY | END 2025-07-18 10:50 | disposition home or self-care (01) | LOC: NFLDREF 07-24 17:24 | PROVIDERS: PCP Physician Assistant Medical; Referring Provider Physician Assistant Medical; Visit Provider Physician Assistant Medical | DX: E03.9 Hypothyroidism, unspecified (principal) | CPT/HCPCS: 84443 ==